=== PATIENT | female | born 1935 | race Caucasian/White ===

== ENCOUNTER 2016-07-25 13:17 | Inpatient (IN) | payer MEDICARE ==
[~2016-07-25] VITALS: Ht 162.6 cm; Wt 71.2 kg
[~2016-07-25 13:17] MED LIST: DICL75TA2 PO; LISI10TA2 PO; POTA99TA21 PO; RT-ALBUINH IH
[2016-07-25 15:43] VITALS: BP 123/71
--- OUTSIDE RECORDS SUMMARY | 2016-07-25 15:44 | XMS REPORT | Continuity of Care Document ---
Author Author [facility] Organization [facility] Address Unknown Phone Unavailable Care Team Providers Care Java Security Architect Name Role Phone PCP Unavailable Source Comments Some departments are not documenting in the electronic medical record. If you do not see the information that you expected, contact Release of Information in the Health Information Management department at [phone] for further assistance in locating additional records.[facility] Active Allergies and Adverse Reactions Not on File Current Medications Prescription Sig. Disp. Refills Start End Date Status Date lisinopril (PRINIVIL; Take 10 mg by mouth Active ZESTRIL) 10 mg tablet daily. vitamins, B complex Tab Take 1 Tab by mouth Active daily. POTASSIUM (POTASSIMIN PO) Take by mouth. Active other medication 1 Dose. Occuvite vitamin Active for eyes. Active Problems Problem Noted Date Chronic hepatitis C (HCC) 01/11/2013 Hypertension 01/11/2013 Social History Tobacco Use Types Packs/Day Years Used Date Former Smoker Quit: 06/17/1993 Smokeless Tobacco: Never Used Last Filed Vital Signs Vital Sign Reading Time Taken Blood Pressure 188/88 01/10/2013 1:46 PM CDT Pulse 69 01/10/2013 1:46 PM CDT Temperature 37 C (98.6 F) 01/10/2013 1:46 PM CDT Respiratory Rate - - Height 1.613 m (5' 3.5") 01/10/2013 1:46 PM CDT Weight 62.869 kg (138 lb 9.6 oz) 01/10/2013 1:46 PM CDT Body Mass Index 24.16 01/10/2013 1:46 PM CDT Oxygen Saturation - - Plan of Care Health Maintenance Due Date Last Done Comments Physical (Comprehensive) 1944 Exam Pertussis Vaccine 1948 Tetanus Vaccine 1954 Shingles Vaccine 1997 Osteoporosis Screening 2002 Prevnar/Pneumovax (#1) 2002 Influenza Vaccine 03/18/2016 Results from Last 3 Months Not on file
[2016-07-25] MEDS: FERROUS SULF 325 MG (IRON) TAB PO SCH (17:36)
[2016-07-25 17:45] VITALS: BP 119/69
[2016-07-25] MEDS: HYDROcodone/APAP 5 MG/325 MG (LORTAB) TAB PO PRN (20:25)
[2016-07-25] MEDS: APIXABAN 5 MG (ELIQUIS) TABLET PO SCH (20:25)
[2016-07-25] MEDS: ATORVASTATIN 40 MG (LIPITOR) TABLET PO SCH (20:25)
[2016-07-25] MEDS: lisINopril 20 MG (ZESTRIL) TAB PO SCH (20:25)
[2016-07-25] MEDS: meTOproloL SUCCINATE 50 MG (TOPROL XL) TAB PO SCH (20:25)
[2016-07-25] MEDS: DOCUSATE SODIUM 100 MG (COLACE) CAP PO SCH (20:26)
[2016-07-25] MEDS ORDERED: BISA-65 PO (21:54)
[2016-07-25] MEDS ORDERED: DOCU-143 PO (21:54)
[2016-07-25] MEDS ORDERED: METO-352 PO (21:54)
[2016-07-25] MEDS ORDERED: POTA-53 PO (21:54)
[2016-07-25] MEDS ORDERED: BUME1TAB4 PO (21:54)
[2016-07-25] MEDS ORDERED: FERR-74 PO (21:54)
[2016-07-25] MEDS ORDERED: ATOR40TA PO (21:54)
[2016-07-25] MEDS ORDERED: LEVO750T9 PO (21:54)
[2016-07-25] MEDS ORDERED: LISI-552 PO (21:54)
[2016-07-25] MEDS ORDERED: ASPI-999 PO (21:54)
[2016-07-25] MEDS ORDERED: APIX5TAB PO (21:54)
[2016-07-25] MEDS ORDERED: HYDR-3729 PO (21:56)
[2016-07-26 05:02] VITALS: BP 122/73
[2016-07-26] MEDS ORDERED: BISACODYL 5 MG (DULCOLAX) TABLET PO PRN (06:00)
[2016-07-26] MEDS: FERROUS SULF 325 MG (IRON) TAB PO SCH ×3 (06:05→17:37)
[2016-07-26] MEDS: KCL 20 MEQ TAB (K-DUR) PO SCH (06:05)
[2016-07-26] MEDS ORDERED: FLU TRIvalent (5 YOA+) 2016-17 (AFLURIA) 0.5 ML IM ONE (07:15)
[2016-07-26] MEDS: ASPIRIN 81 MG CHEW (CHILDREN'S ASA) PO SCH (08:41)
[2016-07-26] MEDS: APIXABAN 5 MG (ELIQUIS) TABLET PO SCH ×2 (08:41→20:53)
[2016-07-26] MEDS: meTOproloL SUCCINATE 50 MG (TOPROL XL) TAB PO SCH ×2 (08:41→20:52)
[2016-07-26] MEDS: lisINopril 20 MG (ZESTRIL) TAB PO SCH ×2 (08:41→20:53)
[2016-07-26] MEDS: DOCUSATE SODIUM 100 MG (COLACE) CAP PO SCH ×2 (08:41→20:51)
[2016-07-26] MEDS: BUMETANIDE 1 MG (BUMEX) TAB PO SCH (08:41)
--- NOTE | 2016-07-26 08:42 | ST Cognitive Linguistic Eval ---
Speech Evaluation-General Medical Diagnosis Aortic Stenosis Onset Date: Jul 25, 2016 Therapy Diagnosis Therapy Diagnosis: Questionable Cognitive Impairment Precautions Precautions/Isolations: Fall Prevention, Standard Precautions Referral Referring Physician: Dr. Chidi Lawrence Reason for Referral: Evaluation/Treatment Dr. Chidi Lawrence Medical History Pertinent Medical History: Arthritis, HTN Reviewed History: Yes Speech PLF-Current Status Prior Level of Function The patient denied challenges with speech, language, or cognition prior to admission. Subjective The patient was recently admitted to [facility] with a diagnosis of aortic stenosis. The patient greeted the clinician appropriately and agreed to participate in the cognitive screen on this date. Pain Location: Upper Location Body Site: Back Pain Description: Chronic Comment: The patient's RN was notified and will provide pain medication. Language Eval: Auditory Comprehends Simple Yes/No Ques: Functional Indent/Objects Multiple Sanchez: Functional Ident/Pics in Multiple Sanchez: Functional Follows 1-Step Commands: Functional Follows General Conversations: Functional Language Eval: Verbal Language Completes Spontaneous Greeting: Functional Produces Auto, Serial Info: Functional Imitates Simple Words/Phrases: Functional Word Finding: Functional Requests Basic Needs: Functional States Basic Personal Info: Functional Expresses Complex Ideas: Functional Cognitive Patient Orientation The patient was alert and oriented x3. Objective Cognitive Domain Attention: WNL Memory: WNL Problem Solving: Functional Objective Impression The patient demonstrated cognitive linguistic skills grossly within normal limits for completion of ADL's. Communication/Social Cognition Comprehension: 6 Expression: 6 Social Interaction: 5 Problem Solvin Memory: 6 Speech Patient Assess Expression of Ideas/Wants: Expression (4) Understanding Vebal Content: Understands (4) Brief Interview-Mental Status: Yes Repetition of Three Words: Three (3) Temporal Orientation: Year: Correct (3) Temporal Orientation: Month: Accurate within 5 days(2) Temporal Orientation: Day: Correct (1) Recall : Wear: Yes, no cue required (2) Recall : Color: Yes, no cue required (2) Recall : Bed: Yes, no cue required (2) Speech-Plan Treatment Plan Speech Therapy Treatment Plan: Discontinue ST (Eval, only.) Rehab Potential: Good Safety Risks/Education Teaching Recipient: Patient Teaching Methods: Discussion Response to Teaching: Verbalize Understanding Education Topics Provided: Plan of Care Time Speech Therapy Time In: 08:15 Speech Therapy Time Out: 08:30 Total Billed Time: 15 Billed Treatment Time 1, SPSNDCOMP CONSTANTINE CAZARES Jul 26, 2016 08:42
[2016-07-26] MEDS: HYDROcodone/APAP 5 MG/325 MG (LORTAB) TAB PO PRN ×4 (08:47→22:41)
--- NOTE | 2016-07-26 10:55 | Consultation-Hospitalist ---
KATIE RHODES MED STUDENT 07/26/16 1054: HPI History of Present Illness: HPI/Chief Complaint Reason for consultation: medical management CC: back pain HPI: Mrs. Brian is a 81yoF with a PMH of aortic stenosis who was admitted in late June with flash pulmonary edema, which improved with lasix at the time. She was transferred to [place] where she had a procedure for her aortic stenosis. She has since improved and was transferred to rehab here for therapy. Her main complaint is back pain. She states she has "bursitis" in her upper back and shoulders which is always painful. Her lower back has been hurting recently though after her procedure. She believes she needs to be on a better pain regimen for medications to get ahead of this pain. She was working with the therapist during this interview. Nursing states that the patient may need something for gas, and also reiterates the patient needing something for back pain. Source: patient, RN/MD Exam Limitations: no limitations Date Seen 07/26/16 Attending Physician Hollie Rivera MD PCP Dawn Powell MD Referring Physician Date of Admission Jul 25, 2016 at 15:25 Home Medications & Allergies Home Medications Reviewed patient Home Medication Reconciliation Form Allergies Coded Allergies: No Known Drug Allergies (Unverified , 07/12/16) Past Duepmsp-Vzoycr-Tajkzd Hx Patient Social History Alcohol Use: Occasionally Uses Recreational Drug Use: No Smoking Status: Former Smoker Type Used: Cigarettes Physical Abuse Screen: No Sexual Abuse: No Recent Foreign Travel: No Contact w/other who traveled: No Recent Hopitalizations: Yes (aortic valve replacement) Recent Infectious Disease Expo: No Immunizations Up To Date Tetanus Booster (TDap): Unknown Date of Pneumonia Vaccine: Jul 19, 2016 Seasonal Allergies Seasonal Allergies: No Surgeries HX Surgeries: No Surgeries: Cardiac (aortic valve replacement), Coronary Stent Respiratory Hx Respiratory Disorders: No Cardiovascular Hx Cardiovascular Disorders: Yes Cardiac Disorders: Atrial Fibrillation (paroxysmal), High Cholesterol, Hypertension Neurological Hx Neurological Disorders: No Reproductive System Hx Reproductive Disorders: No Sexually Transmitted Disease: No HIV/AIDS: No Female Reproductive Disorders: Denies Genitourinary Hx Genitourinary Disorders: No Gastrointestinal Hx Gastrointestinal Disorders: No Musculoskeletal Hx Musculoskeletal Disorders: No Endocrine Hx Endocrine Disorders: No HEENT HX ENT Disorders: No HEENT Disorders: Cataract Cancer Hx Cancer: No Psychosocial Hx Psychiatric Problems: No Integumentary HX Skin/Integumentary Disorder: No Blood Transfusions Hx Blood Disorders: No Adverse Reaction to a Blood Tr: No Family Medical History Significant Family History: No Pertinent Family Hx Family Hx: Patient reports no known family medical history. Review of Systems Constitutional: No chills, No fever Respiratory: No short of breath Cardiovascular: No chest pain, No palpitations Gastrointestinal: No abdominal pain, other (c/o "gas") Musculoskeletal: back pain (worse in lower back) All Other Systems Reviewed Negative Unless Noted: Yes Physical Exam Physical Exam Vital Signs Vital Sign - Last 12Hours 07/28/16 06:00 Temp 98.8 Pulse 59 Resp 20 B/P 139/68 Pulse Ox 93 O2 Delivery Room Air Capillary Refill : General Appearance: No Apparent Distress WD/WN HEENT: PERRL/EOMI Normal ENT Inspection Pharynx Normal Neck: Full Range of Motion Normal Inspection Non Tender Supple Respiratory: Chest Non Tender Lungs Clear Normal Breath Sounds No Accessory Muscle Use No Respiratory Distress Cardiovascular: Regular Rate, Rhythm No Gallop No JVD No Murmur Normal Peripheral Pulses Other (2+ edema to upper shins) Gastrointestinal: Normal Bowel Sounds No Organomegaly No Pulsatile Mass Non Tender Soft Rectal: Deferred Back: Normal Inspection No CVA Tenderness No Vertebral Tenderness Extremity: Normal Capillary Refill Normal Inspection Normal Range of Motion Non Tender No Calf Tenderness Neurologic/Psychiatric: Alert Oriented x3 No Motor/Sensory Deficits Normal Mood/Affect Skin: Normal Color Warm/Dry Lymphatic: No Adenopathy Results Results/Procedures Lab Laboratory Tests 08/02/16 04:55 Assessment/Plan Admission Diagnosis PAF, fluid overload, deconditioning, aortic valve replacement Assessment and Plan 81yoF with recent aortic valve replacement and PAF with deconditioning from extended hospital stay currently in rehab in need of medical management. 1. aortic valve replacement -continue eliquis -follow up appointment in [place] 2. CAD -continue [employer] meds including statin, beta terry, THUY inh 3. PAF -afib during her admission at [facility], currently regular rate and rhythm 4. Deconditioning -continue inpatient rehab with therapies 5. Chronic back pain -continue therapy as this should help with chronic pain -Lortab 5mg prn for when pain gets too bad 6. anemia -continue iron supplementation 7. edema -continue diuretic therapy with potassium replacement Clinical Quality Measures DVT/VTE Risk/Contraindication: Risk Factor Score Per Nursin RFS Level Per Nursing on Admit: 4+=Very High ERMA MONTGOMERY DO 07/26/16 1222: HPI History of Present Illness: HPI/Chief Complaint Pt's main complaint is the back pain and we will start Ultram to see if that helps her since the Lortab causes her to be "loopy." Source: patient, RN/MD Exam Limitations: no limitations Home Medications & Allergies Allergies Coded Allergies: No Known Drug Allergies (Unverified , 07/12/16) Past Blfalks-Htikxr-Wmldbc Hx Surgeries HX Surgeries: Yes Surgeries: Cardiac (aortic valve replacement), Coronary Stent Respiratory Hx Respiratory Disorders: No Cardiovascular Hx Cardiovascular Disorders: Yes Cardiac Disorders: Atrial Fibrillation (paroxysmal), Coronary Artery Disease, High Cholesterol, Hypertension Neurological Hx Neurological Disorders: No Genitourinary Hx Genitourinary Disorders: No Gastrointestinal Hx Gastrointestinal Disorders: Yes Gastrointestinal Disorders: Chronic Constipation Musculoskeletal Hx Musculoskeletal Disorders: No Endocrine Hx Endocrine Disorders: No HEENT HX ENT Disorders: No Cancer Hx Cancer: No Psychosocial Hx Psychiatric Problems: No Family Medical History Family Hx: Patient reports no known family medical history. Review of Systems Constitutional: see HPI EENTM: no symptoms reported see HPI Respiratory: no symptoms reported see HPI Cardiovascular: see HPI Gastrointestinal: see HPI Genitourinary: see HPI Musculoskeletal: back pain Skin: see HPI Psychiatric/Neurological: See HPI Physical Exam Physical Exam Vital Signs Vital Sign - Last 12Hours 07/25/16 15:43 Temp 98.9 Pulse 73 Resp 18 B/P 123/71 Pulse Ox 94 O2 Delivery Room Air General Appearance: No Apparent Distress WD/WN Eyes: Bilateral Eye Normal Inspection, Bilateral Eye PERRL HEENT: PERRL/EOMI Normal ENT Inspection Pharynx Normal Neck: Full Range of Motion Normal Inspection Non Tender Supple Carotid Bruit Respiratory: Chest Non Tender Lungs Clear Normal Breath Sounds No Accessory Muscle Use No Respiratory Distress Cardiovascular: Regular Rate, Rhythm No Edema No Gallop No JVD No Murmur Normal Peripheral Pulses Gastrointestinal: Normal Bowel Sounds No Organomegaly No Pulsatile Mass Non Tender Soft Back: Normal Inspection No CVA Tenderness No Vertebral Tenderness Extremity: Normal Capillary Refill Normal Inspection Normal Range of Motion Non Tender No Calf Tenderness No Pedal Edema Neurologic/Psychiatric: Alert Oriented x3 No Motor/Sensory Deficits Normal Mood/Affect Skin: Normal Color Warm/Dry Lymphatic: No Adenopathy Assessment/Plan Admission Diagnosis status post aortic valve replacement Paroxysmal atrial fibrillation Severe back pain with stability Indigestion CAD Assessment and Plan Simethicone Ultram Lortab Bowel regimen HOLLIE RIVERA MD 08/03/16 0909: Home Medications & Allergies Allergies Coded Allergies: No Known Drug Allergies (Unverified , 07/12/16) Past Wypwwss-Xiemfq-Dhpncx Hx Family Medical History Family Hx: Patient reports no known family medical history. Physical Exam Physical Exam Vital Signs Vital Sign - Last 12Hours 07/28/16 06:00 Temp 98.8 Pulse 59 Resp 20 B/P 139/68 Pulse Ox 93 O2 Delivery Room Air Results Results/Procedures Lab Laboratory Tests 08/02/16 04:55 Assessment/Plan Assessment and Plan ATTESTATION;THIS IS NOT MY CONSULT.IT IS A HOSPITALISTS CONSULT.I DO NOT CURRENTLY SUPERVISE ANY MEDICAL STUDENTS OR MID-LEVELS IN MY HOSPITAL BASED IN- PATIENT PRACTICE.I DISCUSSED THIS ISSUE WITH THE [facility] DEPT THE WEEK OF 07/26/16 AND THEY SAID THAT THEY WOULD FOLLOW-UP WITH THE IT DEPT TO CORRECT HOLLIE RIVERA MD PM&R B.KATIE GARCIAS MED STUDENT Jul 26, 2016 10:54 ERMA MONTGOMERY DO Jul 26, 2016 12:22 HOLLIE RIVERA MD Aug 03, 2016 09:09 ERMA MONTGOMERY DO Jul 26, 2016 12:22 HOLLIE RIVERA MD Aug 03, 2016 09:09
[2016-07-26] MEDS ORDERED: LACTULOSE SYRUP 10GM/15ML (ENULOSE) 30ML UDC PO PRN (12:30)
[2016-07-26] MEDS: SIMETHICONE 80 MG (MYLICON) CHEW PO SCH ×3 (12:38→20:52)
--- NOTE | 2016-07-26 13:48 | HISTORY AND PHYSICAL ---
DATE OF ADMISSION: 07/25/2016 CHIEF COMPLAINT: Limited endurance. HISTORY OF PRESENT ILLNESS: The patient is a 81-year-old female who presented to outside hospital with complaints of shortness of breath. She was found to be in volume overload and flash pulmonary edema. She required BiPAP, IV diuretics that improved her symptoms. Echocardiogram demonstrated severe Aortic stenosis with a valve area of 0.6 cm. and a mean gradient of 78 mmHg. She was also diagnosed with acute diastolic dysfunction probably related to her left ventricular hypertrophy. She underwent left heart catheterization by Dr. Linn which demonstrated mild to moderate multivessel coronary artery disease. She was transferred to [facility] for surgical evaluation of her severe aortic stenosis and the patient underwent repair with doctor , cardiac surgery. The patient is now referred to Inpatient Rehabilitation Unit at [facility] due to her general debilitation. She had been independent prior to this and living alone in [place]. She has a daughter that lives in [place], [place]. PCP: Dawn Powell, [facility]. Currently, she requires assistance for ADLs and mobility skills. She is complaining of constipation, hospitalist service Dr. Joseph et al has been consulted. Lab work has been ordered. Bowel program adjusted. She suffers from suffers from chronic back pain for which he takes Lortab and tramadol p.r.n.She is Min assist for transfers and ambulation with walker.She is Mod I for eating and SBA for Upper body adls and min assist for lower body ADLS She is Continent of Bowel and Bladder PAST MEDICAL HISTORY: 1. Coronary artery disease. 2. Hyperlipidemia. 3. Hypertension. 4. Cataracts. 5. Aortic stenosis. 6. OA/Chronic back pain PAST SURGICAL HISTORY: 1. As per above, cataract extraction. 2. Lumpectomy. ALLERGIES: No known medication allergies. FAMILY HISTORY: Noncontributory. SOCIAL HISTORY: She lives alone, former smoker, caffeine use positive. No alcohol use. REVIEW OF SYSTEMS: Ten-point review of systems significant for mild shortness of breath. Chronic back pain and constipation. MEDICATIONS: 1. Levaquin 750 mg p.o. q. 48 hours. 2. Mylicon 80 mg p.o. after meals and at bedtime. 3. Tramadol 50 mg p.o. t.i.d. p.r.n. moderate pain. 4. Lactulose 10 grams p.o. t.i.d. p.r.n. constipation. 5. ASA 81 mg p.o. daily. 6. Bumex 1 mg p.o. daily. 7. K-Dur 20 milliequivalents p.o. daily. 8. Dulcolax 5 mg p.o. daily p.r.n. constipation. 9. Eliquis 5 mg p.o. b.i.d. 10. Lipitor 40 mg p.o. at bedtime. 11. Colace 100 mg p.o. b.i.d. 12. Lisinopril 20 mg p.o. b.i.d. 13. Toprol-XL 50 mg p.o. b.i.d. 14. Ferrous sulfate 325 mg p.o. t.i.d. with meals. 15. Lortab 5, 1 to 2 tablets p.o. q.4 hours p.r.n. moderate pain. The case was discussed with nurse practitioner and Dr. Lawrence by phone on day of transfer to this facility. PHYSICAL EXAMINATION: Significant for a pleasant female, appearing her stated age, alert and oriented in no acute distress. VITAL SIGNS: Temperature is 99.5, pulse 68, respirations 18, blood pressure 122/73, O2 sat 92% on room air. HEENT: Vision, speech, hearing, grossly intact. No oral lesion is noted. NECK: Supple without mass. HEART: Regular rhythm. CHEST: Clear. ABDOMEN: Soft, nontender. Bowel sounds present. EXTREMITIES: The patient has 2+ edema in both ankles. No calf tenderness. MUSCULOSKELETAL: The patient has good minus strength throughout. SKIN: Her sternotomy site is intact and healing well. No drainage noted. NEUROLOGIC: Sensation is grossly intact to touch. Cognition grossly intact. Strength is 4+/5 BLES and functional Upper extremities with some guarding due to recent surgery. IMPRESSION: 1. General debilitation secondary to valvular heart disease, status post aortic valve replacement and treated, treatment of PAF and fluid overload with some residual peripheral edema. 2. Coronary artery disease, stable on medications. 3. Paroxysmal atrial fibrillation treated at [facility], currently in regular rhythm. 4. Chronic back pain; pain medication as per above. 5. Anemia, continue iron supplementation. 6. Edema, continue diuretic therapy, and potassium replacement. 7. Postop constipation and treat as per above. PLAN: The patient will comprehensive program of inpatient rehabilitation with the goal of maximizing level of functional dependence prior to discharge home along with home health care. The patient will have PT/OT 90 minutes per day, each discipline, 5 days week for gait strengthening, conditioning, ADLs, any patient/family/caregiver training necessary, any adaptive equipment and training necessary. Therapy with cardiac and fall precautions. Speech therapy to do cognitive assessment and treat as indicated. Rehabilitation nursing to assist with bowel, bladder, skin, wound care, medication administration, pain management. Continue with Eliquis for DVT prophylaxis. payroll services analyst to assist with discharge planning, community. Follow-up with Dr. Joseph hospitalist and hospitalist service as per their schedules. Check labs in a.m. ESTIMATED LENGTH OF STAY: Two weeks. PROGNOSIS: Rehab prognosis appears good for goal of discharging to home with home health care and family and modified independence to supervision ADLs and mobility skills. DIET: Heart healthy. CODE STATUS: Full code. POST ADMISSION PHYSICIAN ASSESSMENT: The preadmission screen agrees with the post admission assessment that the patient is a good candidate for inpatient rehabilitation. She appears to be well motivated to participate in 3 hours of therapy a day. She should be able to participate in 3 hours of therapy, from a surgical standpoint. She should benefit from the 3 hours of therapy a day. She has reasonable discharge plan, reasonable discharge rehabilitation goals and a supportive family. She has various comorbidities that need to be closely monitored with medications and treatments adjusted on a daily basis as it. These include her history of congestive heart failure, recent valvular heart replacement. Her postop anemia, postop constipation and history of hypertension. Barriers to discharge for this patient are for her to be modified independent for ADLs and mobility skills prior to discharge home with family and home health care. Risks for this patient include: 1. Recurrent congestive heart failure. 2. Poorly controlled hypertension. 3. Poorly controlled pain. 4. Fall. 5. Fracture. 6. DVT. 7. Pulmonary embolism. 8. Urinary retention. 9. UTI. 10. Respiratory infection. 11. Aspiration. Job ID: [id number] Dictated Date: 07/26/2016 13:10:27 Fish Flipper Date: 07/26/2016 13:24:00/yonny POLLACK
--- NOTE | 2016-07-26 15:02 | Physical Therapy Evaluation ---
PT Evaluation-General Medical Diagnosis Admission Date Jul 25, 2016 at 15:25 Medical Diagnosis: Aortic Stenosis Onset Date: Jul 25, 2016 Therapy Diagnosis Therapy Diagnosis: impaired mobility, strength, endurance Height/Weight Height (Feet): 5 Height (Inches): 4.00 Weight (Pounds): 155 Weight (Ounces): 6.0 Precautions Precautions/Isolations: Fall Prevention, Standard Precautions Referral Physician: Howard Reason for Referral: Evaluation/Treatment Medical History Pertinent Medical History: Arthritis, HTN Additional Medical History Coronary artery disease, Hyperlipidemia, Hypertension, Cataracts, Aortic stenosis Current History surgery to repair aortic valve Reviewed History: Yes Social History Home: Single Level Current Living Status: Alone Entry Into Home: Stairs With Railing PT Steps Into Home: 3 patient enters from the back Prior/Core FIM Prior Level of Function Functional [place] Measure 0=Not Assessed/NA 4=Minimal Assistance 1=Total Assistance 5=Supervision or Setup 2=Maximal Assistance 6=Modified [place] 3=Moderate Assistance 7=Complete [place] Bed Mobility: 7 Transfers (B,C,W/C) (FIM): 7 Gait: 7 PT Evaluation-Current Subjective Will be co-treating with OT due to issues with pain, poor endurance and activity tolerance. OT tried to evaluate her earlier and she actually refused tx due to pain, nurse was supposed to get her pain meds and will co-treat to lessen stress on patient. Pain Comment: not rated, patient states back pain is much better Pt/Family Goals to be independent at home Objective Patient Orientation: Person, Place, Situation ROM/Strength ROM Lower Extremities WNL Strenght Lower Extremities 4+/5 gross bilateral lower extremities Integumentary/Posture Bowel Incontinence: No Neuromuscular (Tone, Coordination, Reflexes) WNL Sensory Vision: Functional Hearing: Functional Sensation Right Lower Extremit: Intact Sensation Left Lower Extremity: Intact Transfers Functional [place] Measure 0=Not Assessed/NA 4=Minimal Assistance 1=Total Assistance 5=Supervision or Setup 2=Maximal Assistance 6=Modified [place] 3=Moderate Assistance 7=Complete IndependenceIRFPAI Quality Coding Scale 6 Independent with activity with or without an assistive device 5 Patient requires set up or clean up by helper. Patient completes activity by themselves 4 Supervision or touching assist (CGA). [place] provide cues , steadying assist 3 The helper provides less than half the effort to complete the activity 2 The helper provides more than half the effort to complete the activity 1 Dependent. The helper does all the effort to complete an activity 7 Patient refused to complete or attempt activity 9 The patient did not perform the activity before the current illness or injury 88 Not attempted due to Medical conditions or safety concerns Transfers (B, C, W/C) (FIM): 4 Scootin Rollin Roll Left to Right (QC): 4 Supine to/from Sit: 5 Sit to/from Stand: 4 (CGA) Sit to Lying (QC): 4 Lying to Sitting/Side of Bed(Q: 4 Sit to Stand (QC): 4 Car Transfer (QC): 88 cues for safety and hand placement, patient instructed on lifting/chest precautions Gait Does the Patient Walk?: Yes Mode of Locomotion: Walk Anticipated Mode of Locomotion: Walk Gait (FIM): 4 Walk 10 feet (QC): 4 Walk 50 ft with 2 Turns(QC): 4 Walk 150 ft (QC): 4 Walking 10ft on uneven surface: 88 Distance: 150'x2 Gait Level of Assist: 4 (CGA) Gait Assistive Device: FWW Comments/Gait Description slow, but no LOB. Patient ambulated 150'x2 with a rolling walker with CGA. She had no trouble ambulating 10', 50' with at least 2 turns of 90 degrees also. She did not ambulate over an uneven surface this morning. Wheelchair Training Does the Pt Use a Wheelchair?: No Stairs Stairs (FIM): 2 #of Steps: 4 Level of Assist: 4 1 Step (curb) (QC): 4 4 Steps (QC): 4 12 Steps (QC): 88 Patient could go up and down 4 steps using 2 handrails with CGA and cues for safety and foot placement. Balance Sitting Static: Normal Sitting Dynamic: Normal Standing Static: Good Standing Dynamic: Good Picking up an Object (QC): 88 Treatment PT assisted patient with balance/guarding during transfers, bathing and dressing with OT. Patient ambulated and performed stairs. Assessment/Needs Patient has impaired mobility, strength, endurance, and balance post aortic valve replacement. Rehab Potential: Fair PT Short Term Goals Short Term Goals Time Frame: Aug 02, 2016 Transfers (B,C,W/C) (FIM): 5 Gait (FIM): 5 Gait Distance Comment: 300' Gait Level of Assist: 5 Gait Assistive Device: FWW PT [facility] Goals Senior Care Goals PT Senior Care Goals Time Frame: Aug 16, 2016 Transfers (B,C,W/C) (FIM): 6 Sit to Lying (QC): 6 Lying-Sitting on Side/Bed(QC): 6 Sit to Stand (QC): 6 Rollin Roll Left to Right (QC): 6 Chair/Juj-xz-Nldti Xfer(QC): 6 Car Transfer (QC): 4 Does the Patient Walk: Yes Gait (FIM): 6 Distance: 500' Walk 10 feet (QC): 6 Walk 10ft-Uneven Surface(QC): 6 Walk 50ft with 2 Turns (QC): 6 Walk 150 ft (QC): 6 Gait Level of Assist: 6 Gait Assistive Device: FWW Stairs (FIM): 5 # of Steps: 12 1 Step (curb) (QC): 4 4 Steps (QC): 4 12 Steps (QC): 4 Stairs Level Of Assist: 5 Picking up an Object (QC): 5 PT Plan Problem List Problem List: Activity Tolerance, Functional Strength, Safety, Balance, Gait, Transfer, Bed Mobility Treatment/Plan Treatment Plan: Continue Plan of Care Treatment Plan: Bed Mobility, Education, Functional Activity [place], Functional Strength, Group Therapy, Gait, Safety, Therapeutic Exercise, Transfers Treatment Duration: Aug 16, 2016 # of days/week 5-6 Visits Per Week: 10-11 Minutes/Day (M-F): 60-90 Minutes/Day (Sat/[place]): 15-30 Pt/Family Agrees w/Plan: Yes Safety Risks/Education Patient Education: Gait Training, Transfer Techniques, Steps, Safety Issues Teaching Recipient: Patient Teaching Methods: Demonstration, Discussion Response to Teaching: Reinforcement Needed Discharge Recommendations Plan Patient will perform bed mobility and transfer training, balance and endurance training, functional strengthening, stair training, gait training, education, to improve functional mobility and independence at home. Therapy D/C Recommendations: Home w/ Family Support Time/GCodes Time In: 1010 Time Out: 1100 Total Billed Treatment Time: 50 Total Billed Treatment 1 visit EVL 10 min GT 20 min FA 20 min PT performed eval from [id number] and co-treated with OT from [id number]. OT performed their eval before PT. JANET KEENE PT Jul 26, 2016 15:02
--- NOTE | 2016-07-26 15:25 | Physical Therapy Daily Note ---
PT Daily Note-Current Subjective Patient in chair pre tx, agrees to PT. Will be co-treating with OT this afternoon because patient has had pain issues today and has poor endurance. Pain Numeric Pain Scale: 2 Comment: back Appearance Patient in chair post tx with family, has nurse call, phone, tray, all needs met. Mental Status Patient Orientation: Normal For Age Transfers Functional [place] Measure 0=Not Assessed/NA 4=Minimal Assistance 1=Total Assistance 5=Supervision or Setup 2=Maximal Assistance 6=Modified [place] 3=Moderate Assistance 7=Complete IndependenceIRFPAI Quality Coding Scale 6 Independent with activity with or without an assistive device 5 Patient requires set up or clean up by helper. Patient completes activity by themselves 4 Supervision or touching assist (CGA). [place] provide cues , steadying assist 3 The helper provides less than half the effort to complete the activity 2 The helper provides more than half the effort to complete the activity 1 Dependent. The helper does all the effort to complete an activity 7 Patient refused to complete or attempt activity 9 The patient did not perform the activity before the current illness or injury 88 Not attempted due to Medical conditions or safety concerns Transfers (B, C, W/C) (FIM): 5 Sit to/from Stand: 5 Patient much more steady this afternoon. Gait Training Does the Patient Walk?: Yes Gait (FIM): 5 Distance: 150'x2 Gait Level of Assist: 5 Gait Assistive Device: FWW Much steadier, stronger ambulation but still slow Neuromuscular PT assisted with patient balance/guarding while OT worked on dynamic balance activities with balloon and activities picking up objects with a acid conditioning worker. PT then had patient step back and forth over obstacles. Treatments transfers, ambulation, balance training Assessment Current Status: Fair Progress patient steadier and mobility in general PT Short Term Goals Short Term Goals Time Frame: Aug 02, 2016 Transfers (B,C,W/C) (FIM): 5 Gait (FIM): 5 Gait Distance Comment: 300' Gait Level of Assist: 5 Gait Assistive Device: FWW PT [facility] Goals [facility] Goals PT Commercial Agent Goals Time Frame: Aug 16, 2016 Transfers (B,C,W/C) (FIM): 6 Sit to Lying (QC): 6 Lying-Sitting on Side/Bed(QC): 6 Sit to Stand (QC): 6 Rollin Roll Left to Right (QC): 6 Chair/Syv-mw-Ntdqt Xfer(QC): 6 Car Transfer (QC): 4 Does the Patient Walk: Yes Gait (FIM): 6 Distance: 500' Walk 10 feet (QC): 6 Walk 10ft-Uneven Surface(QC): 6 Walk 50ft with 2 Turns (QC): 6 Walk 150 ft (QC): 6 Gait Level of Assist: 6 Gait Assistive Device: FWW Stairs (FIM): 5 # of Steps: 12 1 Step (curb) (QC): 4 4 Steps (QC): 4 12 Steps (QC): 4 Stairs Level Of Assist: 5 Picking up an Object (QC): 5 PT Plan Problem List Problem List: Activity Tolerance, Functional Strength, Safety, Balance, Gait, Transfer Treatment/Plan Treatment Plan: Continue Plan of Care Treatment Plan: Bed Mobility, Education, Functional Activity [place], Functional Strength, Group Therapy, Gait, Safety, Therapeutic Exercise, Transfers Treatment Duration: Aug 16, 2016 Visits Per Week: 10-11 Minutes/Day (M-F): 60-90 Minutes/Day (Sat/[place]): 15-30 Safety Risks/Education Patient Education: Gait Training, Transfer Techniques, Safety Issues Teaching Recipient: Patient Teaching Methods: Demonstration, Discussion Response to Teaching: Reinforcement Needed Time/GCodes Time In: 1400 Time Out: 1435 Total Billed Treatment Time: 35 Total Billed Treatment 1 visit GT 15 min NM 20 min Co-treated with OT for the whole 35 min JANET KEENE PT Jul 26, 2016 15:25
--- NOTE | 2016-07-26 16:57 | Occupational Therapy Eval ---
OT Evaluation-General/PLF Medical Diagnosis Admission Date Jul 25, 2016 at 15:25 Medical Diagnosis: Aortic Stenosis Onset Date: Jul 25, 2016 Therapy Diagnosis Therapy Diagnosis: Weakness Height/Weight Height (Feet): 5 Height (Inches): 4.00 Weight (Pounds): 155 Weight (Ounces): 6.0 Precautions Precautions/Isolations: Standard Precautions Safety Interventions: None Weight Bear Status Weight Bearing Restriction: Weight Bearing/Tolerated Referral Physician: Howard Referral Reason: Activity Tolerance, Self Care, Evaluation/Treatment, Strengthening/ROM Medical History Pertinent Medical History: Arthritis, HTN Current History Pt. lives alone. Reviewed History: Yes Social History Home: Single Level Current Living Status: Alone Entry Into Home: Stairs With Railing Steps Into Home: 3 ADL-Prior Level of Function ADL PLOF Comments Prior to hospitalization, pt. was independent with all ADLs and driving. States that she retired from [employer] approximately 1 year ago. DME/Equipment: Shower DME/Equipment Comments Pt. states that she has no equipment at home. Drive Self: Yes OT Current Status Subjective When evaluation began, pt. was very upset. Yelled, "I'm not doing an f'ing thing until I get my pain medication." Attempted to explain process of rehab and goals of OT. Pt. states again, "I'm not getting out of the f'ing bed until I get my pain pills." Went to nursing immediately and she administered pain medication. Came back to co-treat with physical therapy due to amount of pain, and inability to participate in multiple skilled sessions. Please see below. Pt. reports 10/10 pain in back from "bursitis." Appearance Pt. at first attempt had her head in her hands and was verbal with this OT. When OT and PT came back together, pt. had had pain medication and states that she feels "much better." Reports no further pain. Mental Status/Objective Patient Orientation: Person, Place, Time, Situation Current Glasses/Contacts: Yes Hand Dominance: Right Upper Extremity ROM WFL Upper Extremity Coordination intact Upper Extremity Strength NT due to pain level and sternal precautions. ADL-Treatment Functional [place] Measure 0=Not Assessed/NA 4=Minimal Assistance 1=Total Assistance 5=Supervision or Setup 2=Maximal Assistance 6=Modified [place] 3=Moderate Assistance 7=Complete IndependenceIRFPAI Quality Coding Scale 6 Independent with activity with or without an assistive device 5 Patient requires set up or clean up by helper. Patient completes activity by themselves 4 Supervision or touching assist (CGA). [place] provide cues , steadying assist 3 The helper provides less than half the effort to complete the activity 2 The helper provides more than half the effort to complete the activity 1 Dependent. The helper does all the effort to complete an activity 7 Patient refused to complete or attempt activity 9 The patient did not perform the activity before the current illness or injury 88 Not attempted due to Medical conditions or safety concerns Eating (FIM): 6 Eating (QC): 6 Grooming (FIM): 5 (SBA to brush teeth and hair.) Oral Hygiene (QC): 4 Bathing (FIM): 5 (Pt. is able to spongebathe on side of bed with SBA.) Shower/Bathe Self (QC): 4 Upper Body Dressing (FIM): 5 Upper Body Dressing (QC): 5 Lower Body Dressing (FIM): 5 (Pt. is able to doff pants, and don underwear/ shoes with SBA.) Lower Body Dressing (QC): 5 On/Off Footwear (QC): 5 Toileting (FIM): 5 Toileting Hygiene (QC): 5 Transfers (B, C, W/C) (FIM): 5 Toilet/Commode Transfer (FIM): 5 Toilet Transfer (QC): 5 After spongebath, pt. agrees to ambulate with PT/OT, and finish evaluation. Pt. required several rest breaks during treatment. Please see PT note for level of distance ambulated. Other Treatments Pt. declines showering. Co-treated with PT due to pt's original pain level, fatigue level, and inability to process full 3 hours. PT focused on dynamic balance and coordination with ambulation while OT addressed ADL skills. Education OT Patient Education: Correct positioning, Exercise program, Modified ADL techniques, Progress toward Goal/Update tx plan, Purpose of tx/functional activities, Reviewed precautions, Rehab process, Transfer techniques Teaching Recipient: Patient Teaching Methods: Demonstration, Discussion Response to Teaching: Verbalize Understanding, Return Demonstration OT Short Term Goals Short Term Goals Transfers (B,C,W/C) (FIM): 5 1=Demonstrate adherence to instructed precautions during ADL tasks. 2=Patient will verbalize/demonstrate understanding of assistive devices/ modifications for ADL. 3=Patient will improve strength/tolerance for activity to enable patient to perform ADL's. OT Radiator Tester Goals Radiator Tester Goals Time Frame: Aug 02, 2016 Eating (FIM): 6 Eating (QC): 6 Oral Hygiene (QC): 6 Grooming(FIM): 6 Bathing(FIM): 6 Shower/Bathe Self (QC): 6 Upper Body Dressing(FIM): 6 Upper Body Dressing (QC): 6 Lower Body Dressing(FIM): 6 Lower Body Dressing (QC): 6 On/Off Footwear (QC): 6 Toileting(FIM): 6 Toileting Hygiene (QC): 6 Transfers (B,C,W/C) (FIM): 6 Toilet/Commode Transfer(FIM): 6 Toilet/Commode Transfer (QC): 6 Shower Transfer(FIM): 6 Additional Goals: 1-Demonstrate ADL Tasks, 2-Verbalize Understanding, 3- ImproveStrength/[place] 1=Demonstrate adherence to instructed precautions during ADL tasks. 2=Patient will verbalize/demonstrate understanding of assistive devices/ modifications for ADL. 3=Patient will improve strength/tolerance for activity to enable patient to perform ADL's. OT Education/Plan Problem List/Assessment Assessment: Decreased Activ Tolerance, Decreased UE Strength, Dependent Transfers, Impaired I ADL's, Impaired Self-Care Skills Discharge Recommendations Plan/Recommendations: Continue POC Therapy D/C Recommendations: Home w/ Family Support, Home Independently Equpiment Recommendations-D/C: Bath Chair Treatment Plan/Plan of Care Treatment,Training & Education: Yes Patient would benefit from OT for education, treatment and training to promote independence in ADL's, mobility, safety and/or upper extremity function for ADL' s. Plan of Care: ADL Retraining, Functional Mobility, UE Funct Exercise/Act Treatment Duration: Aug 02, 2016 Agreement: Yes Rehab Potential: Good Time/GCodes Start Time: 08:30 Stop Time: 11:00 Total Time Billed (hr/min): 50 Billed Treatment Time [id number] OT 1Carli complexityx 10 minutes [id number] PT eval no charge [id number] ADL x 40minutes co-treat with PT-see above. CORTNEY ANDRADE OT Jul 26, 2016 16:57
--- NOTE | 2016-07-26 17:10 | Occupational Ther Daily Note ---
OT Current Status-Daily Note Subjective No pain reported. Appearance Pt. up in chair. States that she is very fatigued. Mental Status/Objective Patient Orientation: Person, Place Functional [place] Measure 0=Not Assessed/NA 4=Minimal Assistance 1=Total Assistance 5=Supervision or Setup 2=Maximal Assistance 6=Modified [place] 3=Moderate Assistance 7=Complete [place] ADL-Treatment Functional [place] Measure 0=Not Assessed/NA 4=Minimal Assistance 1=Total Assistance 5=Supervision or Setup 2=Maximal Assistance 6=Modified [place] 3=Moderate Assistance 7=Complete IndependenceIRFPAI Quality Coding Scale 6 Independent with activity with or without an assistive device 5 Patient requires set up or clean up by helper. Patient completes activity by themselves 4 Supervision or touching assist (CGA). [place] provide cues , steadying assist 3 The helper provides less than half the effort to complete the activity 2 The helper provides more than half the effort to complete the activity 1 Dependent. The helper does all the effort to complete an activity 7 Patient refused to complete or attempt activity 9 The patient did not perform the activity before the current illness or injury 88 Not attempted due to Medical conditions or safety concerns Other Treatment OT and PT co-treated due to pt's fatigue level. Unable to tolerate seperate treatments. OT focused on ADL skills and assisted with simulation of feeding cats at home while PT focused on dynamic standing balance. Pt. stood several times approximately 5 minutes each and practiced batting at balloon for increased endurance. Required several rest breaks. OT focused on having pt. chart picker avina bags first with car hop, and then by bending over, as she will have to do to feed her cats. Multiple rest breaks noted. Education OT Patient Education: Correct positioning, Exercise program, Modified ADL techniques, Progress toward Goal/Update tx plan, Purpose of tx/functional activities, Reviewed precautions, Rehab process, Transfer techniques Teaching Recipient: Patient Teaching Methods: Demonstration, Discussion Response to Teaching: Verbalize Understanding, Return Demonstration OT Short Term Goals Short Term Goals Transfers (B,C,W/C) (FIM): 5 1=Demonstrate adherence to instructed precautions during ADL tasks. 2=Patient will verbalize/demonstrate understanding of assistive devices/ modifications for ADL. 3=Patient will improve strength/tolerance for activity to enable patient to perform ADL's. OT Transcribing Machine Mechanic Goals Transcribing Machine Mechanic Goals Time Frame: Aug 02, 2016 Eating (FIM): 6 Eating (QC): 6 Oral Hygiene (QC): 6 Grooming(FIM): 6 Bathing(FIM): 6 Shower/Bathe Self (QC): 6 Upper Body Dressing(FIM): 6 Upper Body Dressing (QC): 6 Lower Body Dressing(FIM): 6 Lower Body Dressing (QC): 6 On/Off Footwear (QC): 6 Toileting(FIM): 6 Toileting Hygiene (QC): 6 Transfers (B,C,W/C) (FIM): 6 Toilet/Commode Transfer(FIM): 6 Toilet/Commode Transfer (QC): 6 Shower Transfer(FIM): 6 Additional Goals: 1-Demonstrate ADL Tasks, 2-Verbalize Understanding, 3- ImproveStrength/[place] 1=Demonstrate adherence to instructed precautions during ADL tasks. 2=Patient will verbalize/demonstrate understanding of assistive devices/ modifications for ADL. 3=Patient will improve strength/tolerance for activity to enable patient to perform ADL's. OT Education/Plan Problem List/Assessment Assessment: Decreased Activ Tolerance, Decreased UE Strength, Impaired I ADL's , Impaired Self-Care Skills Discharge Recommendations Plan/Recommendations: Continue POC Therapy D/C Recommendations: Home w/ Family Support, Home Independently Equpiment Recommendations-D/C: Bath Chair Treatment Plan/Plan of Care Treatment,Training & Education: Yes Patient would benefit from OT for education, treatment and training to promote independence in ADL's, mobility, safety and/or upper extremity function for ADL' s. Plan of Care: ADL Retraining, Functional Mobility, UE Funct Exercise/Act Treatment Duration: Aug 02, 2016 Agreement: Yes Rehab Potential: Good Time/GCodes Start Time: 14:00 Stop Time: 14:35 Total Time Billed (hr/min): 35 Billed Treatment Time 1, FA x 2 co-treat with PT- please see above CORTNEY ANDRADE OT Jul 26, 2016 17:10
[2016-07-26 18:53] VITALS: BP 128/58
[2016-07-26] MEDS: ATORVASTATIN 40 MG (LIPITOR) TABLET PO SCH (20:53)
[2016-07-27 06:00] VITALS: BP 129/71
[2016-07-27] MEDS: KCL 20 MEQ TAB (K-DUR) PO SCH (06:10)
[2016-07-27] MEDS: FERROUS SULF 325 MG (IRON) TAB PO SCH ×3 (06:10→17:28)
[2016-07-27] MEDS: HYDROcodone/APAP 5 MG/325 MG (LORTAB) TAB PO PRN ×4 (06:10→23:16)
[2016-07-27] MEDS: ASPIRIN 81 MG CHEW (CHILDREN'S ASA) PO SCH (08:12)
[2016-07-27] MEDS: LEVOFLOXACIN 750 MG TAB (LEVAQUIN) PO SCH (08:12)
[2016-07-27] MEDS: DOCUSATE SODIUM 100 MG (COLACE) CAP PO SCH ×2 (08:12→20:35)
[2016-07-27] MEDS: BUMETANIDE 1 MG (BUMEX) TAB PO SCH (08:13)
[2016-07-27] MEDS: meTOproloL SUCCINATE 50 MG (TOPROL XL) TAB PO SCH ×2 (08:13→20:35)
[2016-07-27] MEDS: SIMETHICONE 80 MG (MYLICON) CHEW PO SCH ×4 (08:13→20:35)
[2016-07-27] MEDS: lisINopril 20 MG (ZESTRIL) TAB PO SCH ×2 (08:13→20:35)
[2016-07-27] MEDS: APIXABAN 5 MG (ELIQUIS) TABLET PO SCH ×2 (08:13→20:35)
[2016-07-27] MEDS ORDERED: LEVOFLOXACIN 750 MG TAB (LEVAQUIN) PO SCH (09:00)
--- NOTE | 2016-07-27 10:28 | PM & R (SOAP) Progress Note ---
Subjective Subjective/Events-last exam Patient was seen in her room this AM Feeling better today Patient indicated that she would f/u with her daughter re what med she was prescribed by PCP DR Powell on an outpatient basis for johnny rt knee pain Declined trial of Voltaran gel.Patient SBA for transfers and ambulation with a walker. Review of Systems Musculoskeletal: : other (rt knee pain with WB) Objective Exam Last Set of Vital Signs Vital Signs Date Time Temp Pulse Resp B/P Pulse Ox O2 Delivery O2 Flow Rate FiO2 07/27/16 08:18 Room Air 07/27/16 06:00 98.9 66 16 129/71 93 Capillary Refill : I&O Intake and Output 07/27/16 00:00 Intake Total 1240 ml Balance 1240 ml Intake Oral 1240 ml # Voids 10 General: Alert, Oriented X3, Cooperative, No Acute Distress HEENT: Atraumatic, PERRLA, EOMI, Mucous Memb Moist/[place] Neck: Supple, No JVD Lungs: Clear to Auscultation Heart: Regular Rate Abdomen: Normal Bowel Sounds, Soft, No Tenderness Extremities: No Edema Skin: Other (sternotomy site healing well) Neuro: Other (generalized weakness) Assessment/Plan Assessment General debil s/p Valve replacement OA of knee Postop constipation HTN controlled HLP Plan Continue PT/OT Pain management F/U with Hospitalist prn Team Conference tomorrow HOLLIE RIVERA MD Jul 27, 2016 10:28
--- NOTE | 2016-07-27 10:48 | Progress Note-Hospitalist ---
Progress Note HPI/CC on Admission Pt's main complaint is the back pain and we will start Ultram to see if that helps her since the Lortab causes her to be "loopy. Progress Notes/Assess & Plan Date Seen 07/27/16 Admission Dx/Process status post aortic valve replacement Paroxysmal atrial fibrillation Severe back pain with stability Indigestion CAD Diagonsis/Assessment & Plan network and threat support specialist: RN states that last BM was on the 8th. Pt is taking Lactulose along with pain meds on a scheduled basis. Patient Interview: Pt states that she feels good. Pt was working with PT during visit. Physical exam was stable. AFVSS, [place], in recumbent bike working out RRR, CTAB Trace edema Assessment: s/p aortic valve replacement Paroxysmal atrial fibrillation Severe back pain with debility Indigestion CAD Plan: Continue pain meds on a scheduled basis. lactulose prn Scribed by Daniel Watters under the direct supervision of Dr. Joseph. ERMA JOSEPH DO Jul 27, 2016 10:48
--- NOTE | 2016-07-27 11:00 | Physical Therapy Daily Note ---
PT Daily Note-Current Subjective Patient in bed pre tx, agrees to PT. States she had some pain meds not long ago and is a little woozy. Pain Numeric Pain Scale: 0-No Pain Appearance Patient in bed post tx with nurse call, phone, tray, all needs met. Patient is concerned about bilateral ankle swelling. Nurse notified and patient's legs elevated in bed. Mental Status Patient Orientation: Normal For Age Transfers Functional [place] Measure 0=Not Assessed/NA 4=Minimal Assistance 1=Total Assistance 5=Supervision or Setup 2=Maximal Assistance 6=Modified [place] 3=Moderate Assistance 7=Complete IndependenceIRFPAI Quality Coding Scale 6 Independent with activity with or without an assistive device 5 Patient requires set up or clean up by helper. Patient completes activity by themselves 4 Supervision or touching assist (CGA). [place] provide cues , steadying assist 3 The helper provides less than half the effort to complete the activity 2 The helper provides more than half the effort to complete the activity 1 Dependent. The helper does all the effort to complete an activity 7 Patient refused to complete or attempt activity 9 The patient did not perform the activity before the current illness or injury 88 Not attempted due to Medical conditions or safety concerns Transfers (B, C, W/C) (FIM): 5 Scootin Rollin Supine to/from Sit: 5 Sit to/from Stand: 5 Car Transfer (QC): 4 (standby assist, simulated car transfer) Gait Training Does the Patient Walk?: Yes Gait (FIM): 5 Distance: 250', 150' Gait Level of Assist: 5 Gait Persons Needed: 1 Gait Assistive Device: FWW Patient states she is a little woozy from her pain meds but she did not have any LOB or unsteadiness. Stair Training Stair Training: Handrails/: 2 handrails Stairs (FIM): 2 #of Steps: 8 Stairs: Pattern: Step to Level of Assist: 5 cues for safety and foot placement Exercises NuStep Minutes: 15 NuStep Workload: 5 (patient put her hands on the handles but was instructed not to push with them) Treatments functional strengthening, stair training, gait training, bed mobility and transfers Assessment Current Status: Fair Progress Patient does fatigue fairly quickly and needs rest breaks between activities. PT Short Term Goals Short Term Goals Time Frame: Aug 02, 2016 Transfers (B,C,W/C) (FIM): 5 Gait (FIM): 5 Gait Distance Comment: 300' Gait Level of Assist: 5 Gait Assistive Device: FWW PT Skilled Nursing Goals Electroformer Goals PT Skilled Nursing Goals Time Frame: Aug 16, 2016 Transfers (B,C,W/C) (FIM): 6 Sit to Lying (QC): 6 Lying-Sitting on Side/Bed(QC): 6 Sit to Stand (QC): 6 Rollin Roll Left to Right (QC): 6 Chair/Oqn-wa-Idsqp Xfer(QC): 6 Car Transfer (QC): 4 Does the Patient Walk: Yes Gait (FIM): 6 Distance: 500' Walk 10 feet (QC): 6 Walk 10ft-Uneven Surface(QC): 6 Walk 50ft with 2 Turns (QC): 6 Walk 150 ft (QC): 6 Gait Level of Assist: 6 Gait Assistive Device: FWW Stairs (FIM): 5 # of Steps: 12 1 Step (curb) (QC): 4 4 Steps (QC): 4 12 Steps (QC): 4 Stairs Level Of Assist: 5 Picking up an Object (QC): 5 PT Plan Problem List Problem List: Activity Tolerance, Functional Strength, Safety, Balance, Gait, Transfer, Bed Mobility Treatment/Plan Treatment Plan: Continue Plan of Care Treatment Plan: Bed Mobility, Education, Functional Activity Renetta, Functional Strength, Group Therapy, Gait, Safety, Therapeutic Exercise, Transfers Treatment Duration: Aug 16, 2016 Visits Per Week: 10-11 Minutes/Day (M-F): 60-90 Minutes/Day (Sat/Matute): 15-30 Safety Risks/Education Patient Education: Gait Training, Transfer Techniques, Steps, Safety Issues Teaching Recipient: Patient Teaching Methods: Demonstration, Discussion Response to Teaching: Reinforcement Needed Time/GCodes Time In: 1015 Time Out: 1100 Total Billed Treatment Time: 45 Total Billed Treatment 1 visit GT 30 min EX 15 min JANET KEENE PT Jul 27, 2016 11:00
--- NOTE | 2016-07-27 13:46 | Physical Therapy Daily Note ---
PT Daily Note-Current Subjective Patient in bed pre tx, agrees to PT, states she is still a little woozy from her pain meds, but her pain is much better. Pain Numeric Pain Scale: 0-No Pain Appearance Patient in bed post tx with nurse call, phone, tray, legs elevated, all needs met. Mental Status Patient Orientation: Normal For Age Transfers Functional [place] Measure 0=Not Assessed/NA 4=Minimal Assistance 1=Total Assistance 5=Supervision or Setup 2=Maximal Assistance 6=Modified [place] 3=Moderate Assistance 7=Complete IndependenceIRFPAI Quality Coding Scale 6 Independent with activity with or without an assistive device 5 Patient requires set up or clean up by helper. Patient completes activity by themselves 4 Supervision or touching assist (CGA). [place] provide cues , steadying assist 3 The helper provides less than half the effort to complete the activity 2 The helper provides more than half the effort to complete the activity 1 Dependent. The helper does all the effort to complete an activity 7 Patient refused to complete or attempt activity 9 The patient did not perform the activity before the current illness or injury 88 Not attempted due to Medical conditions or safety concerns Transfers (B, C, W/C) (FIM): 5 Scootin Rollin Supine to/from Sit: 4 (patient needed min assist with getting legs into bed) Sit to/from Stand: 5 cues for safety and hand placement Gait Training Gait (FIM): 5 Distance: 200'x2 Gait Level of Assist: 5 Gait Persons Needed: 1 Gait Assistive Device: FWW very slow Exercises Standing: Hip Abduction, Hamstring curls, Heel/toe raises, Marching, Mini squats Standing Reps: 20 patient had a hard time with exercises and needed a break between each one due to arthritis in right knee Treatments bed mobility and transfers, ambulation, functional strengthening Assessment Current Status: Poor Progress patient needed assist getting legs back into bed this afternoon PT Short Term Goals Short Term Goals Time Frame: Aug 02, 2016 Transfers (B,C,W/C) (FIM): 5 Gait (FIM): 5 Gait Distance Comment: 300' Gait Level of Assist: 5 Gait Assistive Device: FWW PT Longterm Goals Electronic [employer] Engineer Goals PT Longterm Goals Time Frame: Aug 16, 2016 Transfers (B,C,W/C) (FIM): 6 Sit to Lying (QC): 6 Lying-Sitting on Side/Bed(QC): 6 Sit to Stand (QC): 6 Rollin Roll Left to Right (QC): 6 Chair/Ybv-nn-Wpgog Xfer(QC): 6 Car Transfer (QC): 4 Does the Patient Walk: Yes Gait (FIM): 6 Distance: 500' Walk 10 feet (QC): 6 Walk 10ft-Uneven Surface(QC): 6 Walk 50ft with 2 Turns (QC): 6 Walk 150 ft (QC): 6 Gait Level of Assist: 6 Gait Assistive Device: FWW Stairs (FIM): 5 # of Steps: 12 1 Step (curb) (QC): 4 4 Steps (QC): 4 12 Steps (QC): 4 Stairs Level Of Assist: 5 Picking up an Object (QC): 5 PT Plan Problem List Problem List: Activity Tolerance, Functional Strength, Safety, Balance, Gait, Transfer, Bed Mobility Treatment/Plan Treatment Plan: Continue Plan of Care Treatment Plan: Bed Mobility, Education, Functional Activity Renetta, Functional Strength, Group Therapy, Gait, Safety, Therapeutic Exercise, Transfers Treatment Duration: Aug 16, 2016 Visits Per Week: 10-11 Minutes/Day (M-F): 60-90 Minutes/Day (Sat/Mat[place]): 15-30 Safety Risks/Education Patient Education: Gait Training, Transfer Techniques, Safety Issues Teaching Recipient: Patient Teaching Methods: Demonstration, Discussion Response to Teaching: Reinforcement Needed Time/GCodes Time In: 1300 Time Out: 1345 Total Billed Treatment Time: 45 Total Billed Treatment 1 visit GT 30 min EX 15 min JANET KEENE PT Jul 27, 2016 13:46
--- NOTE | 2016-07-27 14:00 | Occupational Ther Daily Note ---
OT Current Status-Daily Note Subjective No pain reported. Appearance Pt. in bed. Declines shower, but does agree to spongebathe. Mental Status/Objective Patient Orientation: Person, Place, Time, Situation Functional [place] Measure 0=Not Assessed/NA 4=Minimal Assistance 1=Total Assistance 5=Supervision or Setup 2=Maximal Assistance 6=Modified [place] 3=Moderate Assistance 7=Complete [place] ADL-Treatment Functional [place] Measure 0=Not Assessed/NA 4=Minimal Assistance 1=Total Assistance 5=Supervision or Setup 2=Maximal Assistance 6=Modified [place] 3=Moderate Assistance 7=Complete IndependenceIRFPAI Quality Coding Scale 6 Independent with activity with or without an assistive device 5 Patient requires set up or clean up by helper. Patient completes activity by themselves 4 Supervision or touching assist (CGA). [place] provide cues , steadying assist 3 The helper provides less than half the effort to complete the activity 2 The helper provides more than half the effort to complete the activity 1 Dependent. The helper does all the effort to complete an activity 7 Patient refused to complete or attempt activity 9 The patient did not perform the activity before the current illness or injury 88 Not attempted due to Medical conditions or safety concerns Grooming (FIM): 5 (SBA at sink to brush teeth and hair.) Oral Hygiene (QC): 4 Toileting Hygiene (QC): 5 (Supervision to toilet self.) Bathing (FIM): 5 (Pt. is able to bathe all parts up in chair by spongebathing.) Lower Body Dressing (FIM): 5 (Set up to don slippers.) On/Off Footwear (QC): 5 Transfers (B, C, W/C) (FIM): 5 (Pt. is able to transfer from supine-sit, sit- stand, and back to supine all with SBA.) Other Treatment After ADLs, pt. ambulated to therapy gym. Tolerated peg activity while wearing 1 lb. wrist weights for light resistive exercise. Pt. then doffed weights, and completed arm arc back and forth to increase overall strength/endurance. Pt. educated to listen to her body, to determine if she was becoming short of breath , weak, etc.... Pt. verbalizes understanding. Tolerated treatment well. Ambulated back to room. All needs met in bed. Tolerated treatment well. Education OT Patient Education: Exercise program, Modified ADL techniques, Progress toward Goal/Update tx plan, Purpose of tx/functional activities, Reviewed precautions, Rehab process, Transfer techniques Teaching Recipient: Patient Teaching Methods: Demonstration, Discussion Response to Teaching: Verbalize Understanding, Return Demonstration OT Short Term Goals Short Term Goals Transfers (B,C,W/C) (FIM): 5 1=Demonstrate adherence to instructed precautions during ADL tasks. 2=Patient will verbalize/demonstrate understanding of assistive devices/ modifications for ADL. 3=Patient will improve strength/tolerance for activity to enable patient to perform ADL's. OT Alf Goals Alf Goals Time Frame: Aug 02, 2016 Eating (FIM): 6 Eating (QC): 6 Oral Hygiene (QC): 6 Grooming(FIM): 6 Bathing(FIM): 6 Shower/Bathe Self (QC): 6 Upper Body Dressing(FIM): 6 Upper Body Dressing (QC): 6 Lower Body Dressing(FIM): 6 Lower Body Dressing (QC): 6 On/Off Footwear (QC): 6 Toileting(FIM): 6 Toileting Hygiene (QC): 6 Transfers (B,C,W/C) (FIM): 6 Toilet/Commode Transfer(FIM): 6 Toilet/Commode Transfer (QC): 6 Shower Transfer(FIM): 6 Additional Goals: 1-Demonstrate ADL Tasks, 2-Verbalize Understanding, 3- ImproveStrength/Renetta 1=Demonstrate adherence to instructed precautions during ADL tasks. 2=Patient will verbalize/demonstrate understanding of assistive devices/ modifications for ADL. 3=Patient will improve strength/tolerance for activity to enable patient to perform ADL's. OT Education/Plan Problem List/Assessment Assessment: Decreased Activ Tolerance, Impaired I ADL's, Impaired Self-Care Skills Discharge Recommendations Plan/Recommendations: Continue POC Therapy D/C Recommendations: Home w/ Family Support, Occupational Therapy Home Care, Scheduled Assistance Target Placement Home with daughter support. Pt. also states she is interested possibly in home health. Will speak to social media intern regarding this. Treatment Plan/Plan of Care Treatment,Training & Education: Yes Patient would benefit from OT for education, treatment and training to promote independence in ADL's, mobility, safety and/or upper extremity function for ADL' s. Plan of Care: ADL Retraining, Functional Mobility, UE Funct Exercise/Act Treatment Duration: Aug 02, 2016 Agreement: Yes Rehab Potential: Good Time/GCodes Start Time: 08:30 Stop Time: 10:00 Total Time Billed (hr/min): 90 Billed Treatment Time 1, ADL x 30minutes, FA x 30minutes, EX x 30minutes CORTNEY ANDRADE OT Jul 27, 2016 13:59
--- NOTE | 2016-07-27 16:20 | Individualized Plan of Care ---
Individualized Plan of Care Rehab Nursing IPOC Order Admission Date Jul 25, 2016 at 15:25 Current Orders Orders-HOLLIE RIVERA MD Influenza Vac Order Indicated (07/25/16 16:45) Influenza Trivalent [id number] ([place] ( (07/26/16 07:15) Consult Physician (07/26/16 07:58) Patient Visit (07/26/16 ) Speech Sound Lang Comp (07/26/16 ) Nursing Communication (Pt.Care (07/26/16 14:44) Patient Visit (07/26/16 ) Pt Eval Low Complexity (07/26/16 ) Functional Activities, Ea 15 (07/26/16 ) Gait Training, Ea 15 Min (07/26/16 ) Ex Neuromuscular, Ea 15 Min (07/26/16 ) Patient Visit (07/27/16 ) Gait Training, Ea 15 Min (07/27/16 ) Exercise Therap, Ea 15 Min (07/27/16 ) Patient Visit (07/27/16 ) Gait Training, Ea 15 Min (07/27/16 ) Exercise Therap, Ea 15 Min (07/27/16 ) PT IPOC Problem List: Activity Tolerance, Functional Strength, Safety, Balance, Gait, Transfer, Bed Mobility Treatment Plan: Continue Plan of Care Bed Mobility, Education, Functional Activity Renetta, Functional Strength, Group Therapy, Gait, Safety, Therapeutic Exercise, Transfers Treatment Duration: Aug 16, 2016 Visits Per Week: 10-11 Minutes/Day (M-F): 60-90 Minutes/Day (Sat/Matute): 15-30 OT IPOC Problems: Decreased Activ Tolerance, Impaired I ADL's, Impaired Self-Care Skills Plan of Care: ADL Retraining, Functional Mobility, UE Funct Exercise/Act Treatment Duration: Aug 02, 2016 Visits Per Week: 10-11 Minutes/Day (M-F): 60-90 Minutes/Day (Sat/Matute): 15-30 ST IPOC Speech Therapy Treatment Plan: Discontinue ST (Eval, only.) Physician IPOC Medical Issues being managed closely and that require the 24 hour availability of a physician:Arthritic back and rt knee pain ongoing wound care Medical Issues: Bowel/Bladder Function, DVT Prophylaxis, Falls Precautions, Fluid/Electrolyte/Nutrition Balance, Infection Protection, Pain Management, Weight Bearing Precautions, Wound Care, Other (List) (as per above) Brief Synthesis of Preadmission Screen, Post-Admission Evaluation, and Therapy Evaluations: 81 yo female who had been Independent and living in [facility] who required a Valvular Heart procedure at OSH in [place] Postop has general debilitation.Also c/o back and rt knee pain Has Lortab and tramadol for pain management Also has post op constipation and meds adjusted. Medical Prognosis: good Anticipated Length of Stay: 2 weeks Rehab Goals Modified Independent for adls and mobility skills with good wound healing Anticipated discharge destinat: Home with family and [facility] HOLLIE RIVERA MD Jul 27, 2016 16:20
[2016-07-27 18:17] VITALS: BP 146/74
[2016-07-27] MEDS: ATORVASTATIN 40 MG (LIPITOR) TABLET PO SCH (20:35)
[2016-07-28 06:00] VITALS: BP 139/68
[2016-07-28] MEDS: FERROUS SULF 325 MG (IRON) TAB PO SCH ×3 (06:00→17:33)
[2016-07-28] MEDS: HYDROcodone/APAP 5 MG/325 MG (LORTAB) TAB PO PRN ×3 (06:01→23:36)
[2016-07-28] MEDS: KCL 20 MEQ TAB (K-DUR) PO SCH (06:01)
[2016-07-28 06:07] LABS: BASOPHILS % (AUTO) 0 % (0-10); EOSINOPHILS # (AUTO) 0.5 10^3/uL (0.0-0.3); EOSINOPHILS % (AUTO) 4 % (0-10); LYMPHOCYTES % (AUTO) 16 % (12-44); MEAN CORPUSCULAR HEMOGLOBIN 30 PG (25-34); MEAN CORPUSCULAR HGB CONC 32 G/DL (32-36); MEAN CORPUSCULAR VOLUME 92 FL (80-99); MEAN PLATELET VOLUME 9.8 FL (7.4-10.4); MONOCYTES # (AUTO) 1.2 X 10^3 (0.0-1.0); MONOCYTES % (AUTO) 9 % (0-12); NEUTROPHILS # (AUTO) 8.9 X 10^3 (1.8-7.8); NEUTROPHILS % (AUTO) 71 % (42-75); PLATELET COUNT 496 10^3/uL (130-400); RED BLOOD COUNT 2.88 10^6/uL (4.35-5.85); RED CELL DISTRIBUTION WIDTH 15.1 % (10.0-14.5); WHITE BLOOD COUNT 12.5 10^3/uL (4.3-11.0)
[2016-07-28] MEDS: meTOproloL SUCCINATE 50 MG (TOPROL XL) TAB PO SCH ×2 (08:17→20:57)
[2016-07-28] MEDS: ASPIRIN 81 MG CHEW (CHILDREN'S ASA) PO SCH (08:17)
[2016-07-28] MEDS: lisINopril 20 MG (ZESTRIL) TAB PO SCH ×2 (08:17→20:57)
[2016-07-28] MEDS: BUMETANIDE 1 MG (BUMEX) TAB PO SCH (08:17)
[2016-07-28] MEDS: APIXABAN 5 MG (ELIQUIS) TABLET PO SCH ×2 (08:17→20:57)
[2016-07-28] MEDS: DOCUSATE SODIUM 100 MG (COLACE) CAP PO SCH ×2 (08:17→20:57)
[2016-07-28] MEDS: SIMETHICONE 80 MG (MYLICON) CHEW PO SCH ×4 (08:17→20:57)
--- NOTE | 2016-07-28 11:04 | Physical Therapy Daily Note ---
PT Daily Note-Current Subjective Patient in recliner pre tx, agrees to PT but states she is very tired and is not sure how much she will be able to do. Apparently she did not sleep well last night. Pain Numeric Pain Scale: 0-No Pain Appearance Patient in recliner post tx with nurse call, phone, tray, legs elevated, all needs met. Nursing notified that patient will trying going to the bathroom by herself from now on, but only if she uses a rolling walker. Mental Status Patient Orientation: Normal For Age Transfers Functional [place] Measure 0=Not Assessed/NA 4=Minimal Assistance 1=Total Assistance 5=Supervision or Setup 2=Maximal Assistance 6=Modified [place] 3=Moderate Assistance 7=Complete IndependenceIRFPAI Quality Coding Scale 6 Independent with activity with or without an assistive device 5 Patient requires set up or clean up by helper. Patient completes activity by themselves 4 Supervision or touching assist (CGA). [place] provide cues , steadying assist 3 The helper provides less than half the effort to complete the activity 2 The helper provides more than half the effort to complete the activity 1 Dependent. The helper does all the effort to complete an activity 7 Patient refused to complete or attempt activity 9 The patient did not perform the activity before the current illness or injury 88 Not attempted due to Medical conditions or safety concerns Transfers (B, C, W/C) (FIM): 6 Sit to/from Stand: 6 no LOB or instability, appropriate use of hands Gait Training Gait (FIM): 6 Distance: 300'x2, 100'x2 Gait Assistive Device: FWW Patient had to use the rest room during therapy so she ambulated back to the room and was toileted and then ambulated back to the therapy gym. Exercises NuStep Minutes: 15 NuStep Workload: 5 Treatments ambulation, transfers, functional strengthening (patient only rested her hands on the handles of the stepper in order to comply with her chest precautions) Assessment Current Status: Fair Progress improved balance, strength, and mobility. Patient did move slowly this morning and needed extra rest breaks because she was so tired. PT Short Term Goals Short Term Goals Time Frame: Aug 02, 2016 Transfers (B,C,W/C) (FIM): 5 Gait (FIM): 5 Gait Distance Comment: 300' Gait Level of Assist: 5 Gait Assistive Device: FWW PT Care Home Goals Care Home Goals PT Ticket Attendant Goals Time Frame: Aug 16, 2016 Transfers (B,C,W/C) (FIM): 6 Sit to Lying (QC): 6 Lying-Sitting on Side/Bed(QC): 6 Sit to Stand (QC): 6 Rollin Roll Left to Right (QC): 6 Chair/Eya-ya-Loffm Xfer(QC): 6 Car Transfer (QC): 4 Does the Patient Walk: Yes Gait (FIM): 6 Distance: 500' Walk 10 feet (QC): 6 Walk 10ft-Uneven Surface(QC): 6 Walk 50ft with 2 Turns (QC): 6 Walk 150 ft (QC): 6 Gait Level of Assist: 6 Gait Assistive Device: FWW Stairs (FIM): 5 # of Steps: 12 1 Step (curb) (QC): 4 4 Steps (QC): 4 12 Steps (QC): 4 Stairs Level Of Assist: 5 Picking up an Object (QC): 5 PT Plan Problem List Problem List: Activity Tolerance, Functional Strength, Safety, Balance, Gait, Transfer Treatment/Plan Treatment Plan: Continue Plan of Care Treatment Plan: Bed Mobility, Education, Functional Activity Renetta, Functional Strength, Group Therapy, Gait, Safety, Therapeutic Exercise, Transfers Treatment Duration: Aug 16, 2016 Visits Per Week: 10-11 Minutes/Day (M-F): 60-90 Minutes/Day (Sat/Matute): 15-30 Safety Risks/Education Patient Education: Gait Training, Transfer Techniques, Safety Issues Teaching Recipient: Patient Teaching Methods: Demonstration, Discussion Response to Teaching: Reinforcement Needed Time/GCodes Time In: 1000 Time Out: 1100 Total Billed Treatment Time: 60 Total Billed Treatment 1 visit GT 35 min FA 10 min EX 15 min JANET KEENE PT Jul 28, 2016 11:04
--- NOTE | 2016-07-28 11:42 | PM & R (SOAP) Progress Note ---
Subjective Subjective/Events-last exam Patient was seen in her room Progressing well with therapies Patient Modified Independent for Transfers Objective Exam Last Set of Vital Signs Vital Signs Date Time Temp Pulse Resp B/P Pulse Ox O2 Delivery O2 Flow Rate FiO2 07/28/16 08:48 Room Air 07/28/16 06:00 98.8 59 20 139/68 93 Capillary Refill : I&O Intake and Output 07/28/16 00:00 Intake Total 750 ml Balance 750 ml Intake Oral 750 ml # Voids 6 General: Alert, Oriented X3, Cooperative, No Acute Distress HEENT: Atraumatic, PERRLA, EOMI, Mucous Memb Moist/[place] Neck: Supple, No JVD Lungs: Clear to Auscultation Heart: Regular Rate Abdomen: Normal Bowel Sounds, Soft, No Tenderness Extremities: No Edema Skin: Other (sternotomy site healing well) Neuro: Other (generalized weakness) Results Lab Laboratory Tests 07/28/16 05:46: Basophils # (Auto) 0.0, Basophils (%) (Auto) 0, Eosinophils # (Auto) 0.5H, Eosinophils (%) (Auto) 4, Hematocrit 27L, Hemoglobin 8.5L, Lymphocytes # (Auto) 2.0, Lymphocytes (%) (Auto) 16, Mean Corpuscular Hemoglobin 30, Mean Corpuscular Hemoglobin Concent 32, Mean Corpuscular Volume 92, Mean Platelet Volume 9.8, Monocytes # (Auto) 1.2H, Monocytes (%) (Auto) 9, Neutrophils # (Auto ) 8.9H, Neutrophils (%) (Auto) 71, Platelet Count 496H, Red Blood Count 2.88L, Red Cell Distribution Width 15.1H, White Blood Count 12.5H Assessment/Plan Assessment General debil s/p Valve replacement OA of knee Postop constipation HTN controlled HLP Plan Continue PT/OT Pain management F/U with Hospitalist prn Team Conference later today -See report for full functional update and POC and HOLLIE FLORES MD Jul 28, 2016 11:42
--- NOTE | 2016-07-28 14:25 | Occupational Ther Daily Note ---
OT Current Status-Daily Note Subjective Pt alert, sitting in recliner. Pt stated that she was too tired to do any therapy. OT encouraged pt to participate. Pt agreed to therapy, completed in room. Mental Status/Objective Patient Orientation: Person, Place, Time, Situation Functional [place] Measure 0=Not Assessed/NA 4=Minimal Assistance 1=Total Assistance 5=Supervision or Setup 2=Maximal Assistance 6=Modified [place] 3=Moderate Assistance 7=Complete [place] ADL-Treatment With 1# wt attached to wrists pt was able to hold bowl of soup and use spoon to scoop and feed self without difficulty. Then pt completed pegs with 1# wt attached to wrists to promote hand/UE strength and finger dexterity. After therapy, pt sitting in chair with call light/phone in reach. All needs met in room. Functional [place] Measure 0=Not Assessed/NA 4=Minimal Assistance 1=Total Assistance 5=Supervision or Setup 2=Maximal Assistance 6=Modified [place] 3=Moderate Assistance 7=Complete IndependenceIRFPAI Quality Coding Scale 6 Independent with activity with or without an assistive device 5 Patient requires set up or clean up by helper. Patient completes activity by themselves 4 Supervision or touching assist (CGA). [place] provide cues , steadying assist 3 The helper provides less than half the effort to complete the activity 2 The helper provides more than half the effort to complete the activity 1 Dependent. The helper does all the effort to complete an activity 7 Patient refused to complete or attempt activity 9 The patient did not perform the activity before the current illness or injury 88 Not attempted due to Medical conditions or safety concerns Eating (FIM): 6 OT Short Term Goals Short Term Goals Transfers (B,C,W/C) (FIM): 5 (met-07/24/16) 1=Demonstrate adherence to instructed precautions during ADL tasks. 2=Patient will verbalize/demonstrate understanding of assistive devices/ modifications for ADL. 3=Patient will improve strength/tolerance for activity to enable patient to perform ADL's. OT Jail Goals Jail Goals Time Frame: Aug 02, 2016 Eating (FIM): 6 (met-07/24/16) Eating (QC): 6 (met-07/24/16) Oral Hygiene (QC): 6 (met-07/24/16) Grooming(FIM): 6 (met-07/24/16) Bathing(FIM): 6 Shower/Bathe Self (QC): 6 Upper Body Dressing(FIM): 6 Upper Body Dressing (QC): 6 Lower Body Dressing(FIM): 6 Lower Body Dressing (QC): 6 On/Off Footwear (QC): 6 Toileting(FIM): 6 (met-07/24/16) Toileting Hygiene (QC): 6 Transfers (B,C,W/C) (FIM): 6 Toilet/Commode Transfer(FIM): 6 Toilet/Commode Transfer (QC): 6 Shower Transfer(FIM): 6 Additional Goals: 1-Demonstrate ADL Tasks, 2-Verbalize Understanding, 3- ImproveStrength/[place] 1=Demonstrate adherence to instructed precautions during ADL tasks. 2=Patient will verbalize/demonstrate understanding of assistive devices/ modifications for ADL. 3=Patient will improve strength/tolerance for activity to enable patient to perform ADL's. OT Education/Plan Discharge Recommendations Plan/Recommendations: Continue POC Treatment Plan/Plan of Care Patient would benefit from OT for education, treatment and training to promote independence in ADL's, mobility, safety and/or upper extremity function for ADL' s. Plan of Care: ADL Retraining, Functional Mobility, UE Funct Exercise/Act Treatment Duration: Aug 02, 2016 Visits Per Week: 10-11 Minutes/Day (M-F): 60-90 Minutes/Day (Sat/Matute): 15-30 Agreement: Yes Rehab Potential: Good Time/GCodes Start Time: 13:00 Stop Time: 13:30 Total Time Billed (hr/min): 30 Billed Treatment Time 1 visit-FA 1 (15 min) EX 1 (15 min) ERASMO SIMMONS Jul 28, 2016 14:25
--- NOTE | 2016-07-28 14:29 | Occupational Ther Daily Note ---
OT Current Status-Daily Note Subjective Pt alert, sitting in recliner. Pt c/o indigestion all night and wasn't able to sleep so she couldn't do much with therapy today. OT encouraged pt to wash up for the day that it would help her feel better. Pt agreed. Mental Status/Objective Patient Orientation: Person, Place, Time, Situation Functional [place] Measure 0=Not Assessed/NA 4=Minimal Assistance 1=Total Assistance 5=Supervision or Setup 2=Maximal Assistance 6=Modified [place] 3=Moderate Assistance 7=Complete [place] ADL-Treatment Pt completed sponge bath standing at sink with supervision. Pt does not have clothing at this time, daughter to bring some. Expressed concern over swelling of feet. Grooming standing at sink with supervision. Took increased time to complete bathing. OT assisted pt with shampooing only hair in shower. Functional [place] Measure 0=Not Assessed/NA 4=Minimal Assistance 1=Total Assistance 5=Supervision or Setup 2=Maximal Assistance 6=Modified [place] 3=Moderate Assistance 7=Complete IndependenceIRFPAI Quality Coding Scale 6 Independent with activity with or without an assistive device 5 Patient requires set up or clean up by helper. Patient completes activity by themselves 4 Supervision or touching assist (CGA). [place] provide cues , steadying assist 3 The helper provides less than half the effort to complete the activity 2 The helper provides more than half the effort to complete the activity 1 Dependent. The helper does all the effort to complete an activity 7 Patient refused to complete or attempt activity 9 The patient did not perform the activity before the current illness or injury 88 Not attempted due to Medical conditions or safety concerns Grooming (FIM): 5 Bathing (FIM): 5 Bathing Location: L Arm, R Arm, L Upper Leg, R Upper Leg, L Lower Leg ( including foot), R Lower Leg (including foot), Chest, Abdomen, Buttocks, Perineal Area Transfers (B, C, W/C) (FIM): 5 (Using FWW pt is SBA) Toilet/Commode Transfer (FIM): 5 (Using FWW and grabbars, pt is SBA) Other Treatment Pt then completed UE exercises with dowel celine and resistive clothes pins. Pt demonstrated good ROM and tolerated all exercises well. After therapy, pt reclined in recliner with pillow under legs. Call light/phone in reach. All needs met in room. OT Short Term Goals Short Term Goals Transfers (B,C,W/C) (FIM): 5 (met-07/24/16) 1=Demonstrate adherence to instructed precautions during ADL tasks. 2=Patient will verbalize/demonstrate understanding of assistive devices/ modifications for ADL. 3=Patient will improve strength/tolerance for activity to enable patient to perform ADL's. OT Detention Goals [place] Goals Time Frame: Aug 02, 2016 Eating (FIM): 6 (met-07/24/16) Eating (QC): 6 (met-07/24/16) Oral Hygiene (QC): 6 (met-07/24/16) Grooming(FIM): 6 (met-07/24/16) Bathing(FIM): 6 Shower/Bathe Self (QC): 6 Upper Body Dressing(FIM): 6 Upper Body Dressing (QC): 6 Lower Body Dressing(FIM): 6 Lower Body Dressing (QC): 6 On/Off Footwear (QC): 6 Toileting(FIM): 6 (met-07/24/16) Toileting Hygiene (QC): 6 Transfers (B,C,W/C) (FIM): 6 Toilet/Commode Transfer(FIM): 6 Toilet/Commode Transfer (QC): 6 Shower Transfer(FIM): 6 Additional Goals: 1-Demonstrate ADL Tasks, 2-Verbalize Understanding, 3- ImproveStrength/Renetta 1=Demonstrate adherence to instructed precautions during ADL tasks. 2=Patient will verbalize/demonstrate understanding of assistive devices/ modifications for ADL. 3=Patient will improve strength/tolerance for activity to enable patient to perform ADL's. OT Education/Plan Discharge Recommendations Plan/Recommendations: Continue POC Treatment Plan/Plan of Care Patient would benefit from OT for education, treatment and training to promote independence in ADL's, mobility, safety and/or upper extremity function for ADL' s. Plan of Care: ADL Retraining, Functional Mobility, UE Funct Exercise/Act Treatment Duration: Aug 02, 2016 Visits Per Week: 10-11 Minutes/Day (M-F): 60-90 Minutes/Day (Sat/[place]): 15-30 Agreement: Yes Rehab Potential: Good Time/GCodes Start Time: 08:00 Stop Time: 09:00 Total Time Billed (hr/min): 60 Billed Treatment Time 1 visit-ADL 3 (45 min) EX 1 (15 min) ERASMO SIMMONS Jul 28, 2016 14:29
--- NOTE | 2016-07-28 16:05 | Physical Therapy Daily Note ---
PT Daily Note-Current Subjective Patient in recliner pre tx, agrees to PT. No complaints and no pain. Appearance Patient in recliner post tx with nurse call, phone, tray, all needs met. Mental Status Patient Orientation: Normal For Age Transfers Functional [place] Measure 0=Not Assessed/NA 4=Minimal Assistance 1=Total Assistance 5=Supervision or Setup 2=Maximal Assistance 6=Modified [place] 3=Moderate Assistance 7=Complete IndependenceIRFPAI Quality Coding Scale 6 Independent with activity with or without an assistive device 5 Patient requires set up or clean up by helper. Patient completes activity by themselves 4 Supervision or touching assist (CGA). [place] provide cues , steadying assist 3 The helper provides less than half the effort to complete the activity 2 The helper provides more than half the effort to complete the activity 1 Dependent. The helper does all the effort to complete an activity 7 Patient refused to complete or attempt activity 9 The patient did not perform the activity before the current illness or injury 88 Not attempted due to Medical conditions or safety concerns Transfers (B, C, W/C) (FIM): 6 Scootin Rollin Supine to/from Sit: 4 Sit to/from Stand: 6 patient needs min assist to get her legs into bed Gait Training Does the Patient Walk?: Yes Gait (FIM): 6 Distance: 500', 150' Gait Assistive Device: FWW no LOB, she did have to take a couple of short standing rest breaks with the longer walk Exercises Supine Ex: Ankle pumps, Quad Set, Glut sets, Heel Slides Supine Reps: 20 Treatments bed mobility and transfers, ambulation, functional strengthening Assessment Current Status: Fair Progress good progress, but patient did not like how she felt lying down on the therapy mat, she could not really explain how she felt PT Short Term Goals Short Term Goals Time Frame: Aug 02, 2016 Transfers (B,C,W/C) (FIM): 5 (met-07/24/16) Gait (FIM): 5 Gait Distance Comment: 300' Gait Level of Assist: 5 Gait Assistive Device: FWW PT Care Home Goals Care Home Goals PT Law Instructor Goals Time Frame: Aug 16, 2016 Transfers (B,C,W/C) (FIM): 6 Sit to Lying (QC): 6 Lying-Sitting on Side/Bed(QC): 6 Sit to Stand (QC): 6 Rollin Roll Left to Right (QC): 6 Chair/Ams-em-Qzasw Xfer(QC): 6 Car Transfer (QC): 4 Does the Patient Walk: Yes Gait (FIM): 6 Distance: 500' Walk 10 feet (QC): 6 Walk 10ft-Uneven Surface(QC): 6 Walk 50ft with 2 Turns (QC): 6 Walk 150 ft (QC): 6 Gait Level of Assist: 6 Gait Assistive Device: FWW Stairs (FIM): 5 # of Steps: 12 1 Step (curb) (QC): 4 4 Steps (QC): 4 12 Steps (QC): 4 Stairs Level Of Assist: 5 Picking up an Object (QC): 5 PT Plan Problem List Problem List: Activity Tolerance, Functional Strength, Safety, Balance, Gait, Transfer Treatment/Plan Treatment Plan: Continue Plan of Care Treatment Plan: Bed Mobility, Education, Functional Activity Renetta, Functional Strength, Group Therapy, Gait, Safety, Therapeutic Exercise, Transfers Treatment Duration: Aug 16, 2016 Visits Per Week: 10-11 Minutes/Day (M-F): 60-90 Minutes/Day (Sat/[place]): 15-30 Safety Risks/Education Patient Education: Gait Training, Transfer Techniques, Safety Issues Teaching Recipient: Patient Teaching Methods: Demonstration, Discussion Response to Teaching: Reinforcement Needed Time/GCodes Time In: 1525 Time Out: 1655 Total Billed Treatment Time: 30 Total Billed Treatment 1 visit GT 20 min EX 10 min JANET KEENE PT Jul 28, 2016 16:05
[2016-07-28 17:52] VITALS: BP 144/68
[2016-07-28] MEDS: ATORVASTATIN 40 MG (LIPITOR) TABLET PO SCH (20:57)
[2016-07-29 06:00] VITALS: BP 161/77
[2016-07-29] MEDS: FERROUS SULF 325 MG (IRON) TAB PO SCH ×3 (06:12→17:10)
[2016-07-29] MEDS: KCL 20 MEQ TAB (K-DUR) PO SCH (06:12)
[2016-07-29] MEDS: HYDROcodone/APAP 5 MG/325 MG (LORTAB) TAB PO PRN ×2 (06:49→19:02)
[2016-07-29] MEDS: SIMETHICONE 80 MG (MYLICON) CHEW PO SCH ×4 (09:01→20:39)
[2016-07-29] MEDS: BUMETANIDE 1 MG (BUMEX) TAB PO SCH (09:01)
[2016-07-29] MEDS: APIXABAN 5 MG (ELIQUIS) TABLET PO SCH ×2 (09:01→20:40)
[2016-07-29] MEDS: DOCUSATE SODIUM 100 MG (COLACE) CAP PO SCH ×2 (09:01→20:41)
[2016-07-29] MEDS: meTOproloL SUCCINATE 50 MG (TOPROL XL) TAB PO SCH ×2 (09:01→20:40)
[2016-07-29] MEDS: ASPIRIN 81 MG CHEW (CHILDREN'S ASA) PO SCH (09:01)
[2016-07-29] MEDS: lisINopril 20 MG (ZESTRIL) TAB PO SCH ×2 (09:01→20:40)
[2016-07-29] MEDS: LEVOFLOXACIN 750 MG TAB (LEVAQUIN) PO SCH (09:13)
--- NOTE | 2016-07-29 09:17 | PM & R (SOAP) Progress Note ---
Subjective Subjective/Events-last exam Patient was seen in her room this AM Progressing well with therapies Patient min assist for transfers Pain control adequate Objective Exam Last Set of Vital Signs Vital Signs Date Time Temp Pulse Resp B/P Pulse Ox O2 Delivery O2 Flow Rate FiO2 07/29/16 06:00 100.0 65 18 161/77 93 Room Air Capillary Refill : I&O Intake and Output 07/29/16 00:00 Intake Total 1400 ml Balance 1400 ml Intake Oral 1400 ml # Voids 8 # Bowel Movements 1 General: Alert, Oriented X3, Cooperative, No Acute Distress HEENT: Atraumatic, PERRLA, EOMI, Mucous Memb Moist/[place] Neck: Supple, No JVD Lungs: Clear to Auscultation Heart: Regular Rate Abdomen: Normal Bowel Sounds, Soft, No Tenderness Extremities: No Edema Skin: Other (sternotomy site healing well) Neuro: Other (generalized weakness) Results Lab Laboratory Tests 07/28/16 05:46: Basophils # (Auto) 0.0, Basophils (%) (Auto) 0, Eosinophils # (Auto) 0.5H, Eosinophils (%) (Auto) 4, Hematocrit 27L, Hemoglobin 8.5L, Lymphocytes # (Auto) 2.0, Lymphocytes (%) (Auto) 16, Mean Corpuscular Hemoglobin 30, Mean Corpuscular Hemoglobin Concent 32, Mean Corpuscular Volume 92, Mean Platelet Volume 9.8, Monocytes # (Auto) 1.2H, Monocytes (%) (Auto) 9, Neutrophils # (Auto ) 8.9H, Neutrophils (%) (Auto) 71, Platelet Count 496H, Red Blood Count 2.88L, Red Cell Distribution Width 15.1H, White Blood Count 12.5H Assessment/Plan Assessment General debil s/p Valve replacement OA of knee Postop constipation HTN controlled HLP Plan Continue PT/OT Pain management F/U with Hospitalist prn Team Conference held yesterday -See report for full functional update and POC and HOLLIE FLORES MD Jul 29, 2016 09:17
--- NOTE | 2016-07-29 10:01 | Physical Therapy Daily Note ---
PT Daily Note-Current Subjective Patient sitting EOB pre tx, agrees to PT, but she has to use the restroom. She states she has some minor low back pain 08/27. Appearance Patient in room post tx with walker, she is mod I in her room when using the rolling walker. Mental Status Patient Orientation: Normal For Age Transfers Functional [place] Measure 0=Not Assessed/NA 4=Minimal Assistance 1=Total Assistance 5=Supervision or Setup 2=Maximal Assistance 6=Modified [place] 3=Moderate Assistance 7=Complete IndependenceIRFPAI Quality Coding Scale 6 Independent with activity with or without an assistive device 5 Patient requires set up or clean up by helper. Patient completes activity by themselves 4 Supervision or touching assist (CGA). [place] provide cues , steadying assist 3 The helper provides less than half the effort to complete the activity 2 The helper provides more than half the effort to complete the activity 1 Dependent. The helper does all the effort to complete an activity 7 Patient refused to complete or attempt activity 9 The patient did not perform the activity before the current illness or injury 88 Not attempted due to Medical conditions or safety concerns Transfers (B, C, W/C) (FIM): 6 Sit to/from Stand: 6 Gait Training Gait (FIM): 6 Distance: 600'x2 Gait Assistive Device: FWW Patient ambulated a little slower than normal she says due to back pain and her arthritis in her knee has been acting up because of the change in weather. Stair Training Stair Training: Handrails/: 2 handrails Stairs (FIM): 5 #of Steps: 12 Stairs: Pattern: Step to Level of Assist: 5 Exercises Patient put her hands on the handles of the stepper but just rested them there, she did not push or pull with them. NuStep Minutes: 15 NuStep Workload: 5 Treatments transfers, ambulation, functional strengthening, stair training, patient was toileted once Assessment Current Status: Fair Progress improving endurance PT Short Term Goals Short Term Goals Time Frame: Aug 02, 2016 Transfers (B,C,W/C) (FIM): 5 (met-07/24/16) Gait (FIM): 5 Gait Distance Comment: 300' Gait Level of Assist: 5 Gait Assistive Device: FWW PT Clinical Pharmacologist Goals Clinical Pharmacologist Goals PT Clinical Pharmacologist Goals Time Frame: Aug 16, 2016 Transfers (B,C,W/C) (FIM): 6 Sit to Lying (QC): 6 Lying-Sitting on Side/Bed(QC): 6 Sit to Stand (QC): 6 Rollin Roll Left to Right (QC): 6 Chair/Loe-ij-Sxlpb Xfer(QC): 6 Car Transfer (QC): 4 Does the Patient Walk: Yes Gait (FIM): 6 Distance: 500' Walk 10 feet (QC): 6 Walk 10ft-Uneven Surface(QC): 6 Walk 50ft with 2 Turns (QC): 6 Walk 150 ft (QC): 6 Gait Level of Assist: 6 Gait Assistive Device: FWW Stairs (FIM): 5 # of Steps: 12 1 Step (curb) (QC): 4 4 Steps (QC): 4 12 Steps (QC): 4 Stairs Level Of Assist: 5 Picking up an Object (QC): 5 PT Plan Problem List Problem List: Activity Tolerance, Functional Strength, Safety, Balance, Gait, Transfer Treatment/Plan Treatment Plan: Continue Plan of Care Treatment Plan: Bed Mobility, Education, Functional Activity Renetta, Functional Strength, Group Therapy, Gait, Safety, Therapeutic Exercise, Transfers Treatment Duration: Aug 16, 2016 Visits Per Week: 10-11 Minutes/Day (M-F): 60-90 Minutes/Day (Sat/[place]): 15-30 Safety Risks/Education Patient Education: Gait Training, Transfer Techniques, Steps, Safety Issues Teaching Recipient: Patient Teaching Methods: Demonstration, Discussion Response to Teaching: Reinforcement Needed Time/GCodes Time In: 900 Time Out: 1000 Total Billed Treatment Time: 60 Total Billed Treatment 1 visit FA 15 min EX 15 min GT 30 min JANET KEENE PT Jul 29, 2016 10:01
--- NOTE | 2016-07-29 13:02 | Occupational Ther Daily Note ---
OT Current Status-Daily Note Subjective No pain reported. Appearance Pt. sitting up in bed and wearing clean pajamas. Requests to stay as she is. Declines showering, spongebathing, or ambulating around the hospital. Does agree to come to therapy gym and complete bilateral UE exercises. Mental Status/Objective Patient Orientation: Person, Place, Time, Situation Functional [place] Measure 0=Not Assessed/NA 4=Minimal Assistance 1=Total Assistance 5=Supervision or Setup 2=Maximal Assistance 6=Modified [place] 3=Moderate Assistance 7=Complete [place] ADL-Treatment Functional [place] Measure 0=Not Assessed/NA 4=Minimal Assistance 1=Total Assistance 5=Supervision or Setup 2=Maximal Assistance 6=Modified [place] 3=Moderate Assistance 7=Complete IndependenceIRFPAI Quality Coding Scale 6 Independent with activity with or without an assistive device 5 Patient requires set up or clean up by helper. Patient completes activity by themselves 4 Supervision or touching assist (CGA). [place] provide cues , steadying assist 3 The helper provides less than half the effort to complete the activity 2 The helper provides more than half the effort to complete the activity 1 Dependent. The helper does all the effort to complete an activity 7 Patient refused to complete or attempt activity 9 The patient did not perform the activity before the current illness or injury 88 Not attempted due to Medical conditions or safety concerns Transfers (B, C, W/C) (FIM): 6 (Pt. is able to use her walker and ambulate independently with this equipment.) Other Treatment Pt. ambulated to therapy gym with mod I. Completed series of UE strengthening and fine motor strengthening tasks. Tolerated 15 minutes on armbike at min resistance. Then tolerated nut/bolt activity, and arm arc activity to increase overall ROM/strength. Tolerated with frequent rest breaks. All needs met back in room. Education OT Patient Education: Exercise program, Modified ADL techniques, Progress toward Goal/Update tx plan, Purpose of tx/functional activities, Reviewed precautions, Transfer techniques Teaching Recipient: Patient Teaching Methods: Demonstration, Discussion Response to Teaching: Verbalize Understanding, Return Demonstration OT Short Term Goals Short Term Goals Transfers (B,C,W/C) (FIM): 5 (met-07/24/16) 1=Demonstrate adherence to instructed precautions during ADL tasks. 2=Patient will verbalize/demonstrate understanding of assistive devices/ modifications for ADL. 3=Patient will improve strength/tolerance for activity to enable patient to perform ADL's. OT Penitentiary Goals Penitentiary Goals Time Frame: Aug 02, 2016 Eating (FIM): 6 (met-07/24/16) Eating (QC): 6 (met-07/24/16) Oral Hygiene (QC): 6 (met-07/24/16) Grooming(FIM): 6 (met-07/24/16) Bathing(FIM): 6 Shower/Bathe Self (QC): 6 Upper Body Dressing(FIM): 6 Upper Body Dressing (QC): 6 Lower Body Dressing(FIM): 6 Lower Body Dressing (QC): 6 On/Off Footwear (QC): 6 Toileting(FIM): 6 (met-07/24/16) Toileting Hygiene (QC): 6 Transfers (B,C,W/C) (FIM): 6 Toilet/Commode Transfer(FIM): 6 Toilet/Commode Transfer (QC): 6 Shower Transfer(FIM): 6 Additional Goals: 1-Demonstrate ADL Tasks, 2-Verbalize Understanding, 3- ImproveStrength/Renetta 1=Demonstrate adherence to instructed precautions during ADL tasks. 2=Patient will verbalize/demonstrate understanding of assistive devices/ modifications for ADL. 3=Patient will improve strength/tolerance for activity to enable patient to perform ADL's. OT Education/Plan Problem List/Assessment Assessment: Decreased Activ Tolerance, Impaired I ADL's, Impaired Self-Care Skills Discharge Recommendations Plan/Recommendations: Continue POC Therapy D/C Recommendations: Home w/ Family Support Treatment Plan/Plan of Care Treatment,Training & Education: Yes Patient would benefit from OT for education, treatment and training to promote independence in ADL's, mobility, safety and/or upper extremity function for ADL' s. Plan of Care: ADL Retraining, Functional Mobility, UE Funct Exercise/Act Treatment Duration: Aug 02, 2016 Visits Per Week: 10-11 Minutes/Day (M-F): 60-90 Minutes/Day (Sat/[place]): 15-30 Agreement: Yes Rehab Potential: Good Time/GCodes Start Time: 10:30 Stop Time: 11:30 Total Time Billed (hr/min): 60 Billed Treatment Time 1, EX x 30minutes, FA x 30minutes CORTNEY ANDRADE OT Jul 29, 2016 13:02
--- NOTE | 2016-07-29 14:07 | Occupational Ther Daily Note ---
OT Current Status-Daily Note Subjective No pain reported. Appearance Pt. up in chair. Agrees to occupational therapy. Mental Status/Objective Patient Orientation: Person, Place, Time, Situation Functional [place] Measure 0=Not Assessed/NA 4=Minimal Assistance 1=Total Assistance 5=Supervision or Setup 2=Maximal Assistance 6=Modified [place] 3=Moderate Assistance 7=Complete [place] ADL-Treatment Functional [place] Measure 0=Not Assessed/NA 4=Minimal Assistance 1=Total Assistance 5=Supervision or Setup 2=Maximal Assistance 6=Modified [place] 3=Moderate Assistance 7=Complete IndependenceIRFPAI Quality Coding Scale 6 Independent with activity with or without an assistive device 5 Patient requires set up or clean up by helper. Patient completes activity by themselves 4 Supervision or touching assist (CGA). [place] provide cues , steadying assist 3 The helper provides less than half the effort to complete the activity 2 The helper provides more than half the effort to complete the activity 1 Dependent. The helper does all the effort to complete an activity 7 Patient refused to complete or attempt activity 9 The patient did not perform the activity before the current illness or injury 88 Not attempted due to Medical conditions or safety concerns Transfers (B, C, W/C) (FIM): 6 Other Treatment Pt. agrees to treatment. Ambulated with Mod I to kitchen. Practiced retrieving items from high cabinets, low cabinets, and refridgerator with no difficulty. Pt. tolerated this well. Spoke with pt in depth regarding how she does her laundry, and her plan for home. Pt. states that she takes the wet clothing out, and hangs on a spinning frame changer immediately. States that she doesn't have dirty clothing very often, and thinks she will not have any trouble doing it a piece at a time. Pt. educated to not carry a heavy clothing basket to and from her bedroom. Verbalizes understanding of this. Went to therapy gym. Tolerated 2 sets x 15 reps each x 3 exercises in all planes with yellow theraband. Completed this to increase overall strength. Ambulated back to room. Education OT Patient Education: Exercise program, Progress toward Goal/Update tx plan, Purpose of tx/functional activities, Reviewed precautions, Rehab process, Transfer techniques Teaching Recipient: Patient Teaching Methods: Demonstration, Discussion Response to Teaching: Verbalize Understanding, Return Demonstration OT Short Term Goals Short Term Goals Transfers (B,C,W/C) (FIM): 5 (met-1/7/17) 1=Demonstrate adherence to instructed precautions during ADL tasks. 2=Patient will verbalize/demonstrate understanding of assistive devices/ modifications for ADL. 3=Patient will improve strength/tolerance for activity to enable patient to perform ADL's. OT Shelter Goals Neuropsychiatrist Goals Time Frame: Aug 02, 2016 Eating (FIM): 6 (met-07/24/16) Eating (QC): 6 (met-07/24/16) Oral Hygiene (QC): 6 (met-07/24/16) Grooming(FIM): 6 (met-07/24/16) Bathing(FIM): 6 Shower/Bathe Self (QC): 6 Upper Body Dressing(FIM): 6 Upper Body Dressing (QC): 6 Lower Body Dressing(FIM): 6 Lower Body Dressing (QC): 6 On/Off Footwear (QC): 6 Toileting(FIM): 6 (met-07/24/16) Toileting Hygiene (QC): 6 Transfers (B,C,W/C) (FIM): 6 Toilet/Commode Transfer(FIM): 6 Toilet/Commode Transfer (QC): 6 Shower Transfer(FIM): 6 Additional Goals: 1-Demonstrate ADL Tasks, 2-Verbalize Understanding, 3- ImproveStrength/[place] 1=Demonstrate adherence to instructed precautions during ADL tasks. 2=Patient will verbalize/demonstrate understanding of assistive devices/ modifications for ADL. 3=Patient will improve strength/tolerance for activity to enable patient to perform ADL's. OT Education/Plan Problem List/Assessment Assessment: Decreased Activ Tolerance Discharge Recommendations Plan/Recommendations: Continue POC Therapy D/C Recommendations: Home Independently Target Placement Home with daughter assisting as needed. Treatment Plan/Plan of Care Treatment,Training & Education: Yes Patient would benefit from OT for education, treatment and training to promote independence in ADL's, mobility, safety and/or upper extremity function for ADL' s. Plan of Care: ADL Retraining, Functional Mobility, UE Funct Exercise/Act Treatment Duration: Aug 02, 2016 Visits Per Week: 10-11 Minutes/Day (M-F): 60-90 Minutes/Day (Sat/[place]): 15-30 Agreement: Yes Rehab Potential: Good Time/GCodes Start Time: 13:00 Stop Time: 13:30 Total Time Billed (hr/min): 30 Billed Treatment Time 1, EX x 2 CORTNEY ANDRADE OT Jul 29, 2016 14:07
--- NOTE | 2016-07-29 14:27 | Physical Therapy Daily Note ---
PT Daily Note-Current Subjective Patient agrees to PT. No c/o at this time. Pain Numeric Pain Scale: 0-No Pain Location: No Pain Reported Mental Status Patient Orientation: Normal For Age Transfers Functional [place] Measure 0=Not Assessed/NA 4=Minimal Assistance 1=Total Assistance 5=Supervision or Setup 2=Maximal Assistance 6=Modified [place] 3=Moderate Assistance 7=Complete IndependenceIRFPAI Quality Coding Scale 6 Independent with activity with or without an assistive device 5 Patient requires set up or clean up by helper. Patient completes activity by themselves 4 Supervision or touching assist (CGA). [place] provide cues , steadying assist 3 The helper provides less than half the effort to complete the activity 2 The helper provides more than half the effort to complete the activity 1 Dependent. The helper does all the effort to complete an activity 7 Patient refused to complete or attempt activity 9 The patient did not perform the activity before the current illness or injury 88 Not attempted due to Medical conditions or safety concerns Transfers (B, C, W/C) (FIM): 7 Scootin Sit to/from Stand: 7 Gait Training Does the Patient Walk?: Yes Gait (FIM): 6 Distance (FIM): 3=150 ft Distance: 400' x 1; 150' x 1 Gait Level of Assist: 6 Gait Assistive Device: FWW safe and functional with FWW Exercises NuStep Minutes: 15 NuStep Workload: 5 Assessment Patient tolerated treatment and PT reeducated patient on being up ad kobe in room and to be aware of her environment for safety. PT Short Term Goals Short Term Goals Time Frame: Aug 02, 2016 Transfers (B,C,W/C) (FIM): 5 (met-07/24/16) Gait (FIM): 5 Gait Distance Comment: 300' Gait Level of Assist: 5 Gait Assistive Device: FWW PT Dust Collector Goals Dust Collector Goals PT Senior Care Goals Time Frame: Aug 16, 2016 Transfers (B,C,W/C) (FIM): 6 Sit to Lying (QC): 6 Lying-Sitting on Side/Bed(QC): 6 Sit to Stand (QC): 6 Rollin Roll Left to Right (QC): 6 Chair/Awz-ic-Rrsdx Xfer(QC): 6 Car Transfer (QC): 4 Does the Patient Walk: Yes Gait (FIM): 6 Distance: 500' Walk 10 feet (QC): 6 Walk 10ft-Uneven Surface(QC): 6 Walk 50ft with 2 Turns (QC): 6 Walk 150 ft (QC): 6 Gait Level of Assist: 6 Gait Assistive Device: FWW Stairs (FIM): 5 # of Steps: 12 1 Step (curb) (QC): 4 4 Steps (QC): 4 12 Steps (QC): 4 Stairs Level Of Assist: 5 Picking up an Object (QC): 5 PT Plan Treatment/Plan Treatment Plan: Continue Plan of Care Treatment Plan: Bed Mobility, Education, Functional Activity Renetta, Functional Strength, Group Therapy, Gait, Safety, Therapeutic Exercise, Transfers Treatment Duration: Aug 16, 2016 Visits Per Week: 10-11 Minutes/Day (M-F): 60-90 Minutes/Day (Sat/Matute): 15-30 Time/GCodes Time In: 1350 Time Out: 1420 Total Billed Treatment Time: 30 Total Billed Treatment 1 visit GT 15 min EX 15 min ALESHIA FRASER PT Jul 29, 2016 14:27
[2016-07-29 18:50] VITALS: BP 150/85
[2016-07-29] MEDS: ATORVASTATIN 40 MG (LIPITOR) TABLET PO SCH (20:39)
[2016-07-30] MEDS: HYDROcodone/APAP 5 MG/325 MG (LORTAB) TAB PO PRN (04:35)
[2016-07-30 05:48] VITALS: BP 167/87
[2016-07-30] MEDS: KCL 20 MEQ TAB (K-DUR) PO SCH (05:59)
[2016-07-30] MEDS: FERROUS SULF 325 MG (IRON) TAB PO SCH ×3 (05:59→16:58)
[2016-07-30 09:00] VITALS: BP 143/82
--- NOTE | 2016-07-30 09:02 | Physical Therapy Daily Note ---
PT Daily Note-Current Subjective Patient in bed pre tx, agrees to PT, pleasant and cooperative. Pain Numeric Pain Scale: 0-No Pain Appearance Patient in bathroom post tx, she is independent in her room. Mental Status Patient Orientation: Normal For Age Transfers Functional [place] Measure 0=Not Assessed/NA 4=Minimal Assistance 1=Total Assistance 5=Supervision or Setup 2=Maximal Assistance 6=Modified [place] 3=Moderate Assistance 7=Complete IndependenceIRFPAI Quality Coding Scale 6 Independent with activity with or without an assistive device 5 Patient requires set up or clean up by helper. Patient completes activity by themselves 4 Supervision or touching assist (CGA). [place] provide cues , steadying assist 3 The helper provides less than half the effort to complete the activity 2 The helper provides more than half the effort to complete the activity 1 Dependent. The helper does all the effort to complete an activity 7 Patient refused to complete or attempt activity 9 The patient did not perform the activity before the current illness or injury 88 Not attempted due to Medical conditions or safety concerns Transfers (B, C, W/C) (FIM): 6 Scootin Rollin Supine to/from Sit: 6 Sit to/from Stand: 6 Gait Training Gait (FIM): 6 Distance: 600', 300' Gait Assistive Device: FWW Patient does not want to try walking without her walker at this time, she states she is just not comfortable with it. Stair Training Stair Training: Handrails/: 2 handrails Stairs (FIM): 6 #of Steps: 12 Stairs: Pattern: Step to Exercises Standing: Hip Abduction, Hamstring curls, Heel/toe raises, Marching, Mini squats Standing Reps: 20 NuStep Minutes: 15 NuStep Workload: 1 Treatments functional strengthening, stair training, gait training, transfers Assessment Current Status: Fair Progress patient is mod I with mobility PT Short Term Goals Short Term Goals Time Frame: Aug 02, 2016 Transfers (B,C,W/C) (FIM): 5 (met-07/24/16) Gait (FIM): 5 Gait Distance Comment: 300' Gait Level of Assist: 5 Gait Assistive Device: FWW PT Half-Way Goals Radiator Fitter Goals PT Half-Way Goals Time Frame: Aug 16, 2016 Transfers (B,C,W/C) (FIM): 6 Sit to Lying (QC): 6 Lying-Sitting on Side/Bed(QC): 6 Sit to Stand (QC): 6 Rollin Roll Left to Right (QC): 6 Chair/Tis-go-Kpkpr Xfer(QC): 6 Car Transfer (QC): 4 Does the Patient Walk: Yes Gait (FIM): 6 Distance: 500' Walk 10 feet (QC): 6 Walk 10ft-Uneven Surface(QC): 6 Walk 50ft with 2 Turns (QC): 6 Walk 150 ft (QC): 6 Gait Level of Assist: 6 Gait Assistive Device: FWW Stairs (FIM): 5 # of Steps: 12 1 Step (curb) (QC): 4 4 Steps (QC): 4 12 Steps (QC): 4 Stairs Level Of Assist: 5 Picking up an Object (QC): 5 PT Plan Problem List Problem List: Activity Tolerance, Functional Strength, Safety, Balance, Gait, Transfer Treatment/Plan Treatment Plan: Continue Plan of Care Treatment Plan: Bed Mobility, Education, Functional Activity Renetta, Functional Strength, Group Therapy, Gait, Safety, Therapeutic Exercise, Transfers Treatment Duration: Aug 16, 2016 Visits Per Week: 10-11 Minutes/Day (M-F): 60-90 Minutes/Day (Sat/Matute): 15-30 Safety Risks/Education Patient Education: Gait Training, Transfer Techniques, Steps, Safety Issues Teaching Recipient: Patient Teaching Methods: Demonstration, Discussion Response to Teaching: Reinforcement Needed Time/GCodes Time In: 800 Time Out: 900 Total Billed Treatment Time: 60 Total Billed Treatment 1 visit EX 30 min GT 30 min JANET KEENE PT Jul 30, 2016 09:02
--- NOTE | 2016-07-30 09:10 | PM & R (SOAP) Progress Note ---
Subjective Subjective/Events-last exam Patient was seen in her room this AM Discussed case with RN Patient spiked a fever to >100 degrees last night Patient denies cough or dysuria and doing well with therapies Patient Modified Independent for transfersSternomomy site healing well Chest tube sites below sternotomy site dressed Objective Exam Last Set of Vital Signs Vital Signs Date Time Temp Pulse Resp B/P Pulse Ox O2 Delivery O2 Flow Rate FiO2 07/30/16 05:48 98.7 86 18 167/87 93 Room Air Capillary Refill : I&O Intake and Output 07/30/16 00:00 Intake Total 850 ml Balance 850 ml Intake Oral 850 ml # Voids 7 # Bowel Movements 1 General: Alert, Oriented X3, Cooperative, No Acute Distress HEENT: Atraumatic, PERRLA, EOMI, Mucous Memb Moist/[place]: Supple, No JVD Lungs: Clear to Auscultation Heart: Regular Rate Abdomen: Normal Bowel Sounds, Soft, No Tenderness Extremities: No Edema Skin: Other ( as per above) Neuro: Other (good strength) Results Lab Laboratory Tests 07/28/16 05:46: Basophils # (Auto) 0.0, Basophils (%) (Auto) 0, Eosinophils # (Auto) 0.5H, Eosinophils (%) (Auto) 4, Hematocrit 27L, Hemoglobin 8.5L, Lymphocytes # (Auto) 2.0, Lymphocytes (%) (Auto) 16, Mean Corpuscular Hemoglobin 30, Mean Corpuscular Hemoglobin Concent 32, Mean Corpuscular Volume 92, Mean Platelet Volume 9.8, Monocytes # (Auto) 1.2H, Monocytes (%) (Auto) 9, Neutrophils # (Auto ) 8.9H, Neutrophils (%) (Auto) 71, Platelet Count 496H, Red Blood Count 2.88L, Red Cell Distribution Width 15.1H, White Blood Count 12.5H Assessment/Plan Assessment General debil s/p Valve replacement OA of knee Postop constipation-improved HTN controlled HLP Postop fever-Labs and CXR ordered Will ask Hospitalist to review See orders Plan Continue PT/OT Pain management F/U with Hospitalist re postop fever Check labs and CXR as per above Team Conference held 07-28-16-See report for full functional update and POC and HOLLIE FLORES MD Jul 30, 2016 09:10
[2016-07-30] MEDS: SIMETHICONE 80 MG (MYLICON) CHEW PO SCH ×4 (09:41→20:37)
[2016-07-30] MEDS: DOCUSATE SODIUM 100 MG (COLACE) CAP PO SCH ×2 (09:41→20:37)
[2016-07-30] MEDS: ASPIRIN 81 MG CHEW (CHILDREN'S ASA) PO SCH (09:41)
[2016-07-30] MEDS: APIXABAN 5 MG (ELIQUIS) TABLET PO SCH ×2 (09:41→20:37)
[2016-07-30] MEDS: meTOproloL SUCCINATE 50 MG (TOPROL XL) TAB PO SCH ×2 (09:41→20:37)
[2016-07-30] MEDS: BUMETANIDE 1 MG (BUMEX) TAB PO SCH (09:41)
[2016-07-30] MEDS: lisINopril 20 MG (ZESTRIL) TAB PO SCH ×2 (09:41→20:37)
[2016-07-30 10:20] LABS: BASOPHILS % (AUTO) 0 % (0-10); EOSINOPHILS # (AUTO) 0.3 10^3/uL (0.0-0.3); EOSINOPHILS % (AUTO) 4 % (0-10); LYMPHOCYTES # (AUTO) 1.5 X 10^3 (1.0-4.0); LYMPHOCYTES % (AUTO) 16 % (12-44); MEAN CORPUSCULAR HEMOGLOBIN 30 PG (25-34); MEAN CORPUSCULAR HGB CONC 33 G/DL (32-36); MEAN CORPUSCULAR VOLUME 91 FL (80-99); MEAN PLATELET VOLUME 9.4 FL (7.4-10.4); MONOCYTES # (AUTO) 1.1 X 10^3 (0.0-1.0); MONOCYTES % (AUTO) 12 % (0-12); NEUTROPHILS # (AUTO) 6.2 X 10^3 (1.8-7.8); NEUTROPHILS % (AUTO) 68 % (42-75); PLATELET COUNT 467 10^3/uL (130-400); RED BLOOD COUNT 2.84 10^6/uL (4.35-5.85); WHITE BLOOD COUNT 9.2 10^3/uL (4.3-11.0)
[2016-07-30 10:52] LABS: ALANINE AMINOTRANSFERASE 34 U/L (0-55); ANION GAP 8 MMOL/L (5-14); ASPARTATE AMINO TRANSFERASE 49 U/L (5-34); BILIRUBIN,TOTAL 0.8 MG/DL (0.1-1.0); BLOOD UREA NITROGEN 12 MG/DL (7-18); BUN/CREATININE RATIO 15; CALCIUM 8.6 MG/DL (8.5-10.1); CARBON DIOXIDE 22 MMOL/L (21-32); CHLORIDE 101 MMOL/L (98-107); CREATININE SERUM 0.81 MG/DL (0.60-1.30); GFR ESTIMATED > 60; GLUCOSE 96 MG/DL (70-105); POTASSIUM 4.3 MMOL/L (3.6-5.0); SODIUM 131 MMOL/L (135-145)
--- NOTE | 2016-07-30 10:54 | Progress Note-Hospitalist ---
Progress Note HPI/CC on Admission Pt's main complaint is the back pain and we will start Ultram to see if that helps her since the Lortab causes her to be "loopy. Progress Notes/Assess & Plan Date Seen 07/30/16 Admission Dx/Process status post aortic valve replacement Paroxysmal atrial fibrillation Severe back pain with stability Indigestion CAD Diagonsis/Assessment & Plan Patient running a little low-grade fever the last couple of days and Levaquin had been initiated on 07/27/16 and obtaining chest x-ray today since white count is normal and lungs were clear I will address them. Antibiotics but will follow up on chest x-ray final report before that is discontinued. Order nebulizer treatments twice a day and incentive spirometer Edema continues and lower extremities and I will consult cardiology to evaluate since valve replacement was complicated with atrial fibrillation on amiodarone and maintained on Eliquis Bowels are moving and otherwise having no pain after receiving pain medication AFVSS, Pleasant, O x 3 RRR, CTAB no rales noted 1+ edema Assessment: s/p aortic valve replacement Paroxysmal atrial fibrillation Severe back pain with debility Indigestion CAD Edema Low grade fever and mild elevation in wbc Plan: Continue pain meds on a scheduled basis. lactulose prn Check CXR Abx since 07/27/16? Cardiology evaluation ERMA MONTGOMERY DO Jul 30, 2016 10:54
--- NOTE | 2016-07-30 10:59 | Occupational Ther Daily Note ---
OT Current Status-Daily Note Subjective Pt alert, lying in bed. Pt c/o stomach pain, stated she had a BM earlier in am. Pt agreed to therapy. Mental Status/Objective Patient Orientation: Person, Place, Time, Situation Functional [place] Measure 0=Not Assessed/NA 4=Minimal Assistance 1=Total Assistance 5=Supervision or Setup 2=Maximal Assistance 6=Modified [place] 3=Moderate Assistance 7=Complete [place] ADL-Treatment Functional [place] Measure 0=Not Assessed/NA 4=Minimal Assistance 1=Total Assistance 5=Supervision or Setup 2=Maximal Assistance 6=Modified [place] 3=Moderate Assistance 7=Complete IndependenceIRFPAI Quality Coding Scale 6 Independent with activity with or without an assistive device 5 Patient requires set up or clean up by helper. Patient completes activity by themselves 4 Supervision or touching assist (CGA). [place] provide cues , steadying assist 3 The helper provides less than half the effort to complete the activity 2 The helper provides more than half the effort to complete the activity 1 Dependent. The helper does all the effort to complete an activity 7 Patient refused to complete or attempt activity 9 The patient did not perform the activity before the current illness or injury 88 Not attempted due to Medical conditions or safety concerns Grooming (FIM): 6 (Standing at sink with chair available, pt completed grooming by self.) Bathing (FIM): 6 (Standing at sink with chair available, pt completed bathing by self.) Bathing Location: L Arm, R Arm, L Upper Leg, R Upper Leg, L Lower Leg ( including foot), R Lower Leg (including foot), Chest, Abdomen, Buttocks, Perineal Area Upper Body (FIM): 5 (After set up, pt is able to complete dressing.) Lower Body Dressing (FIM): 5 (After set up, pt is able to complete dressing.) Transfers (B, C, W/C) (FIM): 6 (Using FWW, pt is able to transfer.) Other Treatment Pt ambulated back to sit EOB with FWW. Pt took increased time to complete resistive clothespin task to promote hand strength and dexterity. After therapy , pt lying in bed with call light/phone in reach. All needs met in room. OT Short Term Goals Short Term Goals Transfers (B,C,W/C) (FIM): 5 (met-07/24/16) 1=Demonstrate adherence to instructed precautions during ADL tasks. 2=Patient will verbalize/demonstrate understanding of assistive devices/ modifications for ADL. 3=Patient will improve strength/tolerance for activity to enable patient to perform ADL's. OT Alf Goals Team Lead Goals Time Frame: Aug 02, 2016 Eating (FIM): 6 (met-07/24/16) Eating (QC): 6 (met-07/24/16) Oral Hygiene (QC): 6 (met-07/24/16) Grooming(FIM): 6 (met-07/24/16) Bathing(FIM): 6 Shower/Bathe Self (QC): 6 Upper Body Dressing(FIM): 6 Upper Body Dressing (QC): 6 Lower Body Dressing(FIM): 6 Lower Body Dressing (QC): 6 On/Off Footwear (QC): 6 Toileting(FIM): 6 (met-07/24/16) Toileting Hygiene (QC): 6 Transfers (B,C,W/C) (FIM): 6 Toilet/Commode Transfer(FIM): 6 Toilet/Commode Transfer (QC): 6 Shower Transfer(FIM): 6 Additional Goals: 1-Demonstrate ADL Tasks, 2-Verbalize Understanding, 3- ImproveStrength/Renetta 1=Demonstrate adherence to instructed precautions during ADL tasks. 2=Patient will verbalize/demonstrate understanding of assistive devices/ modifications for ADL. 3=Patient will improve strength/tolerance for activity to enable patient to perform ADL's. OT Education/Plan Discharge Recommendations Plan/Recommendations: Continue POC Treatment Plan/Plan of Care Patient would benefit from OT for education, treatment and training to promote independence in ADL's, mobility, safety and/or upper extremity function for ADL' s. Plan of Care: ADL Retraining, Functional Mobility, UE Funct Exercise/Act Treatment Duration: Aug 02, 2016 Visits Per Week: 10-11 Minutes/Day (M-F): 60-90 Minutes/Day (Sat/Matute): 15-30 Agreement: Yes Rehab Potential: Good Time/GCodes Start Time: 10:00 Stop Time: 11:00 Total Time Billed (hr/min): 60 Billed Treatment Time 1 visit-ADL 3 (45 min) EX 1 (15 min) ERASMO SIMMONS Jul 30, 2016 10:58
--- NOTE | 2016-07-30 13:50 | Physical Therapy Daily Note ---
PT Daily Note-Current Subjective Pt. in bed. Pt. had attended group for only 30 minutes between 12p and 1230p and requested to go to her room to the bathroom and after refused to return to group cursing and stating she is "not a ------- baby". As this MACHINIST SET UP entered the room the pt. stated "I am not walking or getting out of this bed" This MACHINIST SET UP suggested supine therex and then also explained the importance of walking and activity to stay on course for recovery. Pt. agreed Transfers Functional [place] Measure 0=Not Assessed/NA 4=Minimal Assistance 1=Total Assistance 5=Supervision or Setup 2=Maximal Assistance 6=Modified [place] 3=Moderate Assistance 7=Complete IndependenceIRFPAI Quality Coding Scale 6 Independent with activity with or without an assistive device 5 Patient requires set up or clean up by helper. Patient completes activity by themselves 4 Supervision or touching assist (CGA). [place] provide cues , steadying assist 3 The helper provides less than half the effort to complete the activity 2 The helper provides more than half the effort to complete the activity 1 Dependent. The helper does all the effort to complete an activity 7 Patient refused to complete or attempt activity 9 The patient did not perform the activity before the current illness or injury 88 Not attempted due to Medical conditions or safety concerns sup to sit x 2 as pt. c/o she needed to sit up on the side of the bed to bel. and she did successfully many times. Exercises Supine Ex: Bridging, Ankle pumps, Quad Set, Rolling, Glut sets, Heel Slides, Short Arc Quads, Scooting, Hip abd/add Supine Reps: 15 Seated Therapy Exercises: Ankle pumps, Long arc quads Seated Reps: 15 Assessment Current Status: Good Progress pt. noted to have pitting edema bilateral feet and lower legs PT Short Term Goals Short Term Goals Time Frame: Aug 02, 2016 Transfers (B,C,W/C) (FIM): 5 (met-07/24/16) Gait (FIM): 5 Gait Distance Comment: 300' Gait Level of Assist: 5 Gait Assistive Device: FWW PT Boat Washer Goals Mcc Goals PT Mcc Goals Time Frame: Aug 16, 2016 Transfers (B,C,W/C) (FIM): 6 Sit to Lying (QC): 6 Lying-Sitting on Side/Bed(QC): 6 Sit to Stand (QC): 6 Rollin Roll Left to Right (QC): 6 Chair/Eiw-tj-Jkeie Xfer(QC): 6 Car Transfer (QC): 4 Does the Patient Walk: Yes Gait (FIM): 6 Distance: 500' Walk 10 feet (QC): 6 Walk 10ft-Uneven Surface(QC): 6 Walk 50ft with 2 Turns (QC): 6 Walk 150 ft (QC): 6 Gait Level of Assist: 6 Gait Assistive Device: FWW Stairs (FIM): 5 # of Steps: 12 1 Step (curb) (QC): 4 4 Steps (QC): 4 12 Steps (QC): 4 Stairs Level Of Assist: 5 Picking up an Object (QC): 5 PT Plan Treatment/Plan Treatment Plan: Continue Plan of Care Treatment Plan: Bed Mobility, Education, Functional Activity Renetta, Functional Strength, Group Therapy, Gait, Safety, Therapeutic Exercise, Transfers Treatment Duration: Aug 16, 2016 Visits Per Week: 10-11 Minutes/Day (M-F): 60-90 Minutes/Day (Sat/Matute): 15-30 Safety Risks/Education Patient Education: Issued Written HEP, Disease Process (discussed the definite need for walking and upright activity) Teaching Recipient: Patient Teaching Methods: Demonstration, Discussion Response to Teaching: Verbalize Understanding, Return Demonstration Time/GCodes Time In: 1310 Time Out: 1340 Total Billed Treatment Time: 30 Total Billed Treatment 1,EX30m G Codes Necessary: ARIS Tovar MACHINIST SET UP Jul 30, 2016 13:50
--- NOTE | 2016-07-30 14:50 | Therapy Group Daily Note ---
Therapy Daily Group Note Patient Education Topic Home Safety Exercises Fine Motor, UE Exercise Other/Notes Pt required encouragement to participate in OT/PT lunch group. Pt did come to lunch group and demonstrated ability to set self up for lunch. Pt fed self lunch with regular utensils. Pt then excused self from group insisting she had go to the bathroom then refused to come back to group. Nrsg took pt to bathroom and laid her down in bed. Start Time: 12:00 Stop Time: 12:30 Total Billed Treatment Time: 30 Total Billed Treatment 1-GRP ERASMO SIMMONS Jul 30, 2016 14:50
--- NOTE | 2016-07-30 14:55 | Diagnostic Imaging Report ---
Exam: PA and lateral views of the chest. Indication: Postoperative fever. Comparison: 07/13/16. Findings: There has been an interval cardiac valve replacement and sternotomy wires are seen. There is a moderate-sized left pleural effusion with left lower lobe atelectasis and consolidation. The heart size is enlarged. There is pulmonary vascular congestion. A small right pleural effusion is also present. No pneumothorax. Impression: Moderate left pleural effusion with left lower lobe atelectasis and infiltrates. There is also background mild vascular congestion and small right pleural effusion. Dictated by: Dictated on workstation # [id number]
[2016-07-30 15:30] LABS: BILIRUBIN,URINE NEGATIVE (NEGATIVE); KETONES,URINE NEGATIVE (NEGATIVE); LEUKOCYTE ESTERASE ,URINE NEGATIVE (NEGATIVE); NITRITE,URINE NEGATIVE (NEGATIVE); PH,URINE 7 (5-9); PROTEIN,URINE NEGATIVE (NEGATIVE); UROBILINOGEN,URINE NORMAL (NORMAL)
[2016-07-30 15:40] LABS: SQUAMOUS EPITHELIAL CELL,UR RARE /HPF
[2016-07-30] MEDS: RT-ALBUTEROL SULF 2.5 MG/3 ML PRE-MIX VIAL INH SCH ×2 (15:48→21:40)
[2016-07-30 18:30] VITALS: BP 138/73
[2016-07-30] MEDS: ATORVASTATIN 40 MG (LIPITOR) TABLET PO SCH (20:37)
[2016-07-31] MEDS: HYDROcodone/APAP 5 MG/325 MG (LORTAB) TAB PO PRN ×2 (00:19→15:55)
[2016-07-31 06:00] VITALS: BP 163/75
[2016-07-31] MEDS: KCL 20 MEQ TAB (K-DUR) PO SCH (07:29)
[2016-07-31] MEDS: FERROUS SULF 325 MG (IRON) TAB PO SCH ×3 (07:29→16:46)
[2016-07-31] MEDS: RT-ALBUTEROL SULF 2.5 MG/3 ML PRE-MIX VIAL INH SCH ×2 (07:42→19:22)
[2016-07-31] MEDS: SIMETHICONE 80 MG (MYLICON) CHEW PO SCH ×4 (08:35→20:54)
[2016-07-31] MEDS: DOCUSATE SODIUM 100 MG (COLACE) CAP PO SCH ×2 (08:36→20:55)
[2016-07-31] MEDS: ASPIRIN 81 MG CHEW (CHILDREN'S ASA) PO SCH (08:36)
[2016-07-31] MEDS: LEVOFLOXACIN 750 MG TAB (LEVAQUIN) PO SCH (08:36)
[2016-07-31] MEDS: lisINopril 20 MG (ZESTRIL) TAB PO SCH ×2 (08:36→20:55)
[2016-07-31] MEDS: APIXABAN 5 MG (ELIQUIS) TABLET PO SCH ×2 (08:36→20:54)
[2016-07-31] MEDS: BUMETANIDE 1 MG (BUMEX) TAB PO SCH ×3 (08:36→15:54)
[2016-07-31] MEDS: meTOproloL SUCCINATE 50 MG (TOPROL XL) TAB PO SCH ×2 (08:40→20:55)
[2016-07-31 09:00] VITALS: BP 147/76
--- NOTE | 2016-07-31 10:51 | Physical Therapy Daily Note ---
PT Daily Note-Current Subjective Pt. agrees to Rx. States she slept very well, very pleased Pain Numeric Pain Scale: 0-No Pain Mental Status Patient Orientation: Normal For Age Transfers Functional [place] Measure 0=Not Assessed/NA 4=Minimal Assistance 1=Total Assistance 5=Supervision or Setup 2=Maximal Assistance 6=Modified [place] 3=Moderate Assistance 7=Complete IndependenceIRFPAI Quality Coding Scale 6 Independent with activity with or without an assistive device 5 Patient requires set up or clean up by helper. Patient completes activity by themselves 4 Supervision or touching assist (CGA). [place] provide cues , steadying assist 3 The helper provides less than half the effort to complete the activity 2 The helper provides more than half the effort to complete the activity 1 Dependent. The helper does all the effort to complete an activity 7 Patient refused to complete or attempt activity 9 The patient did not perform the activity before the current illness or injury 88 Not attempted due to Medical conditions or safety concerns Transfers (B, C, W/C) (FIM): 6 Scootin Rollin Supine to/from Sit: 6 Sit to/from Stand: 6 Bed to/from Chair: 6 Gait Training Does the Patient Walk?: Yes Gait (FIM): 6 Distance (FIM): 3=150 ft (250x2) Gait Level of Assist: 6 Gait Persons Needed: 0 Gait Assistive Device: FWW pt. possibly up ad kobe status soon Exercises Seated Therapy Exercises: Ankle pumps, Sit to stand, Long arc quads, Hip flexion Seated Reps: 10 Assessment Current Status: Good Progress PT Short Term Goals Short Term Goals Time Frame: Aug 02, 2016 Transfers (B,C,W/C) (FIM): 5 (met-07/24/16) Gait (FIM): 5 Gait Distance Comment: 300' Gait Level of Assist: 5 Gait Assistive Device: FWW PT It Network Architect Goals It Network Architect Goals PT It Network Architect Goals Time Frame: Aug 16, 2016 Transfers (B,C,W/C) (FIM): 6 Sit to Lying (QC): 6 Lying-Sitting on Side/Bed(QC): 6 Sit to Stand (QC): 6 Rollin Roll Left to Right (QC): 6 Chair/Fer-bu-Hmpda Xfer(QC): 6 Car Transfer (QC): 4 Does the Patient Walk: Yes Gait (FIM): 6 Distance: 500' Walk 10 feet (QC): 6 Walk 10ft-Uneven Surface(QC): 6 Walk 50ft with 2 Turns (QC): 6 Walk 150 ft (QC): 6 Gait Level of Assist: 6 Gait Assistive Device: FWW Stairs (FIM): 5 # of Steps: 12 1 Step (curb) (QC): 4 4 Steps (QC): 4 12 Steps (QC): 4 Stairs Level Of Assist: 5 Picking up an Object (QC): 5 PT Plan Treatment/Plan Treatment Plan: Continue Plan of Care Treatment Plan: Bed Mobility, Education, Functional Activity Renetta, Functional Strength, Group Therapy, Gait, Safety, Therapeutic Exercise, Transfers Treatment Duration: Aug 16, 2016 Visits Per Week: 10-11 Minutes/Day (M-F): 60-90 Minutes/Day (Sat/Matute): 15-30 Safety Risks/Education Patient Education: Gait Training, Transfer Techniques Teaching Recipient: Patient Teaching Methods: Demonstration, Discussion Response to Teaching: Verbalize Understanding, Return Demonstration, Reinforcement Needed Time/GCodes Time In: 750 Time Out: 810 Total Billed Treatment Time: 20 Total Billed Treatment 1,GT20m G Codes Necessary: ARIS Tovar [employer]IVER Jul 31, 2016 10:51
[2016-07-31] MEDS ORDERED: BUMETANIDE 1 MG/4 ML (BUMEX) VIAL IV NR (11:00)
--- NOTE | 2016-07-31 12:04 | Consultation-Cardiology ---
HPI-Cardiology Cardiology Consultation: Date of Consultation 07/31/16 Date of Admission Attending Physician Chidi Lawrence MD Admitting Physician Dawn Powell MD Consulting Physician Quinn LINN MD HPI: Chief Complaint: status post cardiac surgery this is a pleasant 81-year-old lady with history of shortness of breath and was found to be in acute diastolic heart failure. Echocardiogram showed severe aortic stenosis. Coronary angiography revealed mild to moderate coronary disease. She was transferred to [facility] for aortic valve replacement. She was transferred back for cardiac rehabilitation and has been doing well. She denies any chest pain or shortness of breath. She does have some lower extremity swelling. Review of Systems-Cardiology Review of Systems Constitutional: No As described under HPI, No no symptoms reported, No chills, No fever, No lightheadedness, No malaise, No tiredness, No weight loss, No weight gain, No other Eyes: No As described under HPI, No no symptoms reported, No blindness, No blurred vision, No contact lenses, No drainage, No decreased acuity, No foreign body sensation, No glasses, No inflammation, No pain, No photophobia, No previous injury, No shadows, No tunnel vision, No other, No vision change Ears/Nose/Throat: No As described under HPI, No no symptoms reported, No chronic hearing loss, No epistaxis, No ear discharge, No ear pain, No loose teeth, No mouth pain, No mouth swelling, No nasal drainage, No nose pain, No recent hearing loss, No throat pain, No throat swelling, No ulcerations, No other Respiratory: No no symptoms reported, No As described under HPI, No cough, No orthopnea, No shortness of breath, No SOB with excertion, No SOB at rest, No stridor, No wheezing, No other Cardiovascular: No no symptoms reported, No As described under HPI, No chest pain, No edema, No irregular heart rate, No lightheadedness, No palpitations, No syncope, No other Gastrointestinal: No no symptoms reported, No As described under HPI, No abdomen distended, No abdominal pain, No blood streaked bowels, No constipation , No diarrhea, No difficulty swallowing, No nausea, No poor appetite, No poor fluid intake, No rectal bleeding, No vomiting, No other, No nausea/vomiting/ diarrhea, No stool coloration changes Genitourinary: No no symptoms reported, No As described under HPI, No burning, No dysuria, No discharge, No frequency, No flank pain, No hematuria, No incontinence, No pain, No urgency, No other, No urine frequency changes, No urine coloration changes Musculoskeletal: No no symptoms reported, No As describe under HPI, No back pain, No gout, No joint pain, No joint swelling, No muscle pain, No muscle stiffness, No neck pain, No other Skin: No no symptoms reported, No As described under HPI, No change in color, No change in hair/nails, No dryness, No lesions, No lumps, No rash, No other, No skin related problems, No ulcerations, No rash on exposed areas, No ulcerations on exposed areas Psychiatric/Neurological: No As described under HPI, No anxiety, No depression , No emotional problems, No focal weakness, No headache, No no symptoms reported , No numbness, No other, No pre-existing deficit, No seizure, No syncope, No tingling, No tremors, No weakness Hematologic: No no symptoms reported, No As described under HPI, No anemia, No blood clots, No easy bleeding, No easy bruising, No swollen glands, No other, No bleeding abnormalities All Other Systems Reviewed Negative Unless Noted: Yes BOR-Iqtajl-Cwanwm Hx Patient Social History Alcohol Use: Occasionally Uses Recreational Drug Use: No Smoking Status: Former Smoker Type Used: Cigarettes Recent Foreign Travel: No Recent Infectious Disease Expo: No Hospitalization with Isolation: Denies Physical Abuse Screen: No Sexual Abuse: No Immunizations Up To Date Tetanus Booster (TDap): Unknown Date of Pneumonia Vaccine: Jul 19, 2016 Past Medical History PMH As described under Assessment. Family Medical History Family History: Patient reports no known family medical history. Allergies and Home Medications Allergies Coded Allergies: No Known Drug Allergies (Unverified , 07/12/16) Home Medications Apixaban 5 Mg Tablet 5 MG PO BID (Reported) Aspirin 81 Mg Tab.chew 81 MG PO DAILY (Reported) Atorvastatin Calcium 40 Mg Tablet 40 MG PO HS (Reported) Bisacodyl 5 Mg Tablet.dr 5-10 MG PO DAILY PRN PRN CONSTIPATION (Reported) Bumetanide 1 Mg Tablet 1 MG PO DAILY (Reported) Docusate Sodium 100 Mg Capsule 100 MG PO BID (Reported) Ferrous Sulfate 325 Mg Tablet 325 MG PO TIDWM (Reported) Hydrocodone/Acetaminophen 1 Each Tablet 1-2 EACH PO Q4H PRN PRN PAIN (Reported) Levofloxacin 750 Mg Tablet 750 MG PO Q48H (Reported) Lisinopril 20 Mg Tablet 20 MG PO BID (Reported) Metoprolol Succinate 50 Mg Tab.er.24h 50 MG PO BID (Reported) Potassium Chloride 20 Meq Tablet.er 20 MEQ PO DAILY (Reported) Physical Exam-Cardiology Physical Exam Vital Signs/I&O Vital Sign - Last 12Hours 07/31/16 07/31/16 06:00 07:44 Temp 99.9 Pulse 66 Resp 20 B/P 163/75 Pulse Ox 93 90 O2 Delivery Room Air Room Air Intake and Output 07/31/16 00:00 Intake Total 610 ml Balance 610 ml Capillary Refill : Constitutional: No appears stated age, No AAO x 3, No apparent distress, No PERRL, No well-developed, No well-nourished, No other HEENT: No PERRL, No normal ENT inspection, No TMs normal, No pharynx normal, No scleral icterus (R), No scleral icterus (L), No pale conjunctivae (R), No pale conjunctivae (L), No photophobia, No TM abnormal (R), No TM abnormal (L), No pharyngeal erythema, No tonsillar exudate, No other, No discharge, No EOMI, No hearing is well preserved, No hard of hearing, No oral hygience is good, No ulceration, No xanthelasmas are seen Neck: No non-tender, No full range of motion, No supple, No normal inspection, No carotid bruit, No limited range of motion, No lymphadenopathy (R), No lymphadenopathy (L), No tender lateral, No tender midline, No thyromegaly, No other, No carotid pulses are 2 + bilaterally, No with good upstrokes Respiratory: No accessory muscle use, No respiratory distress, No chest tender , No chest expansion is symmetric, No chest is bilaterally symmetric, No lungs clear to percussion, No lungs clear to auscultation, No crackles, No rhonchi, No rales, No stridor, No wheezing, No pleural rub, No other Cardiovascular: No regular rate-rhythm, No irregularly irregular, No extra beats, No parasternal heave is noted, No JVD, edemaNo bradycardia, No tachycardia, No point of maximal impulse, No cardiac thrills are palpable, No S1 and S2, No gallop/S3, No gallop/S4, No diastolic murmur, No systolic murmur, No friction rub, No click, other (sternal wound) Gastrointestinal: No tender, No soft, No round, No distended, No pulsatile mass , No organomegaly, No guarding, No rebound, No tenderness, No hernia, No mass, No audible bowel sounds, No abnormal bowel sounds, No abdominal bruits, No spleenomegaly, No other Rectal: deferred Extremities: No normal range of motion, No non-tender, No normal inspection, No pedal edema, No calf tenderness, No normal capillary refill, No pelvis stable , No calf tenderness, No inflammation, No pedal edema, No slow capillary refill , No swelling, No other, No abrasion, No clubbing, No cyanosis, No ecchymosis, No laceration, No no lower extremity edema bilateral, No significant edema, No tenderness, No wound Neurologic/Psychiatric: No belt cleaner II-XII nml as tested, No no motor/sensory deficits, No alert, No normal mood/affect, No oriented x 3, No abnormal cerebellar tests, No abnormal belt cleaner II-XII, No abnormal gait, No aphasia, No EOM palsy, No facial droop, No motor weakness, No sensory deficit, No depressed affect, No disoriented x 3, No other, No grossly intact, No power is 5/5 both on sides Skin: No normal color, No warm/dry, No cyanosis, No cool, No diaphoresis, No damp, No ecchymosis, No jaundice, No mottled, No pallor, No rash, No tattoos/ piercings, No ulcerations, No rash on exposed areas, No ulcerations on exposed areas, No other Data Review Labs Laboratory Tests 07/30/16 15:00: Urine Bacteria NEGATIVE, Urine Bilirubin NEGATIVE, Urine Casts NONE, Urine Clarity CLEAR, Urine Color YELLOW, Urine Crystals NONE, Urine Culture Indicated NO, Urine Glucose (UA) NEGATIVE, Urine Ketones NEGATIVE, Urine Leukocyte Esterase NEGATIVE, Urine Mucus NEGATIVE, Urine Nitrite NEGATIVE, Urine Protein NEGATIVE, Urine RBC NONE, Urine RBC (Auto) NEGATIVE, Urine Specific [place] 1.010L, Urine Squamous Epithelial Cells RARE, Urine Urobilinogen NORMAL, Urine WBC NONE, Urine pH 7 A/P-Cardiology Assessment/Admission Diagnosis status post aortic surgery, coronary artery disease Plan status post aortic valve replacement. Stable undergoing rehabilitation. Coronary artery disease: Mild to moderate. Lower external swelling: Diuretics. Please make an appointment with my office once ready to discharge for follow- up. Thank you Thank you for your consultation. Please call me if you have any questions. Letty Linn MD, FACP, FACC, FSCAI, FHRS, CCDS Interventional Cardiology Cardiac Electrophysiology Vascular Medicine and Endovascular Interventions Clinical Quality Measures DVT/VTE Risk/Contraindication: Risk Factor Score Per Nursin RFS Level Per Nursing on Admit: 4+=Very High Quinn LINN MD Jul 31, 2016 12:03 pm
[2016-07-31] MEDS ORDERED: BUMETANIDE 1 MG (BUMEX) TAB PO SCH (16:00)
[2016-07-31 18:00] VITALS: BP 119/70
[2016-07-31] MEDS: ATORVASTATIN 40 MG (LIPITOR) TABLET PO SCH (20:54)
[2016-08-01 06:00] VITALS: BP 136/74
[2016-08-01] MEDS: FERROUS SULF 325 MG (IRON) TAB PO SCH ×3 (06:24→16:28)
[2016-08-01] MEDS: BUMETANIDE 1 MG (BUMEX) TAB PO SCH ×2 (06:24→16:19)
[2016-08-01] MEDS: KCL 20 MEQ TAB (K-DUR) PO SCH (06:24)
[2016-08-01] MEDS: HYDROcodone/APAP 5 MG/325 MG (LORTAB) TAB PO PRN ×2 (06:24→20:10)
[2016-08-01] MEDS: RT-ALBUTEROL SULF 2.5 MG/3 ML PRE-MIX VIAL INH SCH ×2 (07:39→20:07)
[2016-08-01] MEDS: SIMETHICONE 80 MG (MYLICON) CHEW PO SCH ×4 (08:00→20:01)
[2016-08-01 09:00] VITALS: BP 127/71
[2016-08-01] MEDS: meTOproloL SUCCINATE 50 MG (TOPROL XL) TAB PO SCH ×2 (09:08→20:09)
[2016-08-01] MEDS: APIXABAN 5 MG (ELIQUIS) TABLET PO SCH ×2 (09:08→20:09)
[2016-08-01] MEDS: DOCUSATE SODIUM 100 MG (COLACE) CAP PO SCH ×2 (09:08→20:09)
[2016-08-01] MEDS: ASPIRIN 81 MG CHEW (CHILDREN'S ASA) PO SCH (09:08)
[2016-08-01] MEDS: lisINopril 20 MG (ZESTRIL) TAB PO SCH ×2 (09:08→20:09)
[2016-08-01 17:48] VITALS: BP 107/65
[2016-08-01] MEDS: ATORVASTATIN 40 MG (LIPITOR) TABLET PO SCH (20:09)
[2016-08-02 05:08] LABS: BASOPHILS % (AUTO) 0 % (0-10); EOSINOPHILS # (AUTO) 0.4 10^3/uL (0.0-0.3); EOSINOPHILS % (AUTO) 4 % (0-10); LYMPHOCYTES # (AUTO) 1.7 X 10^3 (1.0-4.0); LYMPHOCYTES % (AUTO) 19 % (12-44); MEAN CORPUSCULAR HEMOGLOBIN 29 PG (25-34); MEAN CORPUSCULAR HGB CONC 33 G/DL (32-36); MEAN CORPUSCULAR VOLUME 89 FL (80-99); MEAN PLATELET VOLUME 9.3 FL (7.4-10.4); MONOCYTES # (AUTO) 0.9 X 10^3 (0.0-1.0); MONOCYTES % (AUTO) 10 % (0-12); NEUTROPHILS # (AUTO) 6.1 X 10^3 (1.8-7.8); NEUTROPHILS % (AUTO) 67 % (42-75); PLATELET COUNT 503 10^3/uL (130-400); RED BLOOD COUNT 3.02 10^6/uL (4.35-5.85); RED CELL DISTRIBUTION WIDTH 14.8 % (10.0-14.5); WHITE BLOOD COUNT 9.2 10^3/uL (4.3-11.0)
[2016-08-02 05:28] LABS: ALBUMIN 2.9 G/DL (3.2-4.5); CALCIUM 8.8 MG/DL (8.5-10.1); CREATININE SERUM 1.06 MG/DL (0.60-1.30); PHOSPHORUS 4.5 MG/DL (2.3-4.7); POTASSIUM 3.8 MMOL/L (3.6-5.0)
[2016-08-02 06:00] VITALS: BP 123/73
[2016-08-02] MEDS: KCL 20 MEQ TAB (K-DUR) PO SCH (06:20)
[2016-08-02] MEDS: FERROUS SULF 325 MG (IRON) TAB PO SCH ×3 (06:21→16:22)
[2016-08-02] MEDS: HYDROcodone/APAP 5 MG/325 MG (LORTAB) TAB PO PRN ×4 (06:21→22:49)
[2016-08-02] MEDS: BUMETANIDE 1 MG (BUMEX) TAB PO SCH ×2 (06:21→16:21)
[2016-08-02] MEDS: RT-ALBUTEROL SULF 2.5 MG/3 ML PRE-MIX VIAL INH SCH ×2 (07:58→19:41)
[2016-08-02] MEDS: SIMETHICONE 80 MG (MYLICON) CHEW PO SCH ×4 (08:00→20:09)
[2016-08-02] MEDS: APIXABAN 5 MG (ELIQUIS) TABLET PO SCH ×2 (08:10→20:09)
[2016-08-02] MEDS: meTOproloL SUCCINATE 50 MG (TOPROL XL) TAB PO SCH ×2 (08:10→20:09)
[2016-08-02] MEDS: DOCUSATE SODIUM 100 MG (COLACE) CAP PO SCH ×2 (08:10→20:09)
[2016-08-02] MEDS: lisINopril 20 MG (ZESTRIL) TAB PO SCH ×2 (08:10→20:09)
[2016-08-02] MEDS: ASPIRIN 81 MG CHEW (CHILDREN'S ASA) PO SCH (08:10)
--- NOTE | 2016-08-02 08:56 | Occupational Ther Daily Note ---
OT Current Status-Daily Note Subjective Pt alert, lying in bed. Pt very apprehensive about taking a shower. Nrsg came in and discussed protocols of getting water on incision. Pt agreed to take shower. No pain reported. Mental Status/Objective Patient Orientation: Person, Place, Time, Situation Functional [place] Measure 0=Not Assessed/NA 4=Minimal Assistance 1=Total Assistance 5=Supervision or Setup 2=Maximal Assistance 6=Modified [place] 3=Moderate Assistance 7=Complete [place] ADL-Treatment Functional [place] Measure 0=Not Assessed/NA 4=Minimal Assistance 1=Total Assistance 5=Supervision or Setup 2=Maximal Assistance 6=Modified [place] 3=Moderate Assistance 7=Complete IndependenceIRFPAI Quality Coding Scale 6 Independent with activity with or without an assistive device 5 Patient requires set up or clean up by helper. Patient completes activity by themselves 4 Supervision or touching assist (CGA). [place] provide cues , steadying assist 3 The helper provides less than half the effort to complete the activity 2 The helper provides more than half the effort to complete the activity 1 Dependent. The helper does all the effort to complete an activity 7 Patient refused to complete or attempt activity 9 The patient did not perform the activity before the current illness or injury 88 Not attempted due to Medical conditions or safety concerns Eating (FIM): 7 (Pt is able to open packages/container by self then use regular utensils for feeding self.) Eating (QC): 6 (Pt is able to open packages/container by self then use regular utensils for feeding self.) Grooming (FIM): 6 (Standing at sink with FWW, pt is able to complete grooming by self.) Oral Hygiene (QC): 6 (Standing at sink with FWW, pt is able to complete oral hygiene.) Toileting Hygiene (QC): 6 (Using FWW and grabbar pt is able to complete own toileting by self.) Bathing (FIM): 6 (Using shower, grabbar and hand held shower pt is able to complete own bathing.) Upper Body (FIM): 6 (Using FWW, pt is able to retrieve clothing and don/doff by self.) Upper Body Dressing (QC): 6 (Using FWW, pt is able to retrieve clothing and don /doff by self.) Lower Body Dressing (FIM): 6 (Using FWW, pt is able to retrieve clothing and don/doff by self.) Lower Body Dressing (QC): 6 (Using FWW, pt is able to retrieve clothing and don /doff by self.) On/Off Footwear (QC): 6 (Pt is able to don/doff footwear by self.) Toileting (FIM): 6 (Using FWW and grabbar pt is able to complete own toileting by self.) Transfers (B, C, W/C) (FIM): 6 (Using FWW, pt is able to transfer.) Toilet/Commode Transfer (FIM): 6 (Using FWW and grabbars, pt is able to transfer.) Toilet Transfer (QC): 6 (Using FWW and grabbars, pt is able to transfer.) Shower Transfer(FIM): 6 (Using FWW, shower bench and grabbars, pt is able to transfer.) After therapy, pt sitting on EOB with call light/phone in reach. All needs met in room. OT Short Term Goals Short Term Goals Transfers (B,C,W/C) (FIM): 5 (met-07/24/16) 1=Demonstrate adherence to instructed precautions during ADL tasks. 2=Patient will verbalize/demonstrate understanding of assistive devices/ modifications for ADL. 3=Patient will improve strength/tolerance for activity to enable patient to perform ADL's. OT Longterm Goals Longterm Goals Time Frame: Aug 02, 2016 Eating (FIM): 6 (met-07/24/16) Eating (QC): 6 (met-07/24/16) Oral Hygiene (QC): 6 (met-07/24/16) Grooming(FIM): 6 (met-07/24/16) Bathing(FIM): 6 Shower/Bathe Self (QC): 6 (met-08/02/16) Upper Body Dressing(FIM): 6 (met-08/02/16) Upper Body Dressing (QC): 6 (met-08/02/16) Lower Body Dressing(FIM): 6 (met-08/02/16) Lower Body Dressing (QC): 6 (met-08/02/16) On/Off Footwear (QC): 6 (met-08/02/16) Toileting(FIM): 6 (met-07/24/16) Toileting Hygiene (QC): 6 (met-08/02/16) Transfers (B,C,W/C) (FIM): 6 (met-08/02/16) Toilet/Commode Transfer(FIM): 6 (met-08/02/16) Toilet/Commode Transfer (QC): 6 (met-08/02/16) Shower Transfer(FIM): 6 (met-08/02/16) Additional Goals: 1-Demonstrate ADL Tasks, 2-Verbalize Understanding, 3- ImproveStrength/[place] 1=Demonstrate adherence to instructed precautions during ADL tasks. 2=Patient will verbalize/demonstrate understanding of assistive devices/ modifications for ADL. 3=Patient will improve strength/tolerance for activity to enable patient to perform ADL's. OT Education/Plan Discharge Recommendations Plan/Recommendations: Continue POC Treatment Plan/Plan of Care Patient would benefit from OT for education, treatment and training to promote independence in ADL's, mobility, safety and/or upper extremity function for ADL' s. Plan of Care: ADL Retraining, Functional Mobility, UE Funct Exercise/Act Treatment Duration: Aug 02, 2016 Visits Per Week: 10-11 Minutes/Day (M-F): 60-90 Minutes/Day (Sat/[place]): 15-30 Agreement: Yes Rehab Potential: Good Time/GCodes Start Time: 08:00 Stop Time: 09:00 Total Time Billed (hr/min): 60 Billed Treatment Time 1 visit-ADL 4 (60 min) ERASMO SIMMONS Aug 02, 2016 08:55
[2016-08-02] MEDS: LEVOFLOXACIN 750 MG TAB (LEVAQUIN) PO SCH (09:23)
--- NOTE | 2016-08-02 11:58 | Physical Therapy Daily Note ---
PT Daily Note-Current Subjective Pt. initially in bathroom, out soon and agree to Rx. Pt states she feels confident that her heat will be repaired today and she will be able to return home tomorrow as planned. Pt. c/o some pain she calls bursitis in mid back. States she just took a pain pill brought by nurse and states at end of Rx that her pain which was 4/10 is now gone. Pain Numeric Pain Scale: 0-No Pain Mental Status Patient Orientation: Normal For Age Transfers Functional [place] Measure 0=Not Assessed/NA 4=Minimal Assistance 1=Total Assistance 5=Supervision or Setup 2=Maximal Assistance 6=Modified [place] 3=Moderate Assistance 7=Complete IndependenceIRFPAI Quality Coding Scale 6 Independent with activity with or without an assistive device 5 Patient requires set up or clean up by helper. Patient completes activity by themselves 4 Supervision or touching assist (CGA). [place] provide cues , steadying assist 3 The helper provides less than half the effort to complete the activity 2 The helper provides more than half the effort to complete the activity 1 Dependent. The helper does all the effort to complete an activity 7 Patient refused to complete or attempt activity 9 The patient did not perform the activity before the current illness or injury 88 Not attempted due to Medical conditions or safety concerns Transfers (B, C, W/C) (FIM): 7 Scootin Rollin Roll Left to Right (QC): 6 Supine to/from Sit: 7 Sit to/from Stand: 7 Sit to Lying (QC): 6 Sit to Stand (QC): 6 Chair/Frw-bg-Vpxzh Xfer(QC): 6 Bed to/from Chair: 7 Gait Training Does the Patient Walk?: Yes Gait (FIM): 6 Distance (FIM): 3=150 ft (250x2) Walk 10 feet (QC): 6 Walk 50 ft with 2 Turns(QC): 6 Walk 150 ft (QC): 6 Walking 10ft on uneven surface: 6 Gait Level of Assist: 7 Gait Persons Needed: 0 Gait Assistive Device: FWW Stair Training Stair Training: Handrails/: 2 handrails Stairs (FIM): 6 #of Steps: 12 1 Step (curb) (QC): 6 4 Steps (QC): 6 12 Steps (QC): 6 Stairs: Pattern: Reciprocal Level of Assist: 7 Balance Picking up an Object (QC): 6 Exercises Seated Therapy Exercises: Ankle pumps, Sit to stand, Long arc quads, Hip flexion Seated Reps: 10 NuStep Minutes: 10 NuStep Workload: 3 Treatments pt. toileted and freshened up at sink indep Assessment Current Status: Excellent Progress pt. meets all goals. It is apparent pt. is very anxious to DC. Expresses that she feels rehab is "stupid" hesitant to cooperate/participate, stalls etc. PT Short Term Goals Short Term Goals Time Frame: Aug 02, 2016 Transfers (B,C,W/C) (FIM): 5 (met-07/24/16) Gait (FIM): 5 Gait Distance Comment: 300' Gait Level of Assist: 5 Gait Assistive Device: FWW PT Web Development Manager Goals Web Development Manager Goals PT Usp Goals Time Frame: Aug 16, 2016 Transfers (B,C,W/C) (FIM): 6 Sit to Lying (QC): 6 Lying-Sitting on Side/Bed(QC): 6 Sit to Stand (QC): 6 Rollin Roll Left to Right (QC): 6 Chair/Oyt-xw-Aszah Xfer(QC): 6 Car Transfer (QC): 4 Does the Patient Walk: Yes Gait (FIM): 6 Distance: 500' Walk 10 feet (QC): 6 Walk 10ft-Uneven Surface(QC): 6 Walk 50ft with 2 Turns (QC): 6 Walk 150 ft (QC): 6 Gait Level of Assist: 6 Gait Assistive Device: FWW Stairs (FIM): 5 # of Steps: 12 1 Step (curb) (QC): 4 4 Steps (QC): 4 12 Steps (QC): 4 Stairs Level Of Assist: 5 Picking up an Object (QC): 5 PT Plan Treatment/Plan Treatment Plan: Continue Plan of Care Treatment Plan: Bed Mobility, Education, Functional Activity [place], Functional Strength, Group Therapy, Gait, Safety, Therapeutic Exercise, Transfers Treatment Duration: Aug 16, 2016 Visits Per Week: 10-11 Minutes/Day (M-F): 60-90 Minutes/Day (Sat/[place]): 15-30 Safety Risks/Education Patient Education: Gait Training, Transfer Techniques, Steps, Correct Positioning, Disease Process (discussed the importance of deep breathing, frequent activity as well as reporting pain to Dr etc), Safety Issues Teaching Recipient: Patient Teaching Methods: Demonstration, Discussion Response to Teaching: Verbalize Understanding, Return Demonstration, Reinforcement Needed Time/GCodes Time In: 1100 Time Out: 1200 Total Billed Treatment Time: 60 Total Billed Treatment 1,GT25m,FA20m,EX15m G Codes Necessary: ARIS Tovar SLAB LIFTING ENGINEER Aug 02, 2016 11:58
--- NOTE | 2016-08-02 13:53 | Occupational Ther Daily Note ---
OT Current Status-Daily Note Subjective Pt alert, sitting in chair daughter present in room. Pt agreed to therapy. Pt stated that the heating and air people had gotten the part for her furnace in but it wasn't the right part. No c/o pain at this time. Mental Status/Objective Patient Orientation: Person, Place, Time, Situation Functional [place] Measure 0=Not Assessed/NA 4=Minimal Assistance 1=Total Assistance 5=Supervision or Setup 2=Maximal Assistance 6=Modified [place] 3=Moderate Assistance 7=Complete [place] ADL-Treatment Functional [place] Measure 0=Not Assessed/NA 4=Minimal Assistance 1=Total Assistance 5=Supervision or Setup 2=Maximal Assistance 6=Modified [place] 3=Moderate Assistance 7=Complete IndependenceIRFPAI Quality Coding Scale 6 Independent with activity with or without an assistive device 5 Patient requires set up or clean up by helper. Patient completes activity by themselves 4 Supervision or touching assist (CGA). [place] provide cues , steadying assist 3 The helper provides less than half the effort to complete the activity 2 The helper provides more than half the effort to complete the activity 1 Dependent. The helper does all the effort to complete an activity 7 Patient refused to complete or attempt activity 9 The patient did not perform the activity before the current illness or injury 88 Not attempted due to Medical conditions or safety concerns Other Treatment Pt ambulated to therapy gym with supervision using FWW. Pt then completed wrist flexion exercises with 2# wt 30x's each hand. Then completed arm bike 13 min at 20 [place] resistance to increase strength and activity tolerance for daily functional tasks. Ambulated back to room with FWW and pt was able to get pillows for her chair and stack them by herself. After therapy, pt sitting in chair with call light/phone in reach. All needs met in room. OT Short Term Goals Short Term Goals Transfers (B,C,W/C) (FIM): 5 (met-07/24/16) 1=Demonstrate adherence to instructed precautions during ADL tasks. 2=Patient will verbalize/demonstrate understanding of assistive devices/ modifications for ADL. 3=Patient will improve strength/tolerance for activity to enable patient to perform ADL's. OT Control Officer Manager Goals Control Officer Manager Goals Time Frame: Aug 02, 2016 Eating (FIM): 6 (met-07/24/16) Eating (QC): 6 (met-07/24/16) Oral Hygiene (QC): 6 (met-07/24/16) Grooming(FIM): 6 (met-07/24/16) Bathing(FIM): 6 Shower/Bathe Self (QC): 6 (met-08/02/16) Upper Body Dressing(FIM): 6 (met-08/02/16) Upper Body Dressing (QC): 6 (met-08/02/16) Lower Body Dressing(FIM): 6 (met-08/02/16) Lower Body Dressing (QC): 6 (met-08/02/16) On/Off Footwear (QC): 6 (met-08/02/16) Toileting(FIM): 6 (met-07/24/16) Toileting Hygiene (QC): 6 (-08/02/16) Transfers (B,C,W/C) (FIM): 6 (met-08/02/16) Toilet/Commode Transfer(FIM): 6 (met-08/02/16) Toilet/Commode Transfer (QC): 6 (met-08/02/16) Shower Transfer(FIM): 6 (met-08/02/16) Additional Goals: 1-Demonstrate ADL Tasks, 2-Verbalize Understanding, 3- ImproveStrength/[place] 1=Demonstrate adherence to instructed precautions during ADL tasks. 2=Patient will verbalize/demonstrate understanding of assistive devices/ modifications for ADL. 3=Patient will improve strength/tolerance for activity to enable patient to perform ADL's. OT Education/Plan Discharge Recommendations Plan/Recommendations: Continue POC Treatment Plan/Plan of Care Patient would benefit from OT for education, treatment and training to promote independence in ADL's, mobility, safety and/or upper extremity function for ADL' s. Plan of Care: ADL Retraining, Functional Mobility, UE Funct Exercise/Act Treatment Duration: Aug 02, 2016 Visits Per Week: 10-11 Minutes/Day (M-F): 60-90 Minutes/Day (Sat/[place]): 15-30 Agreement: Yes Rehab Potential: Good Time/GCodes Start Time: 13:10 Stop Time: 13:40 Total Time Billed (hr/min): 30 Billed Treatment Time 1 visit-EX 2 (30 min) ERASMO SIMMONS Aug 02, 2016 13:53
--- NOTE | 2016-08-02 14:59 | Physical Therapy Daily Note ---
PT Daily Note-Current Subjective Agreeable to Rx after some time as pt. ordered lunch just before scheduled therapy. Pt. very disappointed b/c the p[art for her heat unit at home to be repaired was not the right size, so she is not sure when her heat at home will be repaired Pain Numeric Pain Scale: 0-No Pain Mental Status Patient Orientation: Normal For Age Transfers Functional [place] Measure 0=Not Assessed/NA 4=Minimal Assistance 1=Total Assistance 5=Supervision or Setup 2=Maximal Assistance 6=Modified [place] 3=Moderate Assistance 7=Complete IndependenceIRFPAI Quality Coding Scale 6 Independent with activity with or without an assistive device 5 Patient requires set up or clean up by helper. Patient completes activity by themselves 4 Supervision or touching assist (CGA). [place] provide cues , steadying assist 3 The helper provides less than half the effort to complete the activity 2 The helper provides more than half the effort to complete the activity 1 Dependent. The helper does all the effort to complete an activity 7 Patient refused to complete or attempt activity 9 The patient did not perform the activity before the current illness or injury 88 Not attempted due to Medical conditions or safety concerns all TRFs chair, bed and toilet Mod I Gait Training Gait Assistive Device: FWW [id number] good alignment, no LOB, will try gait no AD 1-17 Exercises Standing: Hip Abduction, Hamstring curls, Heel/toe raises, Marching, Mini squats, Sit to Stand Standing Reps: 15 rests between exercises seated Assessment Current Status: Excellent Progress PT Short Term Goals Short Term Goals Time Frame: Aug 02, 2016 Transfers (B,C,W/C) (FIM): 5 (met-07/24/16) Gait (FIM): 5 Gait Distance Comment: 300' Gait Level of Assist: 5 Gait Assistive Device: FWW PT Habitat Biologist Goals Habitat Biologist Goals PT Habitat Biologist Goals Time Frame: Aug 16, 2016 Transfers (B,C,W/C) (FIM): 6 Sit to Lying (QC): 6 Lying-Sitting on Side/Bed(QC): 6 Sit to Stand (QC): 6 Rollin Roll Left to Right (QC): 6 Chair/Klz-cg-Fydni Xfer(QC): 6 Car Transfer (QC): 4 Does the Patient Walk: Yes Gait (FIM): 6 Distance: 500' Walk 10 feet (QC): 6 Walk 10ft-Uneven Surface(QC): 6 Walk 50ft with 2 Turns (QC): 6 Walk 150 ft (QC): 6 Gait Level of Assist: 6 Gait Assistive Device: FWW Stairs (FIM): 5 # of Steps: 12 1 Step (curb) (QC): 4 4 Steps (QC): 4 12 Steps (QC): 4 Stairs Level Of Assist: 5 Picking up an Object (QC): 5 PT Plan Treatment/Plan Treatment Plan: Continue Plan of Care Treatment Plan: Bed Mobility, Education, Functional Activity Renetta, Functional Strength, Group Therapy, Gait, Safety, Therapeutic Exercise, Transfers Treatment Duration: Aug 16, 2016 Visits Per Week: 10-11 Minutes/Day (M-F): 60-90 Minutes/Day (Sat/Matute): 15-30 Safety Risks/Education Patient Education: Gait Training, Transfer Techniques, Issued Written HEP Teaching Recipient: Patient Teaching Methods: Demonstration, Discussion Response to Teaching: Verbalize Understanding, Return Demonstration, Reinforcement Needed Time/GCodes Time In: 1425 Time Out: 1455 Total Billed Treatment Time: 30 Total Billed Treatment 1,EX30m G Codes Necessary: ARIS Tovar ASIAN STUDIES PROFESSOR Aug 02, 2016 14:59
[2016-08-02 18:18] VITALS: BP 119/66
[2016-08-02] MEDS: ATORVASTATIN 40 MG (LIPITOR) TABLET PO SCH (20:09)
--- NOTE | 2016-08-02 20:49 | PM & R (SOAP) Progress Note ---
Subjective Subjective/Events-last exam Patient was seen in her room this evening Patient Modified Independent for transfers Fever resolved Appreciate Dr Shook orders and DR Rivas note Cardiology re Pleural effusion seen on CXR improved with diuretic Patient wanst to use her own home med of Voltaren Capsule for arthritic pain See order. Objective Exam Last Set of Vital Signs Vital Signs Date Time Temp Pulse Resp B/P Pulse Ox O2 Delivery O2 Flow Rate FiO2 08/02/16 19:43 93 Room Air 08/02/16 18:18 98.0 72 16 119/66 Capillary Refill : I&O Intake and Output 08/02/16 00:00 Intake Total 620 ml Output Total 3450 ml Balance -2830 ml Intake Oral 620 ml Output Urine Total 3450 ml # Bowel Movements 1 General: Alert, Oriented X3, Cooperative, No Acute Distress HEENT: Atraumatic, PERRLA, EOMI, Mucous Memb Moist/[place] Neck: Supple, No JVD Lungs: Clear to Auscultation Heart: Regular Rate Abdomen: Normal Bowel Sounds, Soft, No Tenderness Extremities: No Edema Skin: Other ( as per above) Neuro: Other (good strength) Results Lab Laboratory Tests 08/02/16 04:55: Albumin 2.9L, Anion Gap 11, BUN/Creatinine Ratio 17, Basophils # (Auto) 0.0, Basophils (%) (Auto) 0, Blood Urea Nitrogen 18, Calcium Level 8.8, Carbon Dioxide Level 27, Chloride Level 96L, Creatinine 1.06, Eosinophils # (Auto) 0.4H , Eosinophils (%) (Auto) 4, Estimat Glomerular Filtration Rate 50, Glucose Level 102, Hematocrit 27L, Hemoglobin 8.8L, Lymphocytes # (Auto) 1.7, Lymphocytes (%) (Auto) 19, Mean Corpuscular Hemoglobin 29, Mean Corpuscular Hemoglobin Concent 33, Mean Corpuscular Volume 89, Mean Platelet Volume 9.3, Monocytes # (Auto) 0.9, Monocytes (%) (Auto) 10, Neutrophils # (Auto) 6.1, Neutrophils (%) (Auto) 67, Phosphorus Level 4.5, Platelet Count 503H, Potassium Level 3.8, Red Blood Count 3.02L, Red Cell Distribution Width 14.8H, Sodium Level 134L, White Blood Count 9.2 Assessment/Plan Assessment General debil s/p Valve replacement OA of knee Postop constipation-improved HTN controlled HLP Postop fever-Labs and CXR ordered=done fever resolved and pleural effusion treated Will ask Hospitalist to review-done OK for Voltaran capsule -home med see orders. See orders Team Conference 08/04/16 Plan Continue PT/OT Pain management F/U with Hospitalist re postop fever Check labs and CXR as per above Team Conference held 07-28-16-See report for full functional update and POC and HOLLIE FLORES MD Aug 02, 2016 20:49
[2016-08-03 06:00] VITALS: BP 124/79
[2016-08-03] MEDS: BUMETANIDE 1 MG (BUMEX) TAB PO SCH ×2 (06:43→16:23)
[2016-08-03] MEDS: FERROUS SULF 325 MG (IRON) TAB PO SCH ×3 (06:43→16:22)
[2016-08-03] MEDS: KCL 20 MEQ TAB (K-DUR) PO SCH (06:44)
[2016-08-03] MEDS: RT-ALBUTEROL SULF 2.5 MG/3 ML PRE-MIX VIAL INH SCH ×2 (07:57→19:06)
[2016-08-03] MEDS: SIMETHICONE 80 MG (MYLICON) CHEW PO SCH ×4 (08:00→20:23)
--- NOTE | 2016-08-03 08:56 | Progress Note-Hospitalist ---
Progress Note HPI/CC on Admission Pt's main complaint is the back pain and we will start Ultram to see if that helps her since the Lortab causes her to be "loopy. Progress Notes/Assess & Plan Date Seen 08/03/16 Admission Dx/Process status post aortic valve replacement Paroxysmal atrial fibrillation Severe back pain with stability Indigestion CAD Diagonsis/Assessment & Plan No fever Just had some nausea but had been doing very well otherwise No BM yesterday but has been regular No cough Edema is improved AFVSS, Pleasant, O x 3 RRR, CTAB no rales noted trace edema improved Assessment: s/p aortic valve replacement Paroxysmal atrial fibrillation Severe back pain with debility Indigestion CAD Edema Low grade fever and mild elevation in wbc now completed Levaquin Plan: Continue pain meds on a scheduled basis. Lactulose prn Cardiology evaluation appreciated ERMA MONTGOMERY DO Aug 03, 2016 08:56
--- NOTE | 2016-08-03 10:22 | Physical Therapy Daily Note ---
PT Daily Note-Current Subjective Upon entering room pt. in bed announces that she is not going to any therapy today. Pt. states she is sick and has thrown up her meds etc. Nurse advises of pts low grade fever during the night as well as vomiting up protein shake at breakfast. Transfers Functional [place] Measure 0=Not Assessed/NA 4=Minimal Assistance 1=Total Assistance 5=Supervision or Setup 2=Maximal Assistance 6=Modified [place] 3=Moderate Assistance 7=Complete IndependenceIRFPAI Quality Coding Scale 6 Independent with activity with or without an assistive device 5 Patient requires set up or clean up by helper. Patient completes activity by themselves 4 Supervision or touching assist (CGA). [place] provide cues , steadying assist 3 The helper provides less than half the effort to complete the activity 2 The helper provides more than half the effort to complete the activity 1 Dependent. The helper does all the effort to complete an activity 7 Patient refused to complete or attempt activity 9 The patient did not perform the activity before the current illness or injury 88 Not attempted due to Medical conditions or safety concerns Assessment pt. leaving room now with XR for chest XR. PT Short Term Goals Short Term Goals Time Frame: Aug 02, 2016 Transfers (B,C,W/C) (FIM): 5 (met-07/24/16) Gait (FIM): 5 Gait Distance Comment: 300' Gait Level of Assist: 5 Gait Assistive Device: FWW PT Education Analyst Goals Education Analyst Goals PT Education Analyst Goals Time Frame: Aug 16, 2016 Transfers (B,C,W/C) (FIM): 6 Sit to Lying (QC): 6 Lying-Sitting on Side/Bed(QC): 6 Sit to Stand (QC): 6 Rollin Roll Left to Right (QC): 6 Chair/Cer-gb-Fiuuw Xfer(QC): 6 Car Transfer (QC): 4 Does the Patient Walk: Yes Gait (FIM): 6 Distance: 500' Walk 10 feet (QC): 6 Walk 10ft-Uneven Surface(QC): 6 Walk 50ft with 2 Turns (QC): 6 Walk 150 ft (QC): 6 Gait Level of Assist: 6 Gait Assistive Device: FWW Stairs (FIM): 5 # of Steps: 12 1 Step (curb) (QC): 4 4 Steps (QC): 4 12 Steps (QC): 4 Stairs Level Of Assist: 5 Picking up an Object (QC): 5 PT Plan Treatment/Plan Treatment Plan: Continue Plan of Care Treatment Plan: Bed Mobility, Education, Functional Activity Renetta, Functional Strength, Group Therapy, Gait, Safety, Therapeutic Exercise, Transfers Treatment Duration: Aug 16, 2016 Visits Per Week: 10-11 Minutes/Day (M-F): 60-90 Minutes/Day (Sat/Matute): 15-30 Time/GCodes Time In: 945 Time Out: 947 Total Billed Treatment Time: 0 Total Billed Treatment 1,no RX, no chg, see nursing and Dr notes G Codes Necessary: No ARIS AUSTIN MOLD FORMS BUILDER Aug 03, 2016 10:22
[2016-08-03] MEDS: ASPIRIN 81 MG CHEW (CHILDREN'S ASA) PO SCH (10:27)
[2016-08-03] MEDS: DOCUSATE SODIUM 100 MG (COLACE) CAP PO SCH ×2 (10:27→20:23)
[2016-08-03] MEDS: lisINopril 20 MG (ZESTRIL) TAB PO SCH ×2 (10:28→20:23)
[2016-08-03] MEDS: APIXABAN 5 MG (ELIQUIS) TABLET PO SCH (10:28)
[2016-08-03] MEDS: meTOproloL SUCCINATE 50 MG (TOPROL XL) TAB PO SCH ×2 (10:28→20:23)
--- NOTE | 2016-08-03 10:51 | Diagnostic Imaging Report ---
EXAMINATION: PA and lateral views of the chest. INDICATION: Pleural effusion. FINDINGS: There is a moderate to large left pleural effusion, slightly increased from the 07/30/2016 exam. The left lower lobe is obscured by the effusion with underlying atelectasis. The right lung is clear of focal infiltrates. There is background COPD and mild interstitial thickening noted. The heart size is mildly enlarged. There are sternotomy wires noted. There is scoliotic curvature of the spine, convex to the left at the thoracolumbar junction. IMPRESSION: The moderate to large left pleural effusion is slightly larger compared to the previous study. The left lower lobe is atelectatic and largely obscured by the effusion. Dictated by: Dictated on workstation # [id number]
--- NOTE | 2016-08-03 10:53 | Diagnostic Imaging Report ---
EXAMINATION: Left decubitus view of the chest. INDICATION: Pleural effusion. FINDINGS: The left pleural effusion is partially layering along the dependent area on the decubitus view evaluation. This is suggestive of a probably loculated portion of the effusion in the lower aspect of the left hemithorax and possible superimposed lung consolidation. IMPRESSION: There is a moderate left pleural effusion with suggestion of loculation inferiorly. Dictated by: Dictated on workstation # [id number]
--- NOTE | 2016-08-03 11:29 | Occ Therapy Progress Note ---
Therapy Progress Note Attempted treatment twice this date. Pt. states that she does not feel well at all. Reports severe stomach pains and declines treatment, even with multiple attempts. States, "I'm just not doing anything today." All needs met in room and physician notified. 1,1, visit refused x 2 0845, 1100 CORTNEY ANDRADE OT Aug 03, 2016 11:29
[2016-08-03] MEDS: HYDROcodone/APAP 5 MG/325 MG (LORTAB) TAB PO PRN (14:00)
--- NOTE | 2016-08-03 16:57 | PM & R (SOAP) Progress Note ---
Subjective Subjective/Events-last exam Patient was seen in her room this AM Declined some therapies today due to nausea from Voltaran tabs which she stopped taking and also had CXR showing Left Pleural effusion DR Duenas her Heart DR ferreira f/u cxr in 5 days Hospitalist has OKd discharge for tomorrow Patient sba for mobility Review of Systems Gastrointestinal: : Nausea Objective Exam Last Set of Vital Signs Vital Signs Date Time Temp Pulse Resp B/P Pulse Ox O2 Delivery O2 Flow Rate FiO2 08/03/16 11:55 99.0 08/03/16 08:14 Room Air 08/03/16 07:58 92 08/03/16 06:00 79 18 124/79 Capillary Refill : I&O Intake and Output 08/03/16 00:00 Intake Total 940 ml Output Total 1950 ml Balance -1010 ml Intake Oral 940 ml Output Urine Total 1950 ml General: Alert, Oriented X3, Cooperative, No Acute Distress HEENT: Atraumatic, PERRLA, EOMI, Mucous Memb Moist/[place] Neck: Supple, No JVD Lungs: Clear to Auscultation, Other (decreased breath sounds left base) Heart: Regular Rate Abdomen: Normal Bowel Sounds, Soft, No Tenderness Extremities: No Edema Skin: Other ( as per above) Neuro: Other (good strength) Results Lab Laboratory Tests 08/02/16 04:55: Albumin 2.9L, Anion Gap 11, BUN/Creatinine Ratio 17, Basophils # (Auto) 0.0, Basophils (%) (Auto) 0, Blood Urea Nitrogen 18, Calcium Level 8.8, Carbon Dioxide Level 27, Chloride Level 96L, Creatinine 1.06, Eosinophils # (Auto) 0.4H , Eosinophils (%) (Auto) 4, Estimat Glomerular Filtration Rate 50, Glucose Level 102, Hematocrit 27L, Hemoglobin 8.8L, Lymphocytes # (Auto) 1.7, Lymphocytes (%) (Auto) 19, Mean Corpuscular Hemoglobin 29, Mean Corpuscular Hemoglobin Concent 33, Mean Corpuscular Volume 89, Mean Platelet Volume 9.3, Monocytes # (Auto) 0.9, Monocytes (%) (Auto) 10, Neutrophils # (Auto) 6.1, Neutrophils (%) (Auto) 67, Phosphorus Level 4.5, Platelet Count 503H, Potassium Level 3.8, Red Blood Count 3.02L, Red Cell Distribution Width 14.8H, Sodium Level 134L, White Blood Count 9.2 Assessment/Plan Assessment General debil s/p Valve replacement OA of knee Postop constipation-improved HTN controlled HLP Postop fever-Labs and CXR ordered=done fever resolved and pleural effusion treated-but still persists Will ask Hospitalist to review-done OK for Voltaran capsule -home med see orders-d/cd due to nausea. See orders Discharge tomorrow most likely with f/u cxr with DR Duenas on outpatient basis if OK with DR Joseph Plan Continue PT/OT Pain management F/U with Hospitalist re postop fever-done Check labs and CXR as per above-done Team Conference held 07-28-16-See report for full functional update and POC and ELOS Discharge tentatively set for tomorrow. HOLLIE RIVERA MD Aug 03, 2016 16:57
[2016-08-03 18:16] VITALS: BP 146/73
[2016-08-03] MEDS: ATORVASTATIN 40 MG (LIPITOR) TABLET PO SCH (20:23)
[2016-08-04 04:36] VITALS: BP 130/70
[2016-08-04] MEDS: KCL 20 MEQ TAB (K-DUR) PO SCH (06:11)
[2016-08-04] MEDS: FERROUS SULF 325 MG (IRON) TAB PO SCH ×2 (06:11→13:10)
[2016-08-04] MEDS: BUMETANIDE 1 MG (BUMEX) TAB PO SCH (06:11)
[2016-08-04] MEDS: RT-ALBUTEROL SULF 2.5 MG/3 ML PRE-MIX VIAL INH SCH (07:28)
--- NOTE | 2016-08-04 08:26 | Diagnostic Imaging Report ---
INDICATION: Left pleural effusion. PA and lateral chest. FINDINGS: There continues to be a moderate-sized left pleural effusion. There are postop changes from valve repair surgery. Right lung remains clear. IMPRESSION: Stable chest with left pleural effusion unchanged from the previous day. Dictated by: Dictated on workstation # [id number]
--- NOTE | 2016-08-04 09:03 | PM & R (SOAP) Progress Note ---
Subjective Subjective/Events-last exam Patient was seen in her room this AM Patiuent anxious for discharge today DR Ronquillo has OKD CXR this AM stable Left pleural effusion Patient will see DR Duenas Surgeon in [facility]-the next week on tuesday Objective Exam Last Set of Vital Signs Vital Signs Date Time Temp Pulse Resp B/P Pulse Ox O2 Delivery O2 Flow Rate FiO2 08/04/16 07:28 92 Room Air 08/04/16 04:36 99.0 78 16 130/70 Capillary Refill : I&O Intake and Output 08/04/16 00:00 Intake Total 1200 ml Output Total 1800 ml Balance -600 ml Intake Oral 1200 ml Output Urine Total 1800 ml # Bowel Movements 1 # [place] 1 General: Alert, Oriented X3, Cooperative, No Acute Distress HEENT: Atraumatic, PERRLA, EOMI, Mucous Memb Moist/[place] Neck: Supple, No JVD Lungs: Clear to Auscultation, Other (decreased breath sounds left base) Heart: Regular Rate Abdomen: Normal Bowel Sounds, Soft, No Tenderness Extremities: No Edema Skin: Other ( as per above) Neuro: Other (good strength) Results Lab Laboratory Tests 08/02/16 04:55: Albumin 2.9L, Anion Gap 11, BUN/Creatinine Ratio 17, Basophils # (Auto) 0.0, Basophils (%) (Auto) 0, Blood Urea Nitrogen 18, Calcium Level 8.8, Carbon Dioxide Level 27, Chloride Level 96L, Creatinine 1.06, Eosinophils # (Auto) 0.4H , Eosinophils (%) (Auto) 4, Estimat Glomerular Filtration Rate 50, Glucose Level 102, Hematocrit 27L, Hemoglobin 8.8L, Lymphocytes # (Auto) 1.7, Lymphocytes (%) (Auto) 19, Mean Corpuscular Hemoglobin 29, Mean Corpuscular Hemoglobin Concent 33, Mean Corpuscular Volume 89, Mean Platelet Volume 9.3, Monocytes # (Auto) 0.9, Monocytes (%) (Auto) 10, Neutrophils # (Auto) 6.1, Neutrophils (%) (Auto) 67, Phosphorus Level 4.5, Platelet Count 503H, Potassium Level 3.8, Red Blood Count 3.02L, Red Cell Distribution Width 14.8H, Sodium Level 134L, White Blood Count 9.2 Assessment/Plan Assessment General debil s/p Valve replacement OA of knee Postop constipation-improved HTN controlled HLP Postop fever-Labs and CXR ordered=done fever resolved and pleural effusion treated-but still persists-stable DR Duenas [facility] f/u Will ask Hospitalist to review-done OK for Voltaran capsule -home med see orders-d/cd due to nausea. Left Pleural effusion Plan Discharge today to home with C and her daughter from F/U with PCP and DR Duenas Cardiac Surgery Norman SIEGEL. HOLLIE RIVERA MD Aug 04, 2016 09:03 ELOS Discharge tentatively set for tomorrow. HOLLIE RIVERA MD Aug 04, 2016 09:03
[2016-08-04] MEDS: SIMETHICONE 80 MG (MYLICON) CHEW PO SCH ×2 (09:06→13:00)
[2016-08-04] MEDS ORDERED: HYDR-3812 PO (09:13)
[2016-08-04] MEDS ORDERED: BUME1TAB4 PO (09:13)
[2016-08-04] MEDS: LEVOFLOXACIN 750 MG TAB (LEVAQUIN) PO SCH (09:23)
[2016-08-04] MEDS: DOCUSATE SODIUM 100 MG (COLACE) CAP PO SCH (09:23)
[2016-08-04] MEDS: meTOproloL SUCCINATE 50 MG (TOPROL XL) TAB PO SCH (09:23)
[2016-08-04] MEDS: HYDROcodone/APAP 5 MG/325 MG (LORTAB) TAB PO PRN (09:23)
[2016-08-04] MEDS: lisINopril 20 MG (ZESTRIL) TAB PO SCH (09:23)
--- NOTE | 2016-08-04 10:10 | Therapy Team Discharge Summary ---
Therapy Discharge Summary Discharge Recommendations Date of Discharge 08-04-16 Therapy D/C Recommendations: Home Independently Occupational Therapy Pt. has been seen by occupational therapy to increase overall strength and mobility with daily tasks. Pt. has met all goals, and is able to complete daily tasks with Mod I. Pt. is transferring home and will have some assistance from daughter. Would benefit from a walker, but no other equipment is needed at this time. PT Shelter Goals Shelter Goals PT Shelter Goals Time Frame: Aug 16, 2016 Transfers (B,C,W/C) (FIM): 6 Roll Left to Right (QC): 6 Sit to Lying (QC): 6 Lying-Sitting on Side/Bed(QC): 6 Sit to Stand (QC): 6 Chair/Wuh-wl-[place] Xfer(QC): 6 Car Transfer (QC): 4 Does the Patient Walk: Yes Gait (FIM): 6 Distance: 500' Walk 10 feet (QC): 6 Walk 10ft-Uneven Surface(QC): 6 Walk 50ft with 2 Turns (QC): 6 Walk 150 ft (QC): 6 Gait Level of Assist: 6 Gait Assistive Device: FWW Stairs (FIM): 5 # of Steps: 12 1 Step (curb) (QC): 4 4 Steps (QC): 4 12 Steps (QC): 4 Stairs Level Of Assist: 5 Picking up an Object (QC): 5 OT Shelter Goals Shelter Goals Time Frame: Aug 02, 2016 Eating (FIM): 6 (met-07/24/16) Eating (QC): 6 (met-07/24/16) Oral Hygiene (QC): 6 (met-07/24/16) Grooming(FIM): 6 (met-07/24/16) Bathing(FIM): 6 Shower/Bathe Self (QC): 6 (met-08/02/16) Upper Body Dressing(FIM): 6 (met-08/02/16) Upper Body Dressing (QC): 6 (met-08/02/16) Lower Body Dressing(FIM): 6 (met-08/02/16) Lower Body Dressing (QC): 6 (met-08/02/16) On/Off Footwear (QC): 6 (met-08/02/16) Toileting(FIM): 6 (met-07/24/16) Toileting Hygiene (QC): 6 (met-08/02/16) Transfers (B,C,W/C) (FIM): 6 (met-08/02/16) Toilet/Commode Transfer(FIM): 6 (met-08/02/16) Toilet/Commode Transfer (QC): 6 (met-08/02/16) Shower Transfer(FIM): 6 (met-08/02/16) Additional Goals: 1-Demonstrate ADL Tasks, 2-Verbalize Understanding, 3- ImproveStrength/Renetta 1=Demonstrate adherence to instructed precautions during ADL tasks. 2=Patient will verbalize/demonstrate understanding of assistive devices/ modifications for ADL. 3=Patient will improve strength/tolerance for activity to enable patient to perform ADL's. CORTNEY ANDRADE OT Aug 04, 2016 10:10
--- NOTE | 2016-08-04 11:03 | Progress Note-Hospitalist ---
Progress Note HPI/CC on Admission Pt's main complaint is the back pain and we will start Ultram to see if that helps her since the Lortab causes her to be "loopy. Progress Notes/Assess & Plan Date Seen 08/04/16 Admission Dx/Process status post aortic valve replacement Paroxysmal atrial fibrillation Severe back pain with stability Indigestion CAD Diagonsis/Assessment & Plan Dr. Ronquillo Review: Pt is noncompliant with medical advice. X-ray was done at [place], and reports were sent to surgeon. Surgeon stated that they had a thoracentesis prior to pt coming to [facility]. Aspirin and Eliquis need to be stopped for 5 days, and surgeon stated that the current left thoracentesis could be performed at either [facility] or [place]. Will pursue surgery at [place]. 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 Pt is no longer taking Eliquis nor Aspirin. 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 Patient Interview: Pt states that she wishes to DC. Dr. Montgomery informs pt that fluid on lung will be removed Tuesday and the arrangements will be made. Physical exam was stable. Pt states that she has concerns regarding pain during her thoracentesis. Pt is unsure if she has a follow-up with Dr. Powell. Pt is willing to have thoracentesis done at [place]. Scribed by Daniel Watters under the direct supervision of Dr. Montgomery. AFVSS, Pleasant, O x 3 RRR, CTAB no rales noted trace edema improved Assessment: s/p aortic valve replacement Paroxysmal atrial fibrillation Severe back pain with debility Indigestion CAD Edema Low grade fever and mild elevation in wbc now completed Levaquin likely due to pleural effusion Plan: Continue pain meds on a scheduled basis. Lactulose prn Cardiology evaluation appreciated Left thoracentesis Tuesday at [place] No Eliquis or Aspirin for 5 days prior to operation Follow-up with Dr. Powell on the 08/09 ERMA MONTGOMERY DO Aug 04, 2016 11:03 ERMA MONTGOMERY DO Aug 04, 2016 11:03
--- NOTE | 2016-08-04 14:41 | Therapy Team Discharge Summary ---
Therapy Discharge Summary Discharge Recommendations Date of Discharge Therapy D/C Recommendations: Home Independently Physical Therapy Patient came to rehab following surgery for aortic stenosis and valve replacement. Upon admission, patient could perform bed mobility with SBA and transfers with CGA, she could ambulate 150' with a rolling walker with CGA, and can go up and down 4 steps using 2 handrails with CGA. Patient has been performing bed mobility and transfer training, balance and endurance training, functional strengthening, gait training, stair training, and education. Patient has made good progress and has met all of her terminal carman goals except for distance on ambulation. Now, patient performs bed mobility with independence, transfers with mod I, ambulates 300' with a rolling walker with mod I, and can go up and down 12 steps using 2 handrails with mod I. Patient is being discharged from this facility today and will be discharged from PT at this time. PT Longterm Goals Sheet Metal Assembler And Riveter Goals PT Longterm Goals Time Frame: Aug 16, 2016 Transfers (B,C,W/C) (FIM): 6 Roll Left to Right (QC): 6 Sit to Lying (QC): 6 Lying-Sitting on Side/Bed(QC): 6 Sit to Stand (QC): 6 Chair/Gxz-dh-Hygnd Xfer(QC): 6 Car Transfer (QC): 4 Does the Patient Walk: Yes Gait (FIM): 6 Distance: 500' Walk 10 feet (QC): 6 Walk 10ft-Uneven Surface(QC): 6 Walk 50ft with 2 Turns (QC): 6 Walk 150 ft (QC): 6 Gait Level of Assist: 6 Gait Assistive Device: FWW Stairs (FIM): 5 # of Steps: 12 1 Step (curb) (QC): 4 4 Steps (QC): 4 12 Steps (QC): 4 Stairs Level Of Assist: 5 Picking up an Object (QC): 5 OT Sheet Metal Assembler And Riveter Goals Longterm Goals Time Frame: Aug 02, 2016 Eating (FIM): 6 (met-07/24/16) Eating (QC): 6 (met-07/24/16) Oral Hygiene (QC): 6 (met-07/24/16) Grooming(FIM): 6 (met-07/24/16) Bathing(FIM): 6 Shower/Bathe Self (QC): 6 (met-08/02/16) Upper Body Dressing(FIM): 6 (-08/02/16) Upper Body Dressing (QC): 6 (met-08/02/16) Lower Body Dressing(FIM): 6 ([facility]-08/02/16) Lower Body Dressing (QC): 6 (met-08/02/16) On/Off Footwear (QC): 6 (met-08/02/16) Toileting(FIM): 6 (met-07/24/16) Toileting Hygiene (QC): 6 (met-08/02/16) Transfers (B,C,W/C) (FIM): 6 (met-08/02/16) Toilet/Commode Transfer(FIM): 6 (met-08/02/16) Toilet/Commode Transfer (QC): 6 (-08/02/16) Shower Transfer(FIM): 6 (-08/02/16) Additional Goals: 1-Demonstrate ADL Tasks, 2-Verbalize Understanding, 3- ImproveStrength/Renetta 1=Demonstrate adherence to instructed precautions during ADL tasks. 2=Patient will verbalize/demonstrate understanding of assistive devices/ modifications for ADL. 3=Patient will improve strength/tolerance for activity to enable patient to perform ADL's. JANET KEENE PT Aug 04, 2016 14:41
--- NOTE | 2016-08-04 14:48 | Occ Therapy Rehab Re-Cert ---
OT Re-Certification Form Plan of Care: ADL Retraining, Functional Mobility, UE Funct Exercise/Act Pt. remained in hospital longer than plan of care due to stomach pain and discomfort. Please extend existing POC one week from original date, 08-09-16. Had small procedure performed this date before discharging. Treatment Duration: 2 weeks # of days/week 5-6 Minutes/Day (M-F): 60-90 Minutes/Day (Sat/Matute): 15-30 Agreement: Yes Rehab Potential: Good OT Short Term Goals Short Term Goals Transfers (B,C,W/C) (FIM): 5 (met-07/24/16) 1=Demonstrate adherence to instructed precautions during ADL tasks. 2=Patient will verbalize/demonstrate understanding of assistive devices/ modifications for ADL. 3=Patient will improve strength/tolerance for activity to enable patient to perform ADL's. OT Group Home Goals Health Sciences Department Chair Goals Eating (FIM): 6 (met-07/24/16) Grooming(FIM): 6 (met-07/24/16) Bathing(FIM): 6 Upper Body Dressing(FIM): 6 (met-08/02/16) Lower Body Dressing(FIM): 6 (met-08/02/16) Toileting(FIM): 6 (met-07/24/16) Transfers (B,C,W/C) (FIM): 6 (met-08/02/16) Toilet/Commode Transfer(FIM): 6 (met-08/02/16) Shower Transfer(FIM): 6 (met-08/02/16) Additional Goals: 1-Demonstrate ADL Tasks, 2-Verbalize Understanding, 3- ImproveStrength/Renetta 1=Demonstrate adherence to instructed precautions during ADL tasks. 2=Patient will verbalize/demonstrate understanding of assistive devices/ modifications for ADL. 3=Patient will improve strength/tolerance for activity to enable patient to perform ADL's. CORTNEY ANDRADE OT Aug 04, 2016 14:48
--- NOTE | 2016-08-18 08:53 | DISCHARGE SUMMARY ---
DATE OF ADMISSION: 07/25/2016 DATE OF DISCHARGE: 08/04/2016 HISTORY OF PRESENT ILLNESS: The patient is a 81-year-old female who presented to an outside hospital with complains of shortness of breath. She was found to be in volume overload and with flash pulmonary edema. She required BiPAP, IV diuretics that improved her symptoms. Echocardiogram revealed severe aortic stenosis with valve area of 0.6 cm and a mean gradient of 78 mmHg. She was also diagnosed with acute diastolic dysfunction probably related to her left ventricular hypertrophy. She underwent left heart catheterization by Dr. Linn which demonstrated mild to moderate multivessel coronary artery disease. She was transferred to [facility] for surgical evaluation of her severe aortic stenosis and the patient underwent repair with Dr. Duenas cardiac surgery. The patient was then referred to Inpatient Rehabilitation Unit at [facility] due to her general debilitation. Her PCP is Dr. Dawn Powell. PAST MEDICAL HISTORY: 1. Coronary artery disease. 2. Hyperlipidemia. 3. Hypertension. 4. Cataracts. 5. Aortic stenosis. 6. OA. 7. Chronic back pain. 8. Cataract extraction. 9. Lumpectomy. SOCIAL HISTORY: She lives alone, former smoker. MEDICAL COURSE: The patient was followed by Dr. Lawrence and Dr. Joseph and Dr. Linn while on rehab unit. Medications were adjusted. She was noted to have a left pleural effusion. Diuretics and medications were adjusted. Reports were sent to Dr. Duenas and the patient is going to have a thoracentesis done at [facility] in [place], which we will be done on the . Her O2 sats were stable 92% on room air. The patient had no dyspnea on exertion and at rest despite the pleural effusion. Follow-up chest x-ray on day of discharge reveals stable pleural effusion. Blood pressure was 130/70 on 08/04, respirations 16, pulse 78, temperature is 99. The patient was declining some therapies due to various issues and it was felt proper to discharge her at this time with follow-up with Dr. Duenas the following Tuesday. CBC on 08/02 showed WBC 9.2, H&H 8.8/27, platelet count 503,000. Was improved from 8.4, hemoglobin on 07/30. Chemistry on 08/02 showed improved serum sodium 134 from 131 on 07/30, chloride was 96 and 08/02, BUN and creatinine were all within normal limits. Blood glucose 102, phosphorus 0.5, albumin low at 2.9, fairly stable. UA was negative on 07/30. REHABILITATION COURSE: The patient was assessed by speech therapy upon admission and found to be cognitively intact and they signed off. PT notes upon admission, the patient could performed bed mobility with standby assist and transfers with contact guard. Could ambulate 150 feet with a wheeled walker with contact guard. Upon discharge, she was modified independent for bed mobility, and transfers and ambulated 200 feet with a wheeled walker, modified independent. OT notes she has met all goals and was able to complete daily tasks with modified independence upon discharge; she would benefit from a walker. Upon admission, the patient was modified independent for eating, standby assist for grooming. Min assist for oral hygiene shower bathing self. Set up to standby assist for dressing and sponge bath and toilet and commode transfers. DISCHARGE INSTRUCTIONS: The patient is discharged to home with home health care. Prescription for DME front wheeled walker was provided. The patient will follow-up with Dr. Dawn Powell PCP and follow-up with Dr. Duenas as per above at [facility] for thoracentesis and follow-up with him. Continue current diet. Follow-up with Dr. Linn. A follow-up CBC on 08/12 DISCHARGE MEDICATIONS: 1. Bumex 2 mg p.o. b.i.d. before meals. 2. Lortab 5/325, 1 to two tablets p.o. q.4 hours p.r.n. moderate pain. 3. Eliquis 5 mg p.o. b.i.d. 4. Lipitor 40 mg p.o. at bedtime. 5. Dulcolax 5 to 10 mg p.o. daily p.r.n. constipation. 6. Ferrous Sulfate 225 mg p.o. t.i.d. with meals. 7. Lisinopril 20 mg p.o. b.i.d. 8. Toprol-XL 50 mg p.o. b.i.d. 9. KCL 20 mEq p.o. daily. DISCHARGE DIAGNOSES: 1. 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 Duenas, [facility] in [place], [place]. 2. Incision is healing well. 3. Coronary artery disease, stable on medications. 4. Postoperative constipation, treated. 5. Hyperlipidemia, on medications. 6. Hypertension, controlled with medication. 7. Paroxysmal atrial fibrillation, controlled with medication. 8. Osteoarthritis of the knee utilizes pain medication. 9. Chronic back pain use pain medication. 10. Anemia, improving on replacement. 11. Peripheral edema, improving with diuretics. 12. History of tobaccoism. 13. Coronary stent status. 14. Pleural effusion - she will have follow-up, thoracentesis at [facility] Dr. Duenas on an outpatient basis. 15. Noncompliance with medical treatment. CONDITION AT DISCHARGE: Improved and stable. PROGNOSIS: Rehab prognosis appears good for completing the treatment at home and return to independent living once she has had the follow-up thoracentesis with her cardiac surgeon, she should continue to improve further, Job ID: [id number] Dictated Date: 08/17/2016 09:42:52 Card Decorator Date: 08/17/2016 13:30:27/yonny
== END 2016-08-04 16:10 | disposition home health service (06) | DRG 949 ==
PROVIDERS: ADMIT Physical Medicine & Rehabilitation; ATTEND Physical Medicine & Rehabilitation
DX: Z48.812 Encounter for surgical aftercare following surgery on the circulatory system (principal); Z95.2 Presence of prosthetic heart valve; J90 Pleural effusion, not elsewhere classified; I25.10 Atherosclerotic heart disease of native coronary artery without angina pectoris; K59.00 Constipation, unspecified; E78.5 Hyperlipidemia, unspecified; I10 Essential (primary) hypertension; I48.0 Paroxysmal atrial fibrillation; M17.9 Osteoarthritis of knee, unspecified; M54.9 Dorsalgia, unspecified; D64.9 Anemia, unspecified; R60.0 Localized edema; Z87.891 Personal history of nicotine dependence; Z95.5 Presence of coronary angioplasty implant and graft; Z91.19 Patient's noncompliance with other medical treatment and regimen
CPT/HCPCS: 36415; 71020; 71035; 80053; 80069; 81000; 85025; 94640; 94664; 94760

== ENCOUNTER → 2016-08-12 | Outpatient (CLI) | payer MEDICARE ==
[~2016-08-12] MED LIST changes: +APIX5TAB PO; +ASPI-999 PO; +ATOR40TA PO; +BISA-65 PO; +BUME1TAB4 PO; +DOCU-143 PO; +FERR-74 PO; +HYDR-3729 PO; +HYDR-3812 PO; +LEVO750T9 PO; +LISI-552 PO; +METO-352 PO; +POTA-53 PO
[2016-08-12 14:00] LABS: BASOPHILS % (AUTO) 0 % (0-10); EOSINOPHILS # (AUTO) 0.3 10^3/uL (0.0-0.3); EOSINOPHILS % (AUTO) 3 % (0-10); LYMPHOCYTES % (AUTO) 18 % (12-44); MEAN CORPUSCULAR HEMOGLOBIN 29 PG (25-34); MEAN CORPUSCULAR HGB CONC 33 G/DL (32-36); MEAN CORPUSCULAR VOLUME 88 FL (80-99); MEAN PLATELET VOLUME 10.1 FL (7.4-10.4); MONOCYTES # (AUTO) 1.2 X 10^3 (0.0-1.0); MONOCYTES % (AUTO) 11 % (0-12); NEUTROPHILS # (AUTO) 7.5 X 10^3 (1.8-7.8); NEUTROPHILS % (AUTO) 68 % (42-75); PLATELET COUNT 542 10^3/uL (130-400); RED BLOOD COUNT 4.34 10^6/uL (4.35-5.85); RED CELL DISTRIBUTION WIDTH 14.8 % (10.0-14.5)
--- OUTSIDE RECORDS SUMMARY | 2016-08-12 23:06 | XMS REPORT | Continuity of Care Document ---
Author Author [facility] Organization [facility] Address Unknown Phone Unavailable Care Team Providers Care Litigation Specialist Name Role Phone PCP Unavailable Source Comments Some departments are not documenting in the electronic medical record. If you do not see the information that you expected, contact Release of Information in the Health Information Management department at [phone] for further assistance in locating additional records.[facility] Active Allergies and Adverse Reactions Not on [...]
== END ==
LOC: HH 13:30
PROVIDERS: ATTEND Thoracic Surgery (Cardiothoracic Vascular Surgery)
DX: I25.10 Atherosclerotic heart disease of native coronary artery without angina pectoris (principal)
CPT/HCPCS: 85025

== ENCOUNTER 2016-10-21 12:30 | Outpatient (RCR) | payer MEDICARE ==
--- OUTSIDE RECORDS SUMMARY | 2016-09-27 12:09 | XMS REPORT | Continuity of Care Document ---
Author Author [facility] Organization [facility] Address Unknown Phone Unavailable Care Team Providers Care Coloring Machine Operator Name Role Phone PCP Unavailable Source Comments Some departments are not documenting in the electronic medical record. If you do not see the information that you expected, contact Release of Information in the Health Information Management department at [phone] for further assistance in locating additional records.[facility] Active Allergies and Adverse Reactions Not [...]
== END 2016-12-26 | disposition home or self-care (01) ==
LOC: CARD 12:30
PROVIDERS: ATTEND Internal Medicine Interventional Cardiology
DX: I35.0 Nonrheumatic aortic (valve) stenosis (principal); I10 Essential (primary) hypertension; I48.0 Paroxysmal atrial fibrillation
CPT/HCPCS: 93270

== ENCOUNTER → 2018-07-28 | Emergency (ER) | payer MEDICARE, OTHER ==
[~2018-07-28] VITALS: Ht 160 cm; Wt 61.2 kg
[~2018-07-28] MED LIST changes: +ACHD5005 PO; -FERR-74 PO; +FERR325T18 PO; -HYDR-3812 PO; +HYDROcodone/APAP 5 MG/325 MG (LORTAB) TAB PO ONE; +TETANUS & DIPHTHERIA TOX,ADULT 0.5 ML (TENIVAC) IM ONE; +fentaNYL INJECTION 100 MCG/2 ML AMP ONE
[2018-07-28 15:00] VITALS: BP 186/85
--- NOTE | 2018-07-28 15:05 | ED Lower Extremity ---
General Chief Complaint: Lower Extremity Stated Complaint: R KNEE PAIN Nursing Triage Note: pt arrived via EMS d/t fall at home. Right knee pain et swelling Nursing Sepsis Screen: No Definite Risk Source: patient, EMS Exam Limitations: no limitations History of Present Illness Date Seen by Provider: Jul 28, 2018 Time Seen by Provider: 15:02 Initial Comments To ER per EMS from home with reports of right knee pain and swelling. This occurred just prior to arrival earlier today. She tripped over something in her dining room and she states that she has bad arthritis in the right knee anyway at this is the knee that she landed on. She landed with the knee flexed. She did not hit her head and denies any other pains. Onset: just prior to arrival Severity: moderate Pain/Injury Location: right knee Method of Injury: fell Modifying Factors: Worse With Movement Allergies and Home Medications Allergies Coded Allergies: No Known Drug Allergies (Unverified , 07/12/16) Home Medications Apixaban 5 Mg Tablet, 5 MG PO BID, (Reported) Atorvastatin Calcium 40 Mg Tablet, 40 MG PO HS, (Reported) Bisacodyl 5 Mg Tablet.dr, 5-10 MG PO DAILY PRN for CONSTIPATION, (Reported) Bumetanide 1 Mg Tablet, 2 MG PO BIDAC Prescribed by: HOLLIE RIVERA on 08/04/16912 Ferrous Sulfate 325 Mg Tablet, 325 MG PO TIDWM, (Reported) Hydrocodone Bit/Acetaminophen 1 Each Tablet, 1-2 TAB PO Q4H PRN for MODERATE PAIN Prescribed by: HOLLIE RIVERA on 08/04/16912 Lisinopril 20 Mg Tablet, 20 MG PO BID, (Reported) Metoprolol Succinate 50 Mg Tab.er.24h, 50 MG PO BID, (Reported) Potassium Chloride 20 Meq Tablet.er, 20 MEQ PO DAILY, (Reported) Patient Home Medication List Home Medication List Reviewed: Yes Review of Systems Constitutional: see HPI EENTM: see HPI Respiratory: no symptoms reported Cardiovascular: no symptoms reported Genitourinary: no symptoms reported Musculoskeletal: see HPI Skin: no symptoms reported Psychiatric/Neurological: No Symptoms Reported Past Cqufkqk-Gmlxct-Ggryat Hx Patient Social History Alcohol Beverage of Choice: Beer Type Used: Cigarettes Former Smoker, Quit: Jul 25, 1991 Recent Foreign Travel: No Contact w/Someone Who Travel: No Recent Infectious Disease Expo: No Recent Hopitalizations: Yes (aortic valve replacement) Immunizations Up To Date Tetanus Booster (TDap): Unknown PED Vaccines UTD: Yes Date of Pneumonia Vaccine: Jul 19, 2016 Seasonal Allergies Seasonal Allergies: No Past Medical History Surgeries: Yes Cardiac, Coronary Stent Respiratory: No Currently Using CPAP: No Currently Using BIPAP: No Cardiac: Yes Atrial Fibrillation, Coronary Artery Disease, High Cholesterol, Hypertension Neurological: No Reproductive Disorders: No Female Reproductive Disorders: Denies Sexually Transmitted Disease: No HIV/AIDS: No Genitourinary: No Gastrointestinal: No Chronic Constipation Endocrine: No HEENT: Yes Cataract Cancer: No Psychosocial: No Integumentary: No Blood Disorders: No Adverse Reaction/Blood Tranf: No Family Medical History Patient reports no known family medical history. No Pertinent Family Hx Physical Exam Vital Signs Vital Signs - First Documented 07/28/18 14:47 Temp 99.4 Pulse 68 Resp 18 B/P (MAP) 180/92 (121) Pulse Ox 97 O2 Delivery Room Air Capillary Refill : Less Than 3 Seconds Height, Weight, BMI Height: 5'3.00" Weight: 135lbs. 6.0oz. [id number]; 26.7 BMI Method:Stated General Appearance: WD/WN, no apparent distress HEENT: PERRL/EOMI, normal ENT inspection Neck: non-tender, full range of motion Respiratory: no respiratory distress, no accessory muscle use Hips: bilateral hip non-tender, bilateral hip normal inspection, bilateral hip normal range of motion Legs: bilateral leg non-tender, bilateral leg normal inspection, bilateral leg normal range of motion Knees: right knee deformity, right knee pain, right knee soft tissue tenderness , right knee swelling, right knee other (there is swelling to the anterior medial aspect of the knee) Ankles: bilateral ankle non-tender, bilateral ankle normal inspection, bilateral ankle normal range of motion Feet: right foot non-tender, right foot normal inspection, right foot other ( she is unable to lift her right foot off the bed due to pain in the knee) Neurologic/Psychiatric: alert, normal mood/affect, oriented x 3 Skin: normal color, warm/dry Progress/Results/Core Measures Results/Orders Lab Results Laboratory Tests Test 07/28/18 15:36 07/28/18 15:44 Range/Units White Blood Count 8.9 4.3-11.0 10^3/uL Red Blood Count 5.11 4.35-5.85 10^6/uL Hemoglobin 14.9 11.5-16.0 G/DL Hematocrit 45 35-52 % Mean Corpuscular Volume 87 80-99 FL Mean Corpuscular Hemoglobin 29 25-34 PG Mean Corpuscular Hemoglobin Concent 34 32-36 G/DL Red Cell Distribution Width 14.3 10.0-14.5 % Platelet Count 285 130-400 10^3/uL Mean Platelet Volume 10.1 7.4-10.4 FL Neutrophils (%) (Auto) 79 H 42-75 % Lymphocytes (%) (Auto) 15 12-44 % Monocytes (%) (Auto) 6 0-12 % Eosinophils (%) (Auto) 1 0-10 % Basophils (%) (Auto) 0 0-10 % Neutrophils # (Auto) 7.0 1.8-7.8 X 10^3 Lymphocytes # (Auto) 1.3 1.0-4.0 X 10^3 Monocytes # (Auto) 0.5 0.0-1.0 X 10^3 Eosinophils # (Auto) 0.1 0.0-0.3 10^3/uL Basophils # (Auto) 0.0 0.0-0.1 10^3/uL Urine Color YELLOW Urine Clarity SLIGHTLY CLOUDY Urine pH 6 5-9 Urine Specific Avella 1.025 H 1.016-1.022 Urine Protein 2+ H NEGATIVE Urine Glucose (UA) NEGATIVE NEGATIVE Urine Ketones NEGATIVE NEGATIVE Urine Nitrite NEGATIVE NEGATIVE Urine Bilirubin NEGATIVE NEGATIVE Urine Urobilinogen NORMAL NORMAL MG/DL Urine Leukocyte Esterase 1+ H NEGATIVE Urine RBC (Auto) 1+ H NEGATIVE Urine RBC 2-5 H /HPF Urine WBC 0-2 /HPF Urine Squamous Epithelial Cells RARE /HPF Urine Crystals NONE /LPF Urine Bacteria TRACE /HPF Urine Casts PRESENT /LPF Urine Hyaline Casts 10-25 H /LPF Urine Mucus SMALL H /LPF Urine Culture Indicated NO My Orders Orders - KVNG RAMOS APRN Knee, Right, 3 Views (07/28/18 14:53) Hydrocodone/Apap 5/325 Tablet (Lortab 5 (07/28/18 15:00) Thomas Cath (07/28/18 15:26) Cbc With Automated Diff (07/28/18 15:26) Comprehensive Metabolic Panel (07/28/18 15:26) Iv Heplock-Insert (Order) (07/28/18 15:26) Ua Culture If Indicated (07/28/18 15:40) Medications Given in ED Current Medications Medications Dose Ordered Sig/Hedy Route Start Time Stop Time Status Last Admin Dose Admin Acetaminophen/ Hydrocodone Bitart 1 tab ONCE ONCE PO 07/28/18 15:00 07/28/18 15:01 DC 07/28/18 14:58 1 TAB Vital Signs/I&O 07/28/18 14:47 Temp 99.4 Pulse 68 Resp 18 B/P (MAP) 180/92 (121) Pulse Ox 97 O2 Delivery Room Air Blood Pressure Mean: 121 Diagnostic Imaging Diagonstic Imaging: Xray Comments NAME: BEENA SALDANA MED REC#: [id number] PT STATUS: REG ER : 1935 PHYSICIAN: KVNG RAMOS APRN ADMIT DATE: 07/28/18/ER Draft Date of Exam:07/28/18 KNEE, RIGHT, 3 VIEWS INDICATION: Fall with right knee pain. TIME OF EXAM: 3:15 p.m. FINDINGS: Three views of the right knee show normal alignment. There is medial compartmental degenerative change with mild joint space narrowing and marginal spurring. There is a lucency identified in the intercondylar notch on the frontal view. There is also an obliquely oriented lucency through the distal femoral diaphysis and metaphysis. Features are consistent with a fracture. No significant displacement or angulation is seen. There appears to be a small lipohemarthrosis in the suprapatellar location. The proximal tibia and fibula are intact. IMPRESSION: Nondisplaced distal femur fracture with probable intra-articular extension at the intercondylar notch. Dictated on workstation # [id number] Dict: 07/28/18 1545 Trans: 07/28/18 1551 [id number] Interpreted by: SCAR FALLON MD Electronically signed by: Departure Communication (Admissions) [id number]-we do not have orthopedic services available here today or at all this weekend. Patient will require transfer to another facility. She follows with cardiology Dr. Johnson at [facility] in [place]. I did place her in a posterior long-leg splint using 4 inch Ortho-Glass. The dorsalis pedis pulse on the right is diminished as compared to the left but I am able to Doppler strong blood flow at this location. 1611- Spoke with Dr. Urbnia from the emergency room and Dr. Anhtony from orthopedics. Both of whom accept the patient in transfer. Patient states that she was formerly on Eliquis Dr. Johnson had her stop that about a year ago. Impression Primary Impression: Fracture of femur Qualified Codes: S72.401A - Unspecified fracture of lower end of right femur, initial encounter for closed fracture Disposition: XFER [facility] Condition: Stable Departure-Patient Inst. Referrals: SAMIR FOX MD (PCP/Family) Primary Care Physician KVNG RAMOS APRN Jul 28, 2018 15:05
[2018-07-28 15:42] LABS: BASOPHILS % (AUTO) 0 % (0-10); EOSINOPHILS # (AUTO) 0.1 10^3/uL (0.0-0.3); EOSINOPHILS % (AUTO) 1 % (0-10); HEMATOCRIT 45 % (35-52); HEMOGLOBIN 14.9 G/DL (11.5-16.0); LYMPHOCYTES # (AUTO) 1.3 X 10^3 (1.0-4.0); LYMPHOCYTES % (AUTO) 15 % (12-44); MEAN CORPUSCULAR HEMOGLOBIN 29 PG (25-34); MEAN CORPUSCULAR HGB CONC 34 G/DL (32-36); MEAN CORPUSCULAR VOLUME 87 FL (80-99); MEAN PLATELET VOLUME 10.1 FL (7.4-10.4); MONOCYTES # (AUTO) 0.5 X 10^3 (0.0-1.0); MONOCYTES % (AUTO) 6 % (0-12); NEUTROPHILS % (AUTO) 79 % (42-75); PLATELET COUNT 285 10^3/uL (130-400); RED BLOOD COUNT 5.11 10^6/uL (4.35-5.85); RED CELL DISTRIBUTION WIDTH 14.3 % (10.0-14.5); WHITE BLOOD COUNT 8.9 10^3/uL (4.3-11.0)
--- NOTE | 2018-07-28 15:45 | NUR ---
skin tear to right wrist et bruising to upper lip
--- NOTE | 2018-07-28 15:48 | NUR ---
125ml of urine residual after horn placement
[2018-07-28 15:52] LABS: BILIRUBIN,URINE NEGATIVE (NEGATIVE); CLARITY,URINE SLIGHTLY CLOUDY; COLOR,URINE YELLOW; GLUCOSE, URINE (UA) NEGATIVE (NEGATIVE); KETONES,URINE NEGATIVE (NEGATIVE); LEUKOCYTE ESTERASE ,URINE 1+ (NEGATIVE); NITRITE,URINE NEGATIVE (NEGATIVE); PH,URINE 6 (5-9); PROTEIN,URINE 2+ (NEGATIVE); UROBILINOGEN,URINE NORMAL (NORMAL)
--- NOTE | 2018-07-28 15:52 | Diagnostic Imaging Report ---
INDICATION: Fall with right knee pain. TIME OF EXAM: 3:15 p.m. FINDINGS: Three views of the right knee show normal alignment. There is medial compartmental degenerative change with mild joint space narrowing and marginal spurring. There is a lucency identified in the intercondylar notch on the frontal view. There is also an obliquely oriented lucency through the distal femoral diaphysis and metaphysis. Features are consistent with a fracture. No significant displacement or angulation is seen. There appears to be a small lipohemarthrosis in the suprapatellar location. The proximal tibia and fibula are intact. IMPRESSION: Nondisplaced distal femur fracture with probable intra-articular extension at the intercondylar notch. Dictated by: Dictated on workstation # [id number]
[2018-07-28 16:00] VITALS: BP 164/82
[2018-07-28 16:02] LABS: BACTERIA,URINE TRACE /HPF; SQUAMOUS EPITHELIAL CELL,UR RARE /HPF
[2018-07-28 16:03] LABS: WBC,URINE 0-2 /HPF
[2018-07-28 16:13] LABS: ALBUMIN 4.2 GM/DL (3.2-4.5); BILIRUBIN,TOTAL 0.8 MG/DL (0.1-1.0); CALCIUM 9.7 MG/DL (8.5-10.1); CREATININE SERUM 1.21 MG/DL (0.60-1.30); TOTAL PROTEIN 8.6 GM/DL (6.4-8.2)
[2018-07-28 17:23] VITALS: BP 142/68
--- NOTE | 2018-07-28 17:29 | NUR ---
report given to Norman GODINEZ
== END | disposition short-term general hospital (02) ==
LOC: EDUNIT# 14:47 → ER 14:48
DX: S72.491A Other fracture of lower end of right femur, initial encounter for closed fracture (principal); I48.91 Unspecified atrial fibrillation; I25.10 Atherosclerotic heart disease of native coronary artery without angina pectoris; E78.00 Pure hypercholesterolemia, unspecified; I10 Essential (primary) hypertension; Z87.19 Personal history of other diseases of the digestive system; Z95.5 Presence of coronary angioplasty implant and graft; Z95.0 Presence of cardiac pacemaker; Z87.891 Personal history of nicotine dependence; Z79.01 Long term (current) use of anticoagulants; W01.0XXA Fall on same level from slipping, tripping and stumbling without subsequent striking against object, initial encounter; Y92.009 Unspecified place in unspecified non-institutional (private) residence as the place of occurrence of the external cause
CPT/HCPCS: 36415; 51702; 73562; 80053; 81000; 85025; 90471; 90714